=== PATIENT | female | born 1955 | race Caucasian/White ===

== ENCOUNTER 2020-02-07 11:10 | Outpatient (REF) | payer BC, SELFPAY ==
[2020-02-07 15:03] LABS: Anion Gap 11 (12-20); Blood Urea Nitrogen 15 mg/dL (9-16); Calcium 8.4 mg/dL (8.4-10.2); Carbon Dioxide 35 mmol/L (22-29); Chloride 98 mmol/L (96-108); Cholesterol 182 mg/dL; Estimated Glomerular Filt Rate > 60; Glucose Fasting 117 mg/dL (60-99); HDL Cholesterol 46 mg/dL; LDL Cholesterol Calculated 123 mg/dl; Potassium 3.3 mmol/l (3.3-5.1); Sodium 141 mmol/L (135-145); Triglycerides 67 mg/dL
== END 2020-02-07 11:11 | disposition home or self-care (01) ==
LOC: HO.HMGCLDS 11:10
PROVIDERS: PCP Internal Medicine; Visit Provider Internal Medicine
DX: E78.9 Disorder of lipoprotein metabolism, unspecified (principal); I10 Essential (primary) hypertension
CPT/HCPCS: 80048; 80061

== ENCOUNTER 2020-07-18 10:18 | Outpatient (REF) | payer BC, SELFPAY ==
[2020-07-18 11:39] LABS: Hematocrit 42.3 % (37-47); Hemoglobin 13.7 g/dl (12.0-16.0)
[2020-07-18 11:47] LABS: Alanine Aminotransferase 20 U/L (0-31); Albumin Level 4.1 g/dL (3.5-5.0); Alkaline Phosphatase 63 U/L (39-117); Anion Gap 13 (12-20); Aspartate Amino Transferase 15 U/L (5-31); Bilirubin Total 0.9 mg/dL (0.0-1.0); Blood Urea Nitrogen 16 mg/dL (9-16); Carbon Dioxide 31 mmol/L (22-29); Chloride 97 mmol/L (96-108); Cholesterol 188 mg/dL; Estimated Glomerular Filt Rate > 60; Glucose Fasting 113 mg/dL (60-99); HDL Cholesterol 41 mg/dL; LDL Cholesterol Calculated 130 mg/dl; Potassium 3.1 mmol/L (3.3-5.1); Sodium 138 mmol/L (135-145); Total Protein 6.8 g/dL (6.5-8.0); Triglycerides 86 mg/dL
[2020-07-18 12:05] LABS: Estimated Average Glucose 117 mg/dL; Hemoglobin A1c % 5.7 %
[2020-07-18 12:11] LABS: TSH reflex Free T4 0.71 uIU/mL (0.32-4.0)
== END 2020-07-18 10:19 | disposition home or self-care (01) ==
LOC: HO.HMGCLDS 10:18
PROVIDERS: PCP Internal Medicine; Visit Provider Internal Medicine
DX: E78.9 Disorder of lipoprotein metabolism, unspecified (principal); I10 Essential (primary) hypertension; K21.9 Gastro-esophageal reflux disease without esophagitis; R73.03 Prediabetes; F41.1 Generalized anxiety disorder
CPT/HCPCS: 36415; 80053; 80061; 83036; 84443; 85014; 85018

== ENCOUNTER 2020-10-19 09:47 | Outpatient (REF) | payer BC, SELFPAY ==
[2020-10-19 11:47] LABS: Estimated Average Glucose 111 mg/dL; Hemoglobin A1c % 5.5 %
[2020-10-19 11:49] LABS: Anion Gap 9 (12-20); Blood Urea Nitrogen 18 mg/dL (9-16); Carbon Dioxide 35 mmol/L (22-29); Chloride 100 mmol/L (96-108); Cholesterol 236 mg/dL; Estimated Glomerular Filt Rate > 60; Glucose Fasting 108 mg/dL (60-99); HDL Cholesterol 41 mg/dL; LDL Cholesterol Calculated 174 mg/dl; Potassium 3.4 mmol/L (3.3-5.1); Sodium 141 mmol/L (135-145); Triglycerides 109 mg/dL
[2020-10-19 12:11] LABS: TSH reflex Free T4 1.28 uIU/mL (0.32-4.0)
== END 2020-10-19 09:48 | disposition home or self-care (01) ==
LOC: HO.HMGCLDS 09:47
PROVIDERS: PCP Internal Medicine; Visit Provider Internal Medicine
DX: E78.9 Disorder of lipoprotein metabolism, unspecified (principal); F41.1 Generalized anxiety disorder; I10 Essential (primary) hypertension; K21.9 Gastro-esophageal reflux disease without esophagitis; R73.03 Prediabetes
CPT/HCPCS: 36415; 80048; 80061; 83036; 84443

== ENCOUNTER 2021-07-02 13:11 | Outpatient (REF) | payer BC, SELFPAY ==
[2021-07-02 14:27] LABS: Alanine Aminotransferase 24 U/L (0-31); Albumin Level 4.2 g/dL (3.5-5.0); Alkaline Phosphatase 51 U/L (39-117); Anion Gap 14 (12-20); Aspartate Amino Transferase 15 U/L (5-31); Bilirubin Total 0.7 mg/dL (0.0-1.0); Blood Urea Nitrogen 18 mg/dL (9-16); Calcium 9.4 mg/dL (8.4-10.2); Carbon Dioxide 32 mmol/L (22-29); Chloride 100 mmol/L (96-108); Cholesterol 157 mg/dL; Estimated Glomerular Filt Rate > 60; Glucose Fasting 92 mg/dL (60-99); HDL Cholesterol 33 mg/dL; LDL Cholesterol Calculated 113 mg/dl; Potassium 3.7 mmol/L (3.3-5.1); Sodium 142 mmol/L (135-145); Total Protein 7.1 g/dL (6.5-8.0); Triglycerides 58 mg/dL
== END 2021-07-02 13:12 | disposition home or self-care (01) ==
LOC: HO.HMGCLDS 13:11
PROVIDERS: PCP Internal Medicine; Visit Provider Internal Medicine
DX: F41.1 Generalized anxiety disorder (principal); I10 Essential (primary) hypertension; K21.9 Gastro-esophageal reflux disease without esophagitis; R73.03 Prediabetes; E78.9 Disorder of lipoprotein metabolism, unspecified
CPT/HCPCS: 36415; 80053; 80061

== ENCOUNTER 2022-08-22 10:01 | Outpatient (REF) | payer BC, SELFPAY ==
[2022-08-22 11:10] LABS: MANUAL DIFF FLAG NO
[2022-08-22 11:29] LABS: Basophils Percent Auto 0.5 % (0-2); Eosinophils Absolute Auto 0.1 X10*3/uL (0.0-0.4); Eosinophils Percent Auto 1.6 % (0-4); Hematocrit 43.3 % (37.0-47.0); Hemoglobin 14.4 g/dl (12.0-16.0); Imm Gran Abs Auto 0.02 X10*3/uL (0.00-0.03); Imm Gran Pct Auto 0.3 % (0.0-0.4); Lymphocytes Absolute Auto 1.5 X10*3/uL (1.2-4.9); Mean Corpuscular HGB Conc 33.3 g/dl (31.0-35.0); Mean Corpuscular Hemoglobin 29.1 pg (27.0-33.0); Mean Corpuscular Volume 87.5 fL (80.0-98.0); Monocytes Absolute Auto 0.5 X10*3/uL (0.1-1.2); Monocytes Percent Auto 6.6 % (2-11); Neutrophils Absolute Auto 5.7 x10*3/uL (2.0-8.3); Platelet Count 270 X10*3/uL (160-400); Red Blood Count 4.95 X10*6/uL (4.20-5.50)
[2022-08-22 11:32] LABS: Estimated Average Glucose 105 mg/dL; Hemoglobin A1c % 5.3 %
[2022-08-22 11:45] LABS: Alanine Aminotransferase 27 U/L (0-31); Albumin Level 4.2 g/dL (3.5-5.0); Alkaline Phosphatase 51 U/L (39-117); Anion Gap 12 (12-20); Aspartate Amino Transferase 20 U/L (5-31); Bilirubin Total 0.8 mg/dL (0.0-1.0); Blood Urea Nitrogen 19 mg/dL (9-16); Calcium 9.6 mg/dL (8.4-10.2); Carbon Dioxide 31 mmol/L (22-29); Chloride 100 mmol/L (96-108); Cholesterol 199 mg/dL; Estimated Glomerular Filt Rate > 60; Glucose Fasting 120 mg/dL (60-99); HDL Cholesterol 43 mg/dL; LDL Cholesterol Calculated 139 mg/dl; Potassium 3.3 mmol/L (3.3-5.1); Sodium 140 mmol/L (135-145); Total Protein 7.3 g/dL (6.5-8.0); Triglycerides 88 mg/dL
[2022-08-22 11:50] LABS: TSH reflex Free T4 1.27 uIU/mL (0.32-4.0)
== END 2022-08-22 10:02 | disposition home or self-care (01) ==
LOC: HO.HMGCLDS 10:01
PROVIDERS: PCP Internal Medicine; Visit Provider Internal Medicine
DX: E78.9 Disorder of lipoprotein metabolism, unspecified (principal); F41.1 Generalized anxiety disorder; K21.9 Gastro-esophageal reflux disease without esophagitis; R73.03 Prediabetes; I10 Essential (primary) hypertension
CPT/HCPCS: 36415; 80053; 80061; 83036; 84443; 85025

== ENCOUNTER 2022-11-15 09:27 | Outpatient (AMB) | payer BC, SELFPAY ==
--- NOTE | 2022-11-15 09:28 | MHC.PC.OV ---
Vital Signs 11/15/22 09:33 Height 5 ft 4 in Weight 224 lb BMI 38.4 BP 118/68 Blood Pressure Location Rt brachial Position Sitting Pulse 65 Pulse Source Pulse Oximeter Pulse Oximetry (%) 93 Oxygen Delivery Method Room Air Intake Visit Reasons: 4 month Follow UP Anxiety Allergies No Known Allergies [No Known Allergies*] Allergy (Verified 11/15/22 09:28) Medication List - Last Reconciled 11/15/22 by Mis Nichols MD atenolol-chlorthalidone 50-25 mg 1 tab PO DAILY escitalopram oxalate 5 mg PO DAILY pantoprazole 40 mg PO DAILY 90 days simvastatin 20 mg PO DAILY 90 days Tobacco use date assessed: 11/15/22 Fall risk assessment: No Falls in past year Last assessed Fall Risk: 11/15/22 Dental Screening Dental Screen Date: 11/15/22 Did you have a dental visit in the last 12 months?: Yes Did you have a dental problem in the last 6 months where you did not have access to dental care?: No Was dental information given to patient?: Patient has dentist HPI 4 month Follow UP Anxiety HPI Details Patient is a 67-year-old female came in today for follow-up appointment Patient is requesting Semaglutide injection to be started for weight loss Her BMI is 38.4 Side effect of medication discussed with the patient including thyroid cancer pancreatitis possibility of hypoglycemia Patient says that she is able to give injections to herself. Notified that she will be needing a visit within 4 weeks after starting the medication for evaluation I have also placed lab order that need to be done fasting. She is complaining of paresthesia mostly right hand also left hand patient has had carpal tunnel surgery in the past I have ordered nerve conduction study again. Blood pressure is stable patient is on atenolol chlorthalidone 50-25 mg, tolerating medication no side effects Anxiety/depression is stable with Lexapro 5 mg however patient is only taking it as needed. Lipid disorder stable with simvastatin 20 mg. Patient also take pantoprazole [address] Pope office because of hiatal hernia she has are appointment coming up for colonoscopy and EGD. Patient is to return in 4 months for her regular follow-up and 4 weeks if started on Semaglutide. [facility] Medical History Chronic GERD Vaginal yeast infection Anxiety, generalized Prediabetes Hypertension, essential Lipid disorder Surgical History History of carpal tunnel release History of section Hx of cholecystectomy Family History Father HTN (hypertension) Myocardial infarction Colon cancer Crohn's disease Mother HTN (hypertension) Diverticulitis Brother CAD (coronary artery disease) Maternal Grandfather History of heart attack Maternal Grandmother Lung cancer Paternal Grandfather No problems noted. Paternal Grandmother No problems noted. Brother No problems noted. Brother No problems noted. Sister No problems noted. Sister No problems noted. Sister No problems noted. Son No problems noted. Daughter No problems noted. Social History Housing: House Patient Tobacco Use Status: Never used Tobacco e-Cigarette/Vaping Use: Never Used service: No Current occupational status: retired Cognitive needs: No Hearing needs: No Vision needs: No Questionnaire PHQ-9 Over the last 2 weeks, how often have you been bothered by any of the following problems? 1. Little interest or pleasure in doing things: not at all 2. Feeling down, depressed, or hopeless: not at all 3. Trouble falling or staying asleep, or sleeping too much: not at all 4. Feeling tired or having little energy: not at all 5. Poor appetite or overeating: not at all 6. Feeling bad about yourself - or that you are a failure or have let yourself or your family down: not at all 7. Trouble concentrating on things, such as reading the newspaper or watching television: not at all 8. Moving or speaking so slowly that other people could have noticed. Or the opposite - being so fidgety or restless that you have been moving around a lot more than usual: not at all 9. Thoughts that you would be better off or of hurting yourself in some way: not at all Total score: 0 Depression Screening Interpretation: Negative [id number] - PHQ-9 Billing: Yes Source: Developed by Drs. Bud Dan, Saida Odom, Bal Tanner and colleagues, with an educational betzy from [employer]. Thrive Questionnaire Date Thrive assessed: 11/15/22 I am a: Patient What is your living situation today?: I have a steady place to live Within the past 12 months, did the food you bought not last and you didn't have the money to get more?: Never true Within the past 12 months, did you worry whether your food would run out before you got money to buy more?: Never true Do you have trouble paying for medicines?: No Do you have trouble getting transportation to medical appointments?: No Do you have trouble paying your heating and electricity bill?: No Do you have trouble taking care of your child, family member or friend?: No Do you have trouble with day-to-day activities such as bathing, preparing meals, shopping, managing finances, etc.?: No Are you currently unemployed and looking for a job?: No Are you interested in more education?: No AUDIT C Alcohol Use Questionnaire (AUDIT-C) 1. How often do you have a drink containing alcohol?: Never 3. How often do you have six or more drinks on one occasion?: Never Total Score: 0 Score Reviewed/Action Taken: Yes DOM-7 AMB Questionnaire DOM-7 Date DOM - 7 assessed: 11/15/22 Feeling nervous, anxious, or on edge: 0 = Not at all Not being able to stop or control worryin = Not at all Worrying too much about different things: 0 = Not at all Trouble relaxin = Not at all Being so restless that it is hard to sit still: 0 = Not at all Becoming easily annoyed or irritable: 0 = Not at all Feeling afraid as if something awful might happen: 0 = Not at all Total DOM-7 score (0-4 normal; 5-9 mild; 10-14 moderate; 15-21 severe): 0 Source: Developed by Drs. Bud Dan, Saida Odom, Bal Tanner and colleagues, with an educational betzy from [employer]. DOM-7 Assessment Billing DOM-7 Assessment Tool: DOM-7 Assessment 53242 Review of Systems Const Denies chills and Denies fever(s) ENT Denies epistaxis and Denies nasal discharge Card Denies chest pain Resp Denies chest congestion, Denies cough and Denies hemoptysis GI Denies diarrhea and Denies nausea Skin/Breast Denies rash Neuro Reports no additional complaints Psych Reports no additional complaints Endo Reports no additional complaints Physical exam (Primary Care) Vital Signs: Last Vital Signs Pulse 65 11/15/22 09:33 BP 118/68 11/15/22 09:33 Pulse Ox 93 11/15/22 09:33 Oxygen Delivery Method Room Air 11/15/22 09:33 BMI result Body Mass Index 38.4 Tobacco/Smoking Status: Tobacco use Status Tobacco use date assessed 11/15/22 11/15/22 09:29 Patient Tobacco Use Status Never used Tobacco 11/15/22 09:29 e-Cigarette/Vaping Use Never Used 11/15/22 09:29 PHQ-9: PHQ-9 Score PHQ-9: Total score 0 11/15/22 10:38 Depression Screening Interpretation: Negative Thrive Assessment: Date of Thrive Assessment Date Thrive assessed 11/15/22 11/15/22 10:11 Const General: cooperative, comfortable and no acute distress Orientation/consciousness: patient oriented x3 HENMT Head: Yes normocephalic Eyes General: appearance normal, both eyes and all related structures Neck Neck: Yes supple Resp Effort & Inspection: normal respiratory effort, no cough and no stridor Cardio Rhythm: regular rhythm Heart sounds: S1 normal heart sound present and S2 normal heart sound present Skin General skin exam: turgor normal Neuro General: patient oriented x3, tone normal and moves all extremities Extrem Right lower extremity: no edema Left lower extremity: no edema Assessment and Plan Assessment & Plan (1) Paresthesias in right hand: Code(s): R20.2 - Paresthesia of skin (2) Hypertension, essential: Code(s): I10 - Essential (primary) hypertension (3) Lipid disorder: Code(s): E78.9 - Disorder of lipoprotein metabolism, unspecified (4) Anxiety, generalized: Code(s): F41.1 - Generalized anxiety disorder (5) Chronic GERD: Code(s): K21.9 - Gastro-esophageal reflux disease without esophagitis (6) Prediabetes: Code(s): R73.03 - Prediabetes (7) Obesity due to excess calories: Code(s): E66.09 - Other obesity due to excess calories Qualifiers: Body mass index: BMI 38.0-38.9 Obesity classification: adult class 2 (BMI 35 - 39.9) Serious obesity comorbidity presence: with serious comorbidity Qualified Code(s): E66.01 - Morbid (severe) obesity due to excess calories; Z68.38 - Body mass index [BMI] 38.0-38.9, adult (8) Hiatal hernia: Code(s): K44.9 - Diaphragmatic hernia without obstruction or gangrene Plan Patient is a 67-year-old female came in today for follow-up appointment Patient is requesting Semaglutide injection to be started for weight loss Her BMI is 38.4 Side effect of medication discussed with the patient including thyroid cancer pancreatitis possibility of hypoglycemia Patient says that she is able to give injections to herself. Notified that she will be needing a visit within 4 weeks after starting the medication for evaluation I have also placed lab order that need to be done fasting. She is complaining of paresthesia mostly right hand also left hand patient has had carpal tunnel surgery in the past I have ordered nerve conduction study again. Blood pressure is stable patient is on atenolol chlorthalidone 50-25 mg, tolerating medication no side effects Anxiety/depression is stable with Lexapro 5 mg however patient is only taking it as needed. Lipid disorder stable with simvastatin 20 mg. Patient also take pantoprazole [address] Pope office because of hiatal hernia she has are appointment coming up for colonoscopy and EGD. Patient is to return in 4 months for her regular follow-up and 4 weeks if started on Semaglutide. Orders: Orders NE nerve conduction velocity Today R20.2 - Paresthesia of skin NE electromyogram (EMG) Today R20.2 - Paresthesia of skin Medications: New semaglutide for 4 weeks 0.25 mg (0.368 mL) subcut QWEEK 2 mL 0RF 30 days Coding Level of Care Code Est Pt Level 4 (71938) Diagnoses Paresthesias in right hand R20.2 Hypertension, essential I10 Lipid disorder E78.9 Anxiety, generalized F41.1 Chronic GERD K21.9 Prediabetes R73.03 Class 2 severe obesity due to excess calories with serious comorbidity and body mass index (BMI) of 38.0 to 38.9 in adult E66.01; Z68.38 Body mass index: BMI 38.0-38.9 Obesity classification: adult class 2 (BMI 35 - 39.9) Serious obesity comorbidity presence: with serious comorbidity Hiatal hernia K44.9 Additional Codes DOM-7 Assessment Billing - DOM-7 Assessment Tool: DOM-7 Assessment [id number] ([id number])
[2022-11-15 09:33] VITALS: BP 118/68; PULSE 65; O2SAT 93; BMI 38.4
== END 2022-11-15 09:54 | disposition home or self-care (01) ==
PROVIDERS: PCP Internal Medicine; Visit Provider Internal Medicine
DX: I10 Essential (primary) hypertension (principal); K21.9 Gastro-esophageal reflux disease without esophagitis; E66.01 Morbid (severe) obesity due to excess calories; Z68.38 Body mass index [BMI] 38.0-38.9, adult; R20.2 Paresthesia of skin; E78.9 Disorder of lipoprotein metabolism, unspecified; F41.1 Generalized anxiety disorder; R73.03 Prediabetes; K44.9 Diaphragmatic hernia without obstruction or gangrene
CPT/HCPCS: 99214

== ENCOUNTER 2022-12-19 09:50 | Outpatient (REF) | payer BC, SELFPAY ==
--- NOTE | 2022-12-19 10:00 | EMG_ITS ---
FINDINGS: Bilateral median and ulnar motor and sensory studies were performed. Bilateral radial sensory studies were performed and paraspinal muscles were tested with a needle. IMPRESSION: 1. Moderate right and [id number] left median neuropathy across carpal tunnel. 2. Mild right ulnar neuropathy across cubital tunnel. MD SHIN Mckeon/JOEL / [id number]
== END 2022-12-19 09:51 | disposition home or self-care (01) ==
LOC: HO.NEURO 09:50
PROVIDERS: PCP Internal Medicine; Visit Provider Internal Medicine
DX: R20.2 Paresthesia of skin (principal)
CPT/HCPCS: 95886; 95911

== ENCOUNTER 2022-12-31 09:56 | Outpatient (AMB) | payer BC, SELFPAY ==
--- NOTE | 2022-12-31 10:02 | A.OFFVIS_ITS ---
Intake Vital Signs 3 12/31/22 10:10 Height 5 ft 4 in Weight 226 lb 10.163 oz BMI 38.9 BP 126/63 Blood Pressure Location Rt brachial Position Sitting Pulse 66 Intake Visit Reasons: [place] Screening Intake Note: Patient presents to in office visit today as a new patient for colonoscopy screening. CC: Patient reports she had a colonoscopy with Dr. Pope about 7 years ago. Patient report she has a hiatal hernia and suffers from acid reflux. She states she is on medications but would like to get an EGD done as well to see if she is able to get off GERD medication. Allergies No Known Allergies [No Known Allergies*] Allergy (Verified 01/02/23 15:05) HPI [place] Screening 2 HPI0 Details 67-year-old female here for preprocedura l meeting to discuss a screening colonoscopy. She [place] Mis [place] [facility] [place]. PMX Morbid obesity Hypertension High cholesterol Pre diabetes Carpal tunnel syndrome Right hand paresthesias Generalized anxiety disorder GERD * SURGICAL HISTORY Carpal tunnel release The section Cholecystectomy * ALLERGIES: NKDA * [facility] LABS: Laboratory Tests 08/22/22 10:14 WBC 8.0 Hgb 14.4 Hct 43.3 Plt Count 270 Estimated GFR > 60 Total Bilirubin 0.8 AST 20 ALT 27 Alkaline Phosphata se 51 TSH 1.27 TODAY'S VISIT Her last colonoscopy was with Dr. Pope 6-7 years ago. She had a TA in 2009 but a neg scope in 2017. She has trouble with vomiting the prep. She denies any bowel problems, her GERD is well controlled she had some concerns re: o2o and dementia and I educated her about the overall findings of studies and that is is deemed safe at this time for fci use. There are no prior problems with anesthesia or sedation. She denies any cardiac or respiratory problems. No ID problems. Her father had CRC at age in 80's and survived, she had a TA in 2009. [facility] Medical History (Updated 01/02/23 @ 16:00 by Chelsea Perkins DO) Syncope Chronic GERD Vaginal yeast infection Anxiety, generalized Prediabetes Hypertension, essential Lipid disorder Surgical History History of carpal tunnel release History of section Hx of cholecystectomy Family History Father HTN (hypertension) Myocardial infarction Colon cancer Crohn's disease Mother HTN (hypertension) Diverticulitis Brother CAD (coronary artery disease) Maternal Grandfather History of heart attack Maternal Grandmother Lung cancer Paternal Grandfather No problems noted. Paternal Grandmother No problems noted. Brother No problems noted. Brother No problems noted. Sister No problems noted. Sister No problems noted. Sister No problems noted. Son No problems noted. Daughter No problems noted. Social History Housing: House Patient Tobacco Use Status: Never used Tobacco e-Cigarette/Vaping Use: Never Used service: No Current occupational status: retired Cognitive needs: No Hearing needs: No Vision needs: No Review of Systems Const Denies fatigue, Denies fever(s), Denies night sweats, Denies poor appetite, Reports weight gain and Denies weight loss ENT Reports Normal hearing present, Denies dysphagia, Denies odynophagia, Denies throat swelling and Denies tongue swelling Card Reports no additional complaints Resp Reports no additional complaints GI Denies abdominal pain, Denies melena, Denies bloating, Denies hematochezia, Denies constipation, Denies GI cramping, Denies dysphagia, Denies excessive flatus, Denies early satiety, Reports heartburn, Denies diarrhea, Denies nausea, Denies odynophagia, Denies vomiting and Denies hematemesis Skin/Breast Denies pruritus, Denies lesions, Denies rash and Denies jaundice Neuro Reports Normal hearing present and Denies Abnormal speech present Endo Denies fatigue Aller/Immun Denies throat swelling and Denies tongue swelling Physical Exam Vital Signs: Last Vital Signs Pulse 66 12/31/22 10:10 BP 126/63 12/31/22 10:10 BMI result Body Mass Index 38.9 Const General: cooperative, no acute distress, well developed and well groomed Nutritional Appearance: well nourished and obese morbidly obese Orientation/consciousness: oriented to person, oriented to place and oriented to time Limitations: No language barrier HEENT Head: Yes normocephalic and Yes atraumatic Eyes General: appearance normal, both eyes and all related structures Pupils: Equal, round and reactive pupils present Neck Neck: Yes normal visual inspection and Yes no lymphadenopathy Thyroid: Thyroid normal Resp Effort & Inspection: normal respiratory effort and able to speak in complete sentences Auscultation: clear to auscultation bilaterally Cardio Rate: regular rate Rhythm: regular rhythm Heart sounds: Normal, physiologic split S2 sound present Peripheral pulses: radial pulses present and posterior tibial pulses present GI Inspection: No distended, Yes Abdominal panniculus present and Yes obesity Palpation (GI): Soft to palpation, nontender, no guarding, not rigid and No hepatosplenomegaly present Percussion: Yes normal to percussion Auscultation: normal bowel sounds Rectal Exam - Female: deferred Abdomen image: 2 1. surgical scars 2. Skin General skin exam: no rashes or lesions noted, turgor normal, skin not dry, no jaundice, No spider nevi and no striae Rashes: no rashes Nails: normal Neuro General: oriented to person, oriented to place and oriented to time Cranial nerves: Yes Equal, round and reactive pupils present and Yes Normal hearing present Speech: No Abnormal speech present Extrem General: Yes normal to inspection, No clubbing, No cyanosis and No edema Psych Appearance: grossly normal and well kempt Mental Status: mental status grossly normal Speech and movement: Normal speech and movement present Affect: normal affect Attitude: cooperative Thought process: Normal thought process present and not confabulating Thought content: Normal thought content present Insight: Fair insight present (Psych) Judgement: Fair judgement present (Psych) Results Reviewed Results Reviewed: Laboratory Tests 08/22/22 10:14 WBC 8.0 Hgb 14.4 Hct 43.3 Plt Count 270 Estimated GFR > 60 Total Bilirubin 0.8 AST 20 ALT 27 Alkaline Phosphatase 51 TSH 1.27 Assessment & Plan Assessment & Plan (1) Tubular adenoma of colon: Code(s): D12.6 - Benign neoplasm of colon, unspecified Plan: Her last colonoscopy was with Dr. Pope 6-7 years ago. She had a TA in 2009 but a neg scope in 2017. She has trouble with vomiting the prep. 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 There are no prior problems with anesthesia or sedation. She denies any cardiac or respiratory problems. No ID problems. Her father had CRC at age in 80's and survived, she had a TA in 2009. (2) Nausea and vomiting: Code(s): R11.2 - Nausea with vomiting, unspecified (3) Pre-op examination: Code(s): Z01.818 - Encounter for other preprocedural examination Orders: Orders 2 Colonoscopy - GI Use Only 12/31/22 Z01.818 - Encounter for other preprocedural examination Medications: New 2 sodium,potassium,mag sulfates 17.5-3.13-1.6 gram (Suprep Bowel Prep Kit) 480 mL orally; 354 mL 0RF D12.6 - Benign neoplasm of colon, unspecified ondansetron HCl 4 mg PO ONCE PRN 3 tabs 0RF nausea and vomiting 14 days R11.2 - Nausea with vomiting, unspecified, D12.6 - Benign neoplasm of colon, unspecified Coding Level of Care Code New Pt Level 3 (30060) Diagnoses Tubular adenoma of colon D12.6 Nausea and vomiting R11.2 Pre-op examination Z01.818
[2022-12-31 10:10] VITALS: BP 126/63; PULSE 66; BMI 38.9
== END 2022-12-31 10:44 | disposition home or self-care (01) ==
PROVIDERS: PCP Internal Medicine; Visit Provider Nurse Practitioner
DX: D12.6 Benign neoplasm of colon, unspecified (principal); R11.2 Nausea with vomiting, unspecified; Z01.818 Encounter for other preprocedural examination
CPT/HCPCS: 99203

== ENCOUNTER → 2022-12-31 09:56 | Outpatient (BNVA) | payer BC, SELFPAY | PROVIDERS: PCP Internal Medicine; Visit Provider Nurse Practitioner ==

== ENCOUNTER 2023-01-02 15:03 | Outpatient (AMB) | payer BC, SELFPAY ==
[2023-01-02 15:04] VITALS: BP 140/80; PULSE 68; TEMP 36.6; O2SAT 97; BMI 37.9
--- NOTE | 2023-01-02 15:04 | AM.OFFWIN_ITS ---
Intake Vital Signs 01/02/23 15:04 Height 5 ft 4 in Weight 221 lb BMI 37.9 BP 140/80 H Blood Pressure Location Rt brachial Position Sitting Pulse 68 Pulse Source Pulse Oximeter Temp 97.8 F Temp Source Temporal Artery Scan Pulse Oximetry (%) 97 Oxygen Delivery Method Room Air Intake Visit Reasons: EST/passed out last night(lobby) Intake Note: pt is here for fainted last night, complete black out for a few seconds Patient Tobacco Use Status: Never used Tobacco Allergies No Known Allergies [No Known Allergies*] Allergy (Verified 01/02/23 15:05) Do you need a note to return to daycare/school/sports/work: No HPI HPI Comments History of Present Illness Details The patient presents to urgent care for evaluation of a syncopal episode last night. She states that she was on the couch downstairs and was getting up to go up stairs to bed however as she was moving to get up off the couch she felt woozy as if she is going to pass out awoke on the floor in front of the couch. She did not injure herself from the syncopal episode. She felt as though her whole body was dizzy. She was able to get herself back on the couch and then got her 's attention to help her to get up off the couch and get up the stairs. She did not complain of any other symptoms though she states that last night she felt a little chilled. Last night was feeling well prior to the episode no symptoms. Today she feels completely normal and asymptomatic. Patient denies chest pain shortness of breath fever chills. No dysuria. [facility] Medical History (Updated 01/02/23 @ 16:00 by Chelsea Perkins DO) Syncope Chronic GERD Vaginal yeast infection Anxiety, generalized Prediabetes Hypertension, essential Lipid disorder Surgical History History of carpal tunnel release History of section Hx of cholecystectomy Family History Father HTN (hypertension) Myocardial infarction Colon cancer Crohn's disease Mother HTN (hypertension) Diverticulitis Brother CAD (coronary artery disease) Maternal Grandfather History of heart attack Maternal Grandmother Lung cancer Paternal Grandfather No problems noted. Paternal Grandmother No problems noted. Brother No problems noted. Brother No problems noted. Sister No problems noted. Sister No problems noted. Sister No problems noted. Son No problems noted. Daughter No problems noted. Social History Housing: House Patient Tobacco Use Status: Never used Tobacco e-Cigarette/Vaping Use: Never Used service: No Current occupational status: retired Cognitive needs: No Hearing needs: No Vision needs: No Physical Exam Vital Signs: Last Vital Signs Temp 97.8 F 01/02/23 15:04 Pulse 68 01/02/23 15:04 BP 140/80 H 01/02/23 15:04 Pulse Ox 97 01/02/23 15:04 Oxygen Delivery Method Room Air 01/02/23 15:04 BMI result Body Mass Index 37.9 Const General: healthy appearing and no acute distress Orientation/consciousness: patient oriented x3 Eyes Corneas: corneas normal Pupils: Equal, round and reactive pupils present Chest Chest palpation & inspection: no tenderness Resp Effort & Inspection: normal respiratory effort and able to speak in complete sentences Auscultation: clear to auscultation bilaterally Cardio Jugular venous distension: no JVD Palpation: normal PMI Rate: regular rate Rhythm: regular rhythm Heart sounds: S1 normal heart sound present and S2 normal heart sound present GI Palpation (GI): nontender Neuro General: patient oriented x3 Cranial nerves: Yes Equal, round and reactive pupils present Psych Appearance: grossly normal Attitude: cooperative Results AMB Urinalysis, Automated UA Leukoctes 500 Desirae/uL Last Edit by Cierra Meneses CMA on 01/02/23 15:50 UA Nitrite Negative Last Edit by Cierra Meneses CMA on 01/02/23 15:50 UA Urobilinogen 0.2 mg/dL Last Edit by Cierra Meneses CMA on 01/02/23 15:50 UA Protein 0 mg/dL Last Edit by Cierra Meneses CMA on 01/02/23 15:50 UA pH 6.0 Last Edit by Cierra Meneses CMA on 01/02/23 15:50 UA Blood 0 Shukri/uL Last Edit by Cierra Meneses CMA on 01/02/23 15:50 UA Specific [place] 1.020 Last Edit by Cierra Meneses CMA on 01/02/23 15:50 UA Ketone Negative Last Edit by Cierra Meneses CMA on 01/02/23 15:50 UA Bilirubin 0 mg/dL Last Edit by Cierra Meneses CMA on 01/02/23 15:50 UA Glucose 0 mg/dL Last Edit by Cierra Meneses CMA on 01/02/23 15:50 Assessment & Plan Assessment & Plan (1) Syncope: Code(s): R55 - Syncope and collapse Plan the patient had a syncopal episode last night with some associated chills. Her EKG in the office today shows sinus bradycardia 57 beats per minute no ST T-wave changes to suggest ischemia no ectopy. UA noted above shows 500 leukocyte esterase. This may be denial management representative of a developing UTI and this may have caused the patient's symptoms last night. She does admit to having feeling tired for the past 1-2 weeks as well. Will treat with an antibiotic and recommend close follow-up to PCP. Patient will return in the morning for blood work. Orders: Orders Complete Blood Count Auto Diff Today R53.1 - Weakness Comprehensive Met. Panel Today R10.9 - Unspecified abdominal pain AMB EKG-In Office Today R55 - Syncope and collapse Urine Culture Today R30.0 - Dysuria AMB Urinalysis Automated Today Z13.9 - Encounter for screening, unspecified Coding Level of Care Code Est Pt Level 4 (63626) Diagnoses Syncope R55
== END 2023-01-02 16:22 | disposition home or self-care (01) ==
PROVIDERS: PCP Internal Medicine; Visit Provider Emergency Medicine
DX: R55 Syncope and collapse (principal)
CPT/HCPCS: 81003; 99214

== ENCOUNTER 2023-01-02 16:05 | Outpatient (REF) | payer BC, SELFPAY | END 2023-01-02 16:06 | disposition home or self-care (01) | LOC: HO.LAB 16:05 | PROVIDERS: Visit Provider Emergency Medicine | DX: R30.0 Dysuria (principal) | CPT/HCPCS: 87086 ==

== ENCOUNTER 2023-01-03 11:37 | Outpatient (REF) | payer BC, SELFPAY ==
[2023-01-03 13:14] LABS: MANUAL DIFF FLAG NO
[2023-01-03 13:32] LABS: Basophils Absolute Auto 0.1 X10*3/uL (0.0-0.2); Basophils Percent Auto 0.7 % (0-2); Eosinophils Absolute Auto 0.2 X10*3/uL (0.0-0.4); Eosinophils Percent Auto 2.1 % (0-4); Hematocrit 42.7 % (37.0-47.0); Imm Gran Abs Auto 0.02 X10*3/uL (0.00-0.03); Imm Gran Pct Auto 0.3 % (0.0-0.4); Lymphocytes Absolute Auto 1.5 X10*3/uL (1.2-4.9); Lymphocytes Percent Auto 20.4 % (20-40); Mean Corpuscular HGB Conc 32.8 g/dl (31.0-35.0); Mean Corpuscular Hemoglobin 29.1 pg (27.0-33.0); Mean Corpuscular Volume 88.8 fL (80.0-98.0); Mean Platelet Volume 10.1 fL (9.4-12.3); Monocytes Absolute Auto 0.5 X10*3/uL (0.1-1.2); Monocytes Percent Auto 6.2 % (2-11); Neutrophils Absolute Auto 5.3 x10*3/uL (2.0-8.3); Neutrophils Percent Auto 70.3 % (45-73); Platelet Count 288 X10*3/uL (160-400); Red Blood Count 4.81 X10*6/uL (4.20-5.50); Red Cell Distribution Width 14.9 % (11.0-16.0); White Blood Count 7.6 X10*3/uL (4.8-10.8)
[2023-01-03 13:47] LABS: Alanine Aminotransferase 15 U/L (0-31); Albumin Level 4.2 g/dL (3.5-5.0); Alkaline Phosphatase 55 U/L (39-117); Anion Gap 11 (12-20); Aspartate Amino Transferase 15 U/L (5-31); Bilirubin Total 0.5 mg/dL (0.0-1.0); Blood Urea Nitrogen 16 mg/dL (9-16); Calcium 8.9 mg/dL (8.4-10.2); Carbon Dioxide 32 mmol/L (22-29); Chloride 101 mmol/L (96-108); Estimated Glomerular Filt Rate > 60; Glucose Random 142 mg/dL (60-115); Potassium 3.5 mmol/L (3.3-5.1); Sodium 140 mmol/L (135-145); Total Protein 7.2 g/dL (6.5-8.0)
== END 2023-01-03 11:38 | disposition home or self-care (01) ==
LOC: HO.HMGCLDS 11:37
PROVIDERS: PCP Internal Medicine; Visit Provider Emergency Medicine
DX: R10.9 Unspecified abdominal pain (principal); R53.1 Weakness
CPT/HCPCS: 36415; 80053; 85025

== ENCOUNTER 2023-05-20 08:41 | Outpatient (AMB) | payer BC, SELFPAY ==
[2023-05-20 08:47] VITALS: BP 124/80; PULSE 79; O2SAT 98; BMI 37.2
--- NOTE | 2023-05-20 08:47 | MHC.PC.OV ---
Vital Signs 05/20/23 08:47 Height 5 ft 4 in Weight 216 lb 8 oz BMI 37.2 BP 124/80 Blood Pressure Location Rt brachial Position Sitting Pulse 79 Pulse Source Pulse Oximeter Pulse Oximetry (%) 98 Oxygen Delivery Method Room Air Intake Visit Reasons: 4 month Follow UP Anxiety Allergies No Known Allergies [No Known Allergies*] Allergy (Verified 05/20/23 08:48) Medication List - Last Reconciled 05/20/23 by Mis Nichols MD atenolol-chlorthalidone 50-25 mg 1 tab PO DAILY escitalopram oxalate 5 mg PO DAILY ondansetron HCl 4 mg PO ONCE PRN 14 days pantoprazole 40 mg PO DAILY 90 days simvastatin 20 mg PO DAILY 90 days sodium,potassium,mag sulfates 17.5-3.13-1.6 gram (Suprep Bowel Prep Kit) 480 mL orally; Wegovy (semaglutide (weight loss)) 0.25 mg (0.5 mL) subcut QWEEK NS Tobacco use date assessed: 05/20/23 Fall risk assessment: No Falls in past year Last assessed Fall Risk: 05/20/23 Dental Screening Dental Screen Date: 05/20/23 Did you have a dental visit in the last 12 months?: Yes Did you have a dental problem in the last 6 months where you did not have access to dental care?: No Was dental information given to patient?: Patient has dentist HPI 4 month Follow UP Anxiety HPI Details Patient is 68-year-old female came in today for her regular follow-up appointment Patient started Wegovy injections end of last year, she is able to lose weight on that She is feeling good she tells me, she has started walking and eating healthy She weighs 211 at her home scale, she started with 229 when she started the injection. Patient is currently on 0.25 mg does she would like to go up 2.5. Script sent for next three-month She has appointment in July for physical exam Blood pressure is well-controlled, she is on atenolol chlorthalidone 50-25 mg once a day Anxiety stable with escitalopram 5 mg only as needed Patient have a history of hiatal hernia with GERD symptoms are controlled with pantoprazole 40 mg Continue simvastatin 20 mg for lipid control Labs to be done today fasting BMI is 37.2 patient is working on that. Follow-up in July. [facility] Medical History Syncope Chronic GERD Vaginal yeast infection Anxiety, generalized Prediabetes Hypertension, essential Lipid disorder Surgical History History of carpal tunnel release History of section Hx of cholecystectomy Family History Father HTN (hypertension) Myocardial infarction Colon cancer Crohn's disease Mother HTN (hypertension) Diverticulitis Brother CAD (coronary artery disease) Maternal Grandfather History of heart attack Maternal Grandmother Lung cancer Paternal Grandfather No problems noted. Paternal Grandmother No problems noted. Brother No problems noted. Brother No problems noted. Sister No problems noted. Sister No problems noted. Sister No problems noted. Son No problems noted. Daughter No problems noted. Social History Housing: House Patient Tobacco Use Status: Never used Tobacco e-Cigarette/Vaping Use: Never Used service: No Current occupational status: retired Cognitive needs: No Hearing needs: No Vision needs: No Questionnaire Thrive Questionnaire Date Thrive assessed: 11/15/22 DOM-7 AMB Questionnaire DOM-7 Date DOM - 7 assessed: 11/15/22 Source: Developed by Drs. Bud Dan, Saida Odom, Bal Tanner and colleagues, with an educational betzy from [employer]. Review of Systems Const Denies chills and Denies fever(s) ENT Denies epistaxis and Denies nasal discharge Card Denies chest pain Resp Denies chest congestion, Denies cough and Denies hemoptysis GI Denies diarrhea and Denies nausea Skin/Breast Denies rash Neuro Reports no additional complaints Psych Reports no additional complaints Endo Reports no additional complaints Physical exam (Primary Care) Vital Signs: Last Vital Signs Pulse 79 05/20/23 08:47 BP 124/80 05/20/23 08:47 Pulse Ox 98 05/20/23 08:47 Oxygen Delivery Method Room Air 05/20/23 08:47 BMI result Body Mass Index 37.2 Tobacco/Smoking Status: Tobacco use Status Tobacco use date assessed 05/20/23 05/20/23 08:51 Patient Tobacco Use Status Never used Tobacco 05/20/23 08:51 e-Cigarette/Vaping Use Never Used 05/20/23 08:51 Thrive Assessment: Date of Thrive Assessment Date Thrive assessed 11/15/22 05/20/23 08:51 Const General: cooperative, comfortable and no acute distress Orientation/consciousness: patient oriented x3 HENMT Head: Yes normocephalic Eyes General: appearance normal, both eyes and all related structures Neck Neck: Yes supple Resp Effort & Inspection: normal respiratory effort, no cough and no stridor Cardio Rhythm: regular rhythm Heart sounds: S1 normal heart sound present and S2 normal heart sound present Skin General skin exam: turgor normal Neuro General: patient oriented x3, tone normal and moves all extremities Extrem Right lower extremity: no edema Left lower extremity: no edema Assessment and Plan Assessment & Plan (1) Chronic GERD: Code(s): K21.9 - Gastro-esophageal reflux disease without esophagitis (2) Anxiety, generalized: Code(s): F41.1 - Generalized anxiety disorder (3) Prediabetes: Code(s): R73.03 - Prediabetes (4) Hypertension, essential: Code(s): I10 - Essential (primary) hypertension (5) Lipid disorder: Code(s): E78.9 - Disorder of lipoprotein metabolism, unspecified (6) Obesity due to excess calories: Code(s): E66.09 - Other obesity due to excess calories Qualifiers: Body mass index: BMI 38.0-38.9 Obesity classification: adult class 2 (BMI 35 - 39.9) Serious obesity comorbidity presence: with serious comorbidity Qualified Code(s): E66.01 - Morbid (severe) obesity due to excess calories; Z68.38 - Body mass index [BMI] 38.0-38.9, adult Orders: Orders Complete Blood Count Auto Diff Today E78.9 - Disorder of lipoprotein metabolism, unspecified, F41.1 - Generalized anxiety disorder, I10 - Essential (primary) hypertension, K21.9 - Gastro-esophageal reflux disease without esophagitis, R73.03 - Prediabetes Comprehensive Norco. Panel Fast Today E78.9 - Disorder of lipoprotein metabolism, unspecified, F41.1 - Generalized anxiety disorder, I10 - Essential (primary) hypertension, K21.9 - Gastro-esophageal reflux disease without esophagitis, R73.03 - Prediabetes Lipid Panel Today E78.9 - Disorder of lipoprotein metabolism, unspecified, F41.1 - Generalized anxiety disorder, I10 - Essential (primary) hypertension, K21.9 - Gastro-esophageal reflux disease without esophagitis, R73.03 - Prediabetes TSH reflex Free T4 Today E66.09 - Other obesity due to excess calories Medications: Changed From Wegovy (semaglutide (weight loss)) administer weeks 1 through 4 of therapy 0.25 mg (0.5 mL) subcut QWEEK 2 mL 0RF NS To semaglutide (weight loss) administer weeks 1 through 4 of therapy 0.5 mg (0.5 mL) subcut QWEEK 6.5 mL 0RF 90 days Coding Level of Care Code Est Pt Level 4 (60373) Diagnoses Chronic GERD K21.9 Anxiety, generalized F41.1 Prediabetes R73.03 Hypertension, essential I10 Lipid disorder E78.9 Class 2 severe obesity due to excess calories with serious comorbidity and body mass index (BMI) of 38.0 to 38.9 in adult E66.01; Z68.38 Body mass index: BMI 38.0-38.9 Obesity classification: adult class 2 (BMI 35 - 39.9) Serious obesity comorbidity presence: with serious comorbidity
== END 2023-05-20 09:18 | disposition home or self-care (01) ==
PROVIDERS: PCP Internal Medicine; Visit Provider Internal Medicine
DX: K21.9 Gastro-esophageal reflux disease without esophagitis (principal); E66.01 Morbid (severe) obesity due to excess calories; Z68.38 Body mass index [BMI] 38.0-38.9, adult; F41.1 Generalized anxiety disorder; E78.9 Disorder of lipoprotein metabolism, unspecified; R73.03 Prediabetes; I10 Essential (primary) hypertension
CPT/HCPCS: 99214

== ENCOUNTER 2023-05-20 09:04 | Outpatient (REF) | payer BC, SELFPAY ==
[2023-05-20 11:39] LABS: MANUAL DIFF FLAG NO
[2023-05-20 11:47] LABS: Basophils Absolute Auto 0.1 X10*3/uL (0.0-0.2); Basophils Percent Auto 0.6 % (0-2); Eosinophils Absolute Auto 0.2 X10*3/uL (0.0-0.4); Eosinophils Percent Auto 1.8 % (0-4); Hematocrit 42.9 % (37.0-47.0); Hemoglobin 14.5 g/dl (12.0-16.0); Imm Gran Abs Auto 0.02 X10*3/uL (0.00-0.03); Imm Gran Pct Auto 0.2 % (0.0-0.4); Lymphocytes Absolute Auto 1.5 X10*3/uL (1.2-4.9); Lymphocytes Percent Auto 17.4 % (20-40); Mean Corpuscular HGB Conc 33.8 g/dl (31.0-35.0); Mean Corpuscular Hemoglobin 29.5 pg (27.0-33.0); Mean Corpuscular Volume 87.4 fL (80.0-98.0); Mean Platelet Volume 10.1 fL (9.4-12.3); Monocytes Absolute Auto 0.6 X10*3/uL (0.1-1.2); Monocytes Percent Auto 6.6 % (2-11); Neutrophils Absolute Auto 6.3 x10*3/uL (2.0-8.3); Neutrophils Percent Auto 73.4 % (45-73); Platelet Count 306 X10*3/uL (160-400); Red Blood Count 4.91 X10*6/uL (4.20-5.50); White Blood Count 8.5 X10*3/uL (4.8-10.8)
[2023-05-20 13:09] LABS: Alanine Aminotransferase 17 U/L (0-31); Albumin Level 4.4 g/dL (3.5-5.0); Alkaline Phosphatase 59 U/L (39-117); Anion Gap 14 (12-20); Aspartate Amino Transferase 14 U/L (5-31); Bilirubin Total 0.7 mg/dL (0.0-1.0); Blood Urea Nitrogen 18 mg/dL (9-16); Calcium 9.5 mg/dL (8.4-10.2); Carbon Dioxide 31 mmol/L (22-29); Chloride 101 mmol/L (96-108); Cholesterol 165 mg/dL (<200); Estimated Glomerular Filt Rate > 60; Glucose Fasting 109 mg/dL (60-99); HDL Cholesterol 44 mg/dL (>40); LDL Cholesterol Calculated 105 mg/dL (<100); Potassium 3.1 mmol/L (3.3-5.1); Sodium 143 mmol/L (135-145); Total Protein 7.5 g/dL (6.5-8.0); Triglycerides 81 mg/dL (<150)
== END 2023-05-20 09:05 | disposition home or self-care (01) ==
LOC: HO.HMGCLDS 09:04
PROVIDERS: PCP Internal Medicine; Visit Provider Internal Medicine
DX: K21.9 Gastro-esophageal reflux disease without esophagitis (principal); F41.1 Generalized anxiety disorder; R73.03 Prediabetes; I10 Essential (primary) hypertension; E78.9 Disorder of lipoprotein metabolism, unspecified; E66.09 Other obesity due to excess calories
CPT/HCPCS: 36415; 80053; 80061; 84443; 85025

== ENCOUNTER 2023-08-08 08:59 | Outpatient (AMB) | payer BC, SELFPAY ==
--- NOTE | 2023-08-08 09:00 | MHC.PC.OV ---
Vital Signs 08/08/23 09:02 Height 5 ft 4 in Weight 199 lb BMI 34.2 BP 110/72 Blood Pressure Location Rt brachial Position Sitting Pulse 72 Pulse Source Pulse Oximeter Pulse Oximetry (%) 96 Oxygen Delivery Method Room Air Intake Visit Reasons: Annual PE Allergies No Known Allergies [No Known Allergies*] Allergy (Verified 08/08/23 09:02) Medication List - Last Reconciled 08/08/23 by Mis Nichols MD atenolol-chlorthalidone 50-25 mg 1 tab PO DAILY escitalopram oxalate 5 mg PO DAILY ondansetron HCl 4 mg PO ONCE PRN 14 days pantoprazole 40 mg PO DAILY 90 days semaglutide (weight loss) 1 mg (0.5 mL) subcut QWEEK 90 days simvastatin 20 mg PO DAILY 90 days sodium,potassium,mag sulfates 17.5-3.13-1.6 gram (Suprep Bowel Prep Kit) 480 mL orally; Tobacco use date assessed: 05/20/23 Fall risk assessment: No Falls in past year Last assessed Fall Risk: 08/08/23 Dental Screening Dental Screen Date: 05/20/23 HPI Annual PE HPI Details Patient is 68-year-old female came in today for physical exam Blood pressure is well-controlled Anxiety stable GERD is stable Patient is on semaglutide injection 1 mg since April , she is says that she feels nausea 1st day that she takes injection, she is requesting Zofran script which I have sent for her She has lost 17 lb I have told her to start monitoring her blood pressure we might have to reduce her blood pressure medication as she continued to lose weight Medication list reviewed OBGYN visit is due, referral placed Colonoscopy will be in October of this year Mammogram is up-to-date Lab order placed to be done today, her potassium was low in April and she also have impaired fasting sugar. Follow-up 3 months [facility] Medical History Syncope Chronic GERD Vaginal yeast infection Anxiety, generalized Prediabetes Hypertension, essential Lipid disorder Surgical History History of carpal tunnel release History of section Hx of cholecystectomy Family History Father HTN (hypertension) Myocardial infarction Colon cancer Crohn's disease Mother HTN (hypertension) Diverticulitis Brother CAD (coronary artery disease) Maternal Grandfather History of heart attack Maternal Grandmother Lung cancer Paternal Grandfather No problems noted. Paternal Grandmother No problems noted. Brother No problems noted. Brother No problems noted. Sister No problems noted. Sister No problems noted. Sister No problems noted. Son No problems noted. Daughter No problems noted. Social History Housing: House Patient Tobacco Use Status: Never used Tobacco e-Cigarette/Vaping Use: Never Used service: No Current occupational status: retired Cognitive needs: No Hearing needs: No Vision needs: No Questionnaire PHQ-9 Over the last 2 weeks, how often have you been bothered by any of the following problems? 1. Little interest or pleasure in doing things: not at all 2. Feeling down, depressed, or hopeless: not at all 3. Trouble falling or staying asleep, or sleeping too much: not at all 4. Feeling tired or having little energy: not at all 5. Poor appetite or overeating: not at all 6. Feeling bad about yourself - or that you are a failure or have let yourself or your family down: not at all 7. Trouble concentrating on things, such as reading the newspaper or watching television: not at all 8. Moving or speaking so slowly that other people could have noticed. Or the opposite - being so fidgety or restless that you have been moving around a lot more than usual: not at all 9. Thoughts that you would be better off or of hurting yourself in some way: not at all Total score: 0 Depression Screening Interpretation: Negative Depression Screening Done: Yes 74194 - PHQ-9 Billing: Yes Source: Developed by Drs. Bud Dan, Saida Odom, Bal Tanner and colleagues, with an educational betzy from [email or web address]. Thrive Questionnaire Date Thrive assessed: 08/08/23 I am a: Patient What is your living situation today?: I have a steady place to live Within the past 12 months, did the food you bought not last and you didn't have the money to get more?: Never true Within the past 12 months, did you worry whether your food would run out before you got money to buy more?: Never true Do you have trouble paying for medicines?: No Do you have trouble getting transportation to medical appointments?: No Do you have trouble paying your heating and electricity bill?: No Do you have trouble taking care of your child, family member or friend?: No Do you have trouble with day-to-day activities such as bathing, preparing meals, shopping, managing finances, etc.?: No Are you currently unemployed and looking for a job?: No Are you interested in more education?: No Please select the resources that you would like help with: None Currently or been in a relationship where the following occur: I choose not to answer this question THRIVE Score: 0 AUDIT C Alcohol Use Questionnaire (AUDIT-C) 1. How often do you have a drink containing alcohol?: Never 3. How often do you have six or more drinks on one occasion?: Never Total Score: 0 Score Reviewed/Action Taken: No DOM-7 AMB Questionnaire DOM-7 Date DOM - 7 assessed: 08/08/23 Feeling nervous, anxious, or on edge: 0 = Not at all Not being able to stop or control worryin = Not at all Worrying too much about different things: 1 = Several days Trouble relaxin = Several days Being so restless that it is hard to sit still: 1 = Several days Becoming easily annoyed or irritable: 0 = Not at all Feeling afraid as if something awful might happen: 0 = Not at all Total DOM-7 score (0-4 normal; 5-9 mild; 10-14 moderate; 15-21 severe): 3 Source: Developed by Drs. Bud Dan, Saida Odom, Bal Tanner and colleagues, with an educational betzy from [email or web address]. DOM-7 Assessment Billing DOM-7 Assessment Tool: DOM-7 Assessment 36980 Review of Systems Const Denies chills, Denies fever(s) and Denies headache(s) Eyes Denies blurry vision ENT Denies headache(s), Denies nasal discharge, Denies nasal obstruction, Denies odynophagia and Denies sinus pain Card Denies chest pain at rest and Denies chest pain with activity Resp Denies cough and Denies hemoptysis GI Denies diarrhea, Denies odynophagia, Denies vomiting and Denies hematemesis Reports as per HPI Musc Denies abnormal gait Skin/Breast Reports as per HPI Neuro Denies Neuro-related abnormal movements, Denies Abnormal speech present, Denies abnormal gait, Denies headache(s) and Denies Sensory deficit (Neuro) Psych Denies mood swings and Denies paranoia Endo Reports as per HPI Terrence/Lymph Reports as per HPI Aller/Immun Reports as per HPI Physical exam (Primary Care) Vital Signs: Last Vital Signs Pulse 72 08/08/23 09:02 BP 110/72 08/08/23 09:02 Pulse Ox 96 08/08/23 09:02 Oxygen Delivery Method Room Air 08/08/23 09:02 BMI result Body Mass Index 34.2 Tobacco/Smoking Status: Tobacco use Status Tobacco use date assessed 05/20/23 08/08/23 09:00 Patient Tobacco Use Status Never used Tobacco 08/08/23 09:00 e-Cigarette/Vaping Use Never Used 08/08/23 09:00 Depression Screening Interpretation: Negative Thrive Assessment: Date of Thrive Assessment Date Thrive assessed 11/15/22 08/08/23 09:00 Currently or been in a relationship where the following occur: I choose not to answer this question Const General: cooperative, comfortable and no acute distress Orientation/consciousness: patient oriented x3 HENMT Head: Yes normocephalic and Yes atraumatic Eyes General: appearance normal, both eyes and all related structures Pupils: Equal, round and reactive pupils present EOM: EOMs intact bilaterally Neck Neck: Yes supple and No lymphadenopathy Thyroid: Thyroid normal Lymphatic: no lymphadenopathy noted Resp Effort & Inspection: normal respiratory effort and able to speak in complete sentences Auscultation: clear to auscultation bilaterally Cardio Heart sounds: S1 normal heart sound present and S2 normal heart sound present GI Palpation (GI): Soft to palpation and nontender Auscultation: normal bowel sounds General: Yes no CVA tenderness Back/Spine/Pelvis Back: no CVA tenderness Skin General skin exam: elasticity normal and turgor normal Neuro General: patient oriented x3 and gait normal Cranial nerves: Yes Equal, round and reactive pupils present Speech: No Abnormal speech present Sensory Exam: No Sensory deficit (Neuro) Coordination: tandem gait normal and Romberg test negative Extrem General: Yes normal exam except as noted and No edema Assessment and Plan Assessment & Plan (1) Encounter for general adult medical examination with abnormal findings: Code(s): Z00.01 - Encounter for general adult medical examination with abnormal findings (2) Nausea: Code(s): R11.0 - Nausea (3) Lipid disorder: Code(s): E78.9 - Disorder of lipoprotein metabolism, unspecified (4) Hypertension, essential: Code(s): I10 - Essential (primary) hypertension (5) Prediabetes: Code(s): R73.03 - Prediabetes (6) Anxiety, generalized: Code(s): F41.1 - Generalized anxiety disorder (7) Chronic GERD: Code(s): K21.9 - Gastro-esophageal reflux disease without esophagitis (8) Hypokalemia: Code(s): E87.6 - Hypokalemia (9) Obesity due to excess calories: Code(s): E66.09 - Other obesity due to excess calories Qualifiers: Body mass index: BMI 38.0-38.9 Obesity classification: adult class 2 (BMI 35 - 39.9) Serious obesity comorbidity presence: with serious comorbidity Qualified Code(s): E66.01 - Morbid (severe) obesity due to excess calories; Z68.38 - Body mass index [BMI] 38.0-38.9, adult Plan Patient is 68-year-old female came in today for physical exam Blood pressure is well-controlled Anxiety stable GERD is stable Patient is on semaglutide injection 1 mg since April , she is says that she feels nausea 1st day that she takes injection, she is requesting Zofran script which I have sent for her She has lost 17 lb I have told her to start monitoring her blood pressure we might have to reduce her blood pressure medication as she continued to lose weight Medication list reviewed OBGYN visit is due, referral placed Colonoscopy will be in October of this year Mammogram is up-to-date Lab order placed to be done today, her potassium was low in April and she also have impaired fasting sugar. Follow-up 3 months Orders: Orders Comprehensive Met. Panel Today E78.9 - Disorder of lipoprotein metabolism, unspecified, E87.6 - Hypokalemia, F41.1 - Generalized anxiety disorder, I10 - Essential (primary) hypertension, K21.9 - Gastro-esophageal reflux disease without esophagitis, R73.03 - Prediabetes Hemoglobin A1c Today E78.9 - Disorder of lipoprotein metabolism, unspecified, E87.6 - Hypokalemia, F41.1 - Generalized anxiety disorder, I10 - Essential (primary) hypertension, K21.9 - Gastro-esophageal reflux disease without esophagitis, R73.03 - Prediabetes Medications: New ondansetron HCl 4 mg PO ONCE 30 days PRN 30 tabs 0RF nausea and vomiting R11.0 - Nausea Discontinued ondansetron HCl Discontinued Reason: Duplicate 4 mg PO ONCE 14 days PRN 3 tabs 0RF nausea and vomiting D12.6 - Benign neoplasm of colon, unspecified, R11.2 - Nausea with vomiting, unspecified Coding Level of Care Code Est Pt Level 3 (70880) Est Pt Prev Care >65y(52954) Diagnoses Encounter for general adult medical examination with abnormal findings Z00.01 Nausea R11.0 Lipid disorder E78.9 Hypertension, essential I10 Prediabetes R73.03 Anxiety, generalized F41.1 Chronic GERD K21.9 Hypokalemia E87.6 Class 2 severe obesity due to excess calories with serious comorbidity and body mass index (BMI) of 38.0 to 38.9 in adult E66.01; Z68.38 Body mass index: BMI 38.0-38.9 Obesity classification: adult class 2 (BMI 35 - 39.9) Serious obesity comorbidity presence: with serious comorbidity Additional Codes DOM-7 Assessment Billing - DOM-7 Assessment Tool: DOM-7 Assessment [id number] ([id number])
[2023-08-08 09:02] VITALS: BP 110/72; PULSE 72; O2SAT 96; BMI 34.2
== END 2023-08-08 09:19 | disposition home or self-care (01) ==
PROVIDERS: PCP Internal Medicine; Visit Provider Internal Medicine
DX: Z00.00 Encounter for general adult medical examination without abnormal findings (principal); R11.0 Nausea; E66.01 Morbid (severe) obesity due to excess calories; Z68.38 Body mass index [BMI] 38.0-38.9, adult; E78.9 Disorder of lipoprotein metabolism, unspecified; I10 Essential (primary) hypertension; R73.03 Prediabetes; F41.1 Generalized anxiety disorder; K21.9 Gastro-esophageal reflux disease without esophagitis; E87.6 Hypokalemia
CPT/HCPCS: 99213; 99397

== ENCOUNTER 2023-08-08 09:20 | Outpatient (REF) | payer BC, SELFPAY ==
[2023-08-08 10:37] LABS: Estimated Average Glucose 100 mg/dL; Hemoglobin A1c % 5.1 % (<6.0)
[2023-08-08 11:01] LABS: Alanine Aminotransferase 21 U/L (0-31); Albumin Level 4.4 g/dL (3.5-5.0); Alkaline Phosphatase 46 U/L (39-117); Anion Gap 12 (12-20); Aspartate Amino Transferase 17 U/L (5-31); Bilirubin Total 0.9 mg/dL (0.0-1.0); Blood Urea Nitrogen 12 mg/dL (9-16); Calcium 9.8 mg/dL (8.4-10.2); Carbon Dioxide 30 mmol/L (22-29); Chloride 101 mmol/L (96-108); Estimated Glomerular Filt Rate > 60; Glucose Random 105 mg/dL (60-115); Potassium 3.1 mmol/L (3.3-5.1); Sodium 140 mmol/L (135-145); Total Protein 7.3 g/dL (6.5-8.0)
== END 2023-08-08 09:21 | disposition home or self-care (01) ==
LOC: HO.HMGCLDS 09:20
PROVIDERS: PCP Internal Medicine; Visit Provider Internal Medicine
DX: I10 Essential (primary) hypertension (principal); E78.9 Disorder of lipoprotein metabolism, unspecified; R73.03 Prediabetes; F41.1 Generalized anxiety disorder; K21.9 Gastro-esophageal reflux disease without esophagitis; E87.6 Hypokalemia
CPT/HCPCS: 36415; 80053; 83036

== ENCOUNTER 2023-10-30 07:50 | Day surgery (SDC) | payer BC, SELFPAY ==
[2023-10-30 08:07] VITALS: BMI 32.3
[2023-10-30 08:32] VITALS: BP 128/64; PULSE 65; RESP 16; TEMP 36.1; O2SAT 97
--- NOTE | 2023-10-30 08:34 | P.HPSUR_ITS ---
Pre-Procedural Eval Section A - 24 Hr Update-Section A only Date of Service: 10/30/23 Section B - Complete if H&P > 30 days Chief Complaint: Nausea with vomiting,Benign neoplasm of colon, Details of Present Illness: Syncope Chronic GERD Vaginal yeast infection Anxiety, generalized Prediabetes Hypertension, essential Lipid disorder Surgical History History of carpal tunnel release History of section Hx of cholecystectomy Allergies: Allergies Allergy/AdvReac Type Severity Reaction Status Date / Time No Known Allergies Allergy Verified 10/30/23 08:19 [No Known Allergies*] Review of Systems Review of Systems Comment: Ten point ROS negative Exam Exam Comment: Gen appear: No acute distress HEENT: no icterus Chest: No overt resp distress Abd: soft, nontender, nondistended Psych: Stable affect, answering questions appropriately Neuro: A/Ox3 noted to move all extremities spontaneously Ext: no peripheral edema Plan Diagnosis/Plan: Unchanged I have reviewed the history and physical and performed a pertinent physical examination on my patient. No changes have occurred unless specified. Time Spent With Patient Time: Total time managing care of this patient today ____ minutes.
[2023-10-30] MEDS: Lactated Ringers 1,000 ML 80 ML IVCONT (08:35)
--- NOTE | 2023-10-30 08:50 | HO.ANESPROP2 ---
HPI - Anesthesia Eval Consult details Narrative: 68 yo F presenting for colonoscopy PENDING SALE TO [facility] Active Problems Active Problems: All Active Problems Encounter for routine gynecological examination (Acute) Nausea (Acute) Encounter for general adult medical examination with abnormal findings (Acute) Syncope (Acute) Pre-op examination (Acute) Nausea and vomiting (Acute) Tubular adenoma of colon (Acute) Carpal tunnel syndrome (Acute) Hiatal hernia (Acute) Colon cancer screening (Acute) Paresthesias in right hand (Acute) Obesity due to excess calories (Acute) Morbid obesity due to excess calories (Acute) Hypokalemia (Acute) Chronic GERD (Acute) Vaginal yeast infection (Acute) Anxiety, generalized (Acute) Prediabetes (Acute) Hypertension, essential (Acute) Lipid disorder (Acute) Past Medical History Medical History Syncope Chronic GERD Vaginal yeast infection Anxiety, generalized Prediabetes Hypertension, essential Lipid disorder Family History Family History Father HTN (hypertension) Myocardial infarction Colon cancer Crohn's disease Mother HTN (hypertension) Diverticulitis Brother CAD (coronary artery disease) Maternal Grandfather History of heart attack Maternal Grandmother Lung cancer Paternal Grandfather No problems noted. Paternal Grandmother No problems noted. Brother No problems noted. Brother No problems noted. Sister No problems noted. Sister No problems noted. Sister No problems noted. Son No problems noted. Daughter No problems noted. Family history of problems with anesthesia: No Surgical History Surgical History History of carpal tunnel release History of section Hx of cholecystectomy History of Problems with Anesthesia: No Social History Social History Housing: House Patient Tobacco Use Status: Never used Tobacco e-Cigarette/Vaping Use: Never Used Use of substances other than those prescribed or required for medical reasons: No Have you been hit, kicked, punched, or otherwise hurt by someone within the past year? If so, by whom?: No Are you DNR?: No Advance Directives: No Advance Directives Information Provided: Yes Recently lost weight without trying: No Nutrition Risks: No Nutritional Risk service: No Current occupational status: retired Cognitive needs: No Hearing needs: No Vision needs: No Meds Allergies Allergy/AdvReac Type Severity Reaction Status Date / Time No Known Allergies Allergy Verified 10/30/23 08:19 [No Known Allergies*] Active Medications: Current Medications Lactated Ringer's (Lr) 1,000 mls @ 80 mls/hr IVCONT .[id number] SULMA Last Admin: 10/30/23 08:35 Dose: 80 mls/hr Exam Exam Date and Time: 10/30/23 0900 Height,Weight and Vital Signs: Height 5 ft 4 in Weight 85.275 kg Last Vital Signs Temp 97.0 F 10/30/23 08:32 Pulse 65 10/30/23 08:32 Resp 16 10/30/23 08:32 BP 128/64 10/30/23 08:32 Pulse Ox 97 10/30/23 08:32 O2 Del Method Room Air 10/30/23 08:32 Airway Mallampati Class: I TM Dist: >3cm Neck ROM: Full Loose/Missing/Broken Teeth: Yes (a few missing teeth with implant posts) Heart: S1S2 Lungs: CTAB Assessment and Plan Assessment Anesthesia Assessment: Anesthesia Plan Discussed and Chart Reviewed Final Anesthetic Review Family History of Problems with Anesthesia: No History of Problems with Anesthesia: No NPO: Yes ASA Class: II Final Preanesthetic Review: No Changes in Pt Med Stat, Meds/Allgs Chart Reviewed, Consent Obtained/Reviewed and Anes Risks/Benef Reviewed Patient Risk: Low Procedure Risk: Low Anesthetic Plan Anesthetic Plan: MAC: and Agree w/ Assess. and Plan Disposition: Standard PACU
--- NOTE | 2023-10-30 09:53 | P.OPN-COLO_ITS ---
Colonoscopy Operative Note Operative Note Date of Service: 10/30/23 Narrative: Procedure: Colonoscopy Indication: Personal hx of polyp Family history of colon cancer Endoscopist: Rochelle Brown MD Anesthesia Provider: Darrick Hull CRNA Anesthesia type: MAC Instrument: Olympus [id number] Consent: Indication, risks vs benefits, and alternatives were discussed with the patient who gave written informed consent to proceed. EKG, pulse, pulse oximetry and blood pressure were monitored throughout the procedure. Please see anesthesia flowsheet. Procedure: The patient was brought to the procedure room and placed in the left lateral decubitus position. IV medications were administered by the anesthesia provider in attendance. A digital rectal exam was performed which was normal. A distal attachment cap was affixed to the tip of the colonoscope which was then inserted through the anus and advanced through the colon to the cecum at 75cm,and terminal ileum. Appendiceal orifice and ileocecal valve were identified. Mucosa was carefully examined under high definition white light as the instrument was slowly withdrawn in a retrograde panoramic fashion. Retroflexion was performed in rectum. The procedure was not difficult. There were no immediate obvious complications. The quality of the prep was BBPS: 2+3+2 = adequate Withdrawal time 7 minutes. Limitations: No limitations. Findings: Mucosa: Normal to cecum and terminal ileum. Protruding lesions: * 1 sessile polyp of size 2 mm in ascending colon. Cold snare polypectomy was performed. The polyp was completely removed and retrieved. * Medium internal hemorrhoids without stigmata of recent bleeding. Excavated lesions: * Mild sigmoid colon diverticulosis Impression: 1. Normal colon and terminal ileum mucosa 2. Total of 1 polyp removed 3. Diverticulosis 4. Internal hemorrhoids Recommendations: - Follow path results. - Repeat colonoscopy in 7-10 years if polyp is an adenoma. (Since the FDR was diagnosed at age 80s, average screening intervals apply)
[2023-10-30 09:55] VITALS: BP 95/51; PULSE 65; RESP 12; TEMP 36.6; O2SAT 98
[2023-10-30 10:10] VITALS: BP 103/54; PULSE 65; RESP 12; O2SAT 94
[2023-10-30 10:23] VITALS: BP 107/62; PULSE 62; RESP 16; TEMP 36.6; O2SAT 95
== END 2023-10-30 10:37 | disposition home or self-care (01) ==
PROVIDERS: PCP Internal Medicine; Visit Provider Internal Medicine
PROC: 0DJD8ZZ Inspection of Lower Intestinal Tract, Via Natural or Artificial Opening Endoscopic (ICD-10-PCS; CPT 45378; principal; 2023-10-30 09:10)
DX: Z12.11 Encounter for screening for malignant neoplasm of colon (principal); Z86.010 Personal history of colon polyps; Z80.0 Family history of malignant neoplasm of digestive organs; K63.5 Polyp of colon; K57.30 Diverticulosis of large intestine without perforation or abscess without bleeding; K63.89 Other specified diseases of intestine; K64.8 Other hemorrhoids; K64.4 Residual hemorrhoidal skin tags; K21.9 Gastro-esophageal reflux disease without esophagitis; I10 Essential (primary) hypertension; E78.00 Pure hypercholesterolemia, unspecified; R73.03 Prediabetes; F41.1 Generalized anxiety disorder; Z79.899 Other long term (current) drug therapy; Z90.49 Acquired absence of other specified parts of digestive tract
CPT/HCPCS: 45385; 88305; J2704

== ENCOUNTER → 2023-10-30 07:50 | Outpatient (BNV) | payer BC, SELFPAY | PROVIDERS: PCP Internal Medicine; Visit Provider Internal Medicine | DX: Z12.11 Encounter for screening for malignant neoplasm of colon (principal); Z86.010 Personal history of colon polyps; Z80.0 Family history of malignant neoplasm of digestive organs; K63.5 Polyp of colon; K57.90 Diverticulosis of intestine, part unspecified, without perforation or abscess without bleeding | CPT/HCPCS: 45385 ==

== ENCOUNTER 2023-11-10 14:07 | Outpatient (REF) | payer BC, SELFPAY ==
[2023-11-10 16:13] LABS: Hematocrit 40.3 % (37.0-47.0); Hemoglobin 13.6 g/dl (12.0-16.0); Mean Corpuscular HGB Conc 33.7 g/dl (31.0-35.0); Mean Corpuscular Hemoglobin 29.5 pg (27.0-33.0); Mean Corpuscular Volume 87.4 fL (80.0-98.0); Platelet Count 303 X10*3/uL (160-400); Red Blood Count 4.61 X10*6/uL (4.20-5.50); Red Cell Distribution Width 14.7 % (11.0-16.0); White Blood Count 7.4 X10*3/uL (4.8-10.8)
[2023-11-10 16:53] LABS: Alanine Aminotransferase 16 U/L (0-31); Alkaline Phosphatase 47 U/L (39-117); Anion Gap 11 (12-20); Aspartate Amino Transferase 14 U/L (5-31); Bilirubin Total 0.9 mg/dL (0.0-1.0); Blood Urea Nitrogen 13 mg/dL (9-16); Calcium 9.3 mg/dL (8.4-10.2); Carbon Dioxide 30 mmol/L (22-29); Chloride 102 mmol/L (96-108); Estimated Glomerular Filt Rate > 60; Glucose Random 95 mg/dL (60-115); Potassium 2.8 mmol/L (3.3-5.1); Sodium 140 mmol/L (135-145); Total Protein 6.7 g/dL (6.5-8.0)
== END 2023-11-10 14:08 | disposition home or self-care (01) ==
LOC: HO.HMGCLDS 14:07
PROVIDERS: PCP Internal Medicine; Visit Provider Internal Medicine
DX: R19.7 Diarrhea, unspecified (principal)
CPT/HCPCS: 36415; 80053; 85027

== ENCOUNTER 2023-11-13 17:02 | Outpatient (REF) | payer BC, SELFPAY ==
[2023-11-14 11:08] LABS: Adenovirus F 40/41 Not Detected (Not Detect.); Astrovirus Not Detected (Not Detect.); Campylobacter Not Detected (Not Detect.); Cryptosporidium Not Detected (Not Detect.); Cyclospora cayetanensis Not Detected (Not Detect.); E. coli EAEC Not Detected (Not Detect.); E. coli EPEC Not Detected (Not Detect.); E. coli ETEC Not Detected (Not Detect.); E. coli STEC Not Detected (Not Detect.); Entamoeba histolytica Not Detected (Not Detect.); Giardia lamblia Not Detected (Not Detect.); Norovirus GI/GII Not Detected (Not Detect.); Plesiomonas shigelloides Not Detected (Not Detect.); Rotavirus A Not Detected (Not Detect.); Salmonella Not Detected (Not Detect.); Sapovirus Not Detected (Not Detect.); Shigella sp./EIEC Not Detected (Not Detect.); Vibrio Not Detected (Not Detect.); Vibrio Cholerae Not Detected (Not Detect.)
[2023-11-14 12:50] LABS: Yersinia enterocolitica Detected (Not Detect.)
== END 2023-11-13 17:03 | disposition home or self-care (01) ==
LOC: HO.LNP 17:02
PROVIDERS: Visit Provider Internal Medicine
DX: R19.7 Diarrhea, unspecified (principal)
CPT/HCPCS: 87507

== ENCOUNTER 2023-11-28 08:55 | Outpatient (AMB) | payer BC, SELFPAY ==
--- NOTE | 2023-11-28 08:58 | MHC.PC.OV ---
Vital Signs 11/28/23 08:59 Height 5 ft 4 in Weight 191 lb 6 oz BMI 32.8 BP 104/68 Blood Pressure Location Rt brachial Position Sitting Pulse 66 Pulse Source Pulse Oximeter Pulse Oximetry (%) 96 Oxygen Delivery Method Room Air Intake Visit Reasons: 3M F/u~ Allergies No Known Allergies [No Known Allergies*] Allergy (Verified 11/28/23 09:02) Medication List - Last Reconciled 11/28/23 by Mis Nichols MD escitalopram oxalate 5 mg PO DAILY ondansetron HCl 4 mg PO ONCE PRN 30 days pantoprazole 40 mg PO DAILY 90 days semaglutide (weight loss) 1 mg (0.5 mL) subcut QWEEK 90 days simvastatin 20 mg PO DAILY 90 days Tobacco use date assessed: 11/28/23 Fall risk assessment: No Falls in past year Last assessed Fall Risk: 11/28/23 Dental Screening Dental Screen Date: 11/28/23 Did you have a dental visit in the last 12 months?: Yes Did you have a dental problem in the last 6 months where you did not have access to dental care?: No Was dental information given to patient?: Patient has dentist HPI 3M F/u~ HPI Details Patient is 68-year-old female came in for her three-month follow-up appointment Patient has been on semaglutide injections since February of this year She is on 1 mg dose, tolerating medication She is being monitored by [facility] weight loss program And recently had some labs done through them including LDL which was 96 Her potassium has been running low, mid of October it was 2.8 that was checked by Gastroenterology Patient was told to start taking extra banana but no supplement was given She was told to repeat labs today which she will do it Her blood pressure has been running low, I am stopping chlorthalidone which probably causing hypokalemia anyway. She will continue with the atenolol 50 mg GERD is stable She has stopped taking Lexapro, patient says that she no longer feel anxious Lipid disorder: She may cut down simvastatin 20 mg to 10 mg now Taking Zofran as needed Patient will return in 3 months for follow-up appointment [facility] Medical History Syncope Chronic GERD Vaginal yeast infection Anxiety, generalized Prediabetes Hypertension, essential Lipid disorder Surgical History History of carpal tunnel release History of section Hx of cholecystectomy Family History Father HTN (hypertension) Myocardial infarction Colon cancer Crohn's disease Mother HTN (hypertension) Diverticulitis Brother CAD (coronary artery disease) Maternal Grandfather History of heart attack Maternal Grandmother Lung cancer Paternal Grandfather No problems noted. Paternal Grandmother No problems noted. Brother No problems noted. Brother No problems noted. Sister No problems noted. Sister No problems noted. Sister No problems noted. Son No problems noted. Daughter No problems noted. Social History Housing: House Patient Tobacco Use Status: Never used Tobacco e-Cigarette/Vaping Use: Never Used service: No Current occupational status: retired Cognitive needs: No Hearing needs: No Vision needs: No Questionnaire PHQ-9 Over the last 2 weeks, how often have you been bothered by any of the following problems? 1. Little interest or pleasure in doing things: not at all 2. Feeling down, depressed, or hopeless: not at all 3. Trouble falling or staying asleep, or sleeping too much: not at all 4. Feeling tired or having little energy: not at all 5. Poor appetite or overeating: not at all 6. Feeling bad about yourself - or that you are a failure or have let yourself or your family down: not at all 7. Trouble concentrating on things, such as reading the newspaper or watching television: not at all 8. Moving or speaking so slowly that other people could have noticed. Or the opposite - being so fidgety or restless that you have been moving around a lot more than usual: not at all 9. Thoughts that you would be better off or of hurting yourself in some way: not at all Total score: 0 Depression Screening Interpretation: Negative Depression Screening Done: Yes 87980 - PHQ-9 Billing: Yes Source: Developed by Drs. Bud Dan, Saida Odom, Bal Tanner and colleagues, with an educational betzy from [employer]. Thrive Questionnaire Date Thrive assessed: 11/28/23 I am a: Patient What is your living situation today?: I have a steady place to live Within the past 12 months, did the food you bought not last and you didn't have the money to get more?: Never true Within the past 12 months, did you worry whether your food would run out before you got money to buy more?: Never true Do you have trouble paying for medicines?: No Do you have trouble getting transportation to medical appointments?: No Do you have trouble paying your heating and electricity bill?: No Do you have trouble taking care of your child, family member or friend?: No Do you have trouble with day-to-day activities such as bathing, preparing meals, shopping, managing finances, etc.?: No Are you currently unemployed and looking for a job?: No Are you interested in more education?: No Please select the resources that you would like help with: None Currently or been in a relationship where the following occur: No concerns reported THRIVE Score: 0 AUDIT C Alcohol Use Questionnaire (AUDIT-C) 1. How often do you have a drink containing alcohol?: Never 3. How often do you have six or more drinks on one occasion?: Never Total Score: 0 Score Reviewed/Action Taken: Yes DOM-7 AMB Questionnaire DOM-7 Date DOM - 7 assessed: 11/28/23 Feeling nervous, anxious, or on edge: 0 = Not at all Not being able to stop or control worryin = Not at all Worrying too much about different things: 0 = Not at all Trouble relaxin = Not at all Being so restless that it is hard to sit still: 0 = Not at all Becoming easily annoyed or irritable: 0 = Not at all Feeling afraid as if something awful might happen: 0 = Not at all Total DOM-7 score (0-4 normal; 5-9 mild; 10-14 moderate; 15-21 severe): 0 Source: Developed by Drs. Bud Dan, Saida Odom, Bal Tanner and colleagues, with an educational betzy from [employer]. DOM-7 Assessment Billing DOM-7 Assessment Tool: DOM-7 Assessment 86554 Review of Systems Const Denies chills and Denies fever(s) ENT Denies epistaxis and Denies nasal discharge Card Denies chest pain Resp Denies chest congestion, Denies cough and Denies hemoptysis GI Denies diarrhea and Denies nausea Skin/Breast Denies rash Neuro Reports no additional complaints Psych Reports no additional complaints Endo Reports no additional complaints Physical exam (Primary Care) Vital Signs: Last Vital Signs Pulse 66 11/28/23 08:59 BP 104/68 11/28/23 08:59 Pulse Ox 96 11/28/23 08:59 Oxygen Delivery Method Room Air 11/28/23 08:59 BMI result Body Mass Index 32.8 Tobacco/Smoking Status: Tobacco use Status Tobacco use date assessed 11/28/23 11/28/23 09:05 Patient Tobacco Use Status Never used Tobacco 11/28/23 09:05 e-Cigarette/Vaping Use Never Used 11/28/23 09:05 PHQ-9: PHQ-9 Score PHQ-9: Total score 0 11/28/23 09:36 Depression Screening Interpretation: Negative Thrive Assessment: Date of Thrive Assessment Date Thrive assessed 11/28/23 11/28/23 09:05 Currently or been in a relationship where the following occur: No concerns reported Const General: cooperative, comfortable and no acute distress Orientation/consciousness: patient oriented x3 HENMT Head: Yes normocephalic Eyes General: appearance normal, both eyes and all related structures Neck Neck: Yes supple Resp Effort & Inspection: normal respiratory effort, no cough and no stridor Cardio Rhythm: regular rhythm Heart sounds: S1 normal heart sound present and S2 normal heart sound present Skin General skin exam: turgor normal Neuro General: patient oriented x3, tone normal and moves all extremities Extrem Right lower extremity: no edema Left lower extremity: no edema Coding Level of Care Code Est Pt Level 4 (90010) Diagnoses Class 2 severe obesity due to excess calories with serious comorbidity and body mass index (BMI) of 38.0 to 38.9 in adult E66.01; Z68.38 Body mass index: BMI 38.0-38.9 Obesity classification: adult class 2 (BMI 35 - 39.9) Serious obesity comorbidity presence: with serious comorbidity Lipid disorder E78.9 Hypertension, essential I10 Prediabetes R73.03 Anxiety, generalized F41.1 Chronic GERD K21.9 Hypokalemia E87.6 Additional Codes DOM-7 Assessment Billing - DOM-7 Assessment Tool: DOM-7 Assessment [id number] ([id number]) Assessment & Plan Assessment & Plan (1) Obesity due to excess calories: Code(s): E66.09 - Other obesity due to excess calories Category: Medical Qualifiers: Body mass index: BMI 38.0-38.9 Obesity classification: adult class 2 (BMI 35 - 39.9) Serious obesity comorbidity presence: with serious comorbidity Qualified Code(s): E66.01 - Morbid (severe) obesity due to excess calories; Z68.38 - Body mass index [BMI] 38.0-38.9, adult (2) Lipid disorder: Code(s): E78.9 - Disorder of lipoprotein metabolism, unspecified Category: Medical (3) Hypertension, essential: Code(s): I10 - Essential (primary) hypertension Category: Medical (4) Prediabetes: Code(s): R73.03 - Prediabetes Category: Medical (5) Anxiety, generalized: Code(s): F41.1 - Generalized anxiety disorder Category: Medical (6) Chronic GERD: Code(s): K21.9 - Gastro-esophageal reflux disease without esophagitis Category: Medical (7) Hypokalemia: Code(s): E87.6 - Hypokalemia Category: Medical Plan Patient is 68-year-old female came in for her three-month follow-up appointment Patient has been on semaglutide injections since February of this year She is on 1 mg dose, tolerating medication She is being monitored by [facility] weight loss program And recently had some labs done through them including LDL which was 96 Her potassium has been running low, mid of October it was 2.8 that was checked by Gastroenterology Patient was told to start taking extra banana but no supplement was given She was told to repeat labs today which she will do it Her blood pressure has been running low, I am stopping chlorthalidone which probably causing hypokalemia anyway. She will continue with the atenolol 50 mg GERD is stable She has stopped taking Lexapro, patient says that she no longer feel anxious Lipid disorder: She may cut down simvastatin 20 mg to 10 mg now Taking Zofran as needed Patient will return in 3 months for follow-up appointment Orders: Orders TSH reflex Free T4 Today E66.01 - Morbid (severe) obesity due to excess calories, Z68.38 - Body mass index [BMI] 38.0-38.9, adult Amylase Today E66.01 - Morbid (severe) obesity due to excess calories, Z68.38 - Body mass index [BMI] 38.0-38.9, adult Medications: New atenolol 50 mg PO DAILY 90 tabs 0RF Discontinued atenolol-chlorthalidone 50-25 mg Discontinued Reason: Doctor's Order 1 tab PO DAILY 90 caps 0RF escitalopram oxalate Discontinued Reason: Doctor's Order 5 mg PO DAILY 90 caps 0RF
[2023-11-28 08:59] VITALS: BP 104/68; PULSE 66; O2SAT 96; BMI 32.8
== END 2023-11-28 09:37 | disposition home or self-care (01) ==
PROVIDERS: PCP Internal Medicine; Visit Provider Internal Medicine
DX: E66.01 Morbid (severe) obesity due to excess calories (principal); Z68.38 Body mass index [BMI] 38.0-38.9, adult; E78.9 Disorder of lipoprotein metabolism, unspecified; I10 Essential (primary) hypertension; R73.03 Prediabetes; F41.1 Generalized anxiety disorder; K21.9 Gastro-esophageal reflux disease without esophagitis; E87.6 Hypokalemia

== ENCOUNTER → 2023-11-28 08:55 | Outpatient (BNVA) | payer BC, SELFPAY | PROVIDERS: PCP Internal Medicine; Visit Provider Internal Medicine | DX: E66.01 Morbid (severe) obesity due to excess calories (principal); Z68.38 Body mass index [BMI] 38.0-38.9, adult; E78.9 Disorder of lipoprotein metabolism, unspecified; I10 Essential (primary) hypertension; R73.03 Prediabetes; F41.1 Generalized anxiety disorder; K21.9 Gastro-esophageal reflux disease without esophagitis; E87.6 Hypokalemia; Z79.899 Other long term (current) drug therapy | CPT/HCPCS: 96127 ==

== ENCOUNTER 2023-11-28 09:37 | Outpatient (REF) | payer BC, SELFPAY ==
[2023-11-28 13:52] LABS: Amylase 235 U/L (28-100); Anion Gap 11 (12-20); Blood Urea Nitrogen 16 mg/dL (9-16); Calcium 9.2 mg/dL (8.4-10.2); Carbon Dioxide 31 mmol/L (22-29); Chloride 102 mmol/L (96-108); Estimated Glomerular Filt Rate > 60; Glucose Random 87 mg/dL (60-115); Potassium 3.2 mmol/L (3.3-5.1); Sodium 141 mmol/L (135-145)
[2023-11-28 14:37] LABS: TSH reflex Free T4 1.03 uIU/mL (0.32-4.0)
== END 2023-11-28 09:38 | disposition home or self-care (01) ==
LOC: HO.HMGCLDS 09:37
PROVIDERS: PCP Internal Medicine; Referring Provider Internal Medicine; Visit Provider Internal Medicine
DX: E66.01 Morbid (severe) obesity due to excess calories (principal); Z68.38 Body mass index [BMI] 38.0-38.9, adult; E87.6 Hypokalemia; R19.7 Diarrhea, unspecified
CPT/HCPCS: 36415; 80048; 82150; 84443

== ENCOUNTER 2023-12-22 10:45 | Outpatient (REF) | payer BC, SELFPAY ==
[2023-12-22 14:24] LABS: Alanine Aminotransferase 16 U/L (0-31); Albumin Level 3.9 g/dL (3.5-5.0); Alkaline Phosphatase 45 U/L (39-117); Anion Gap 10 (12-20); Aspartate Amino Transferase 18 U/L (5-31); Bilirubin Total 0.4 mg/dL (0.0-1.0); Blood Urea Nitrogen 18 mg/dL (9-16); Calcium 8.8 mg/dL (8.4-10.2); Carbon Dioxide 27 mmol/L (22-29); Chloride 107 mmol/L (96-108); Estimated Glomerular Filt Rate > 60; Glucose Random 89 mg/dL (60-115); Lipase 212 U/L (8-78); Potassium 4.3 mmol/L (3.3-5.1); Sodium 140 mmol/L (135-145); Total Protein 6.4 g/dL (6.5-8.0)
[2023-12-22 14:34] LABS: TSH reflex Free T4 1.35 uIU/mL (0.32-4.0)
[2023-12-22 14:44] LABS: Amylase 154 U/L (28-100)
== END 2023-12-22 10:46 | disposition home or self-care (01) ==
LOC: HO.HMGCLDS 10:45
PROVIDERS: PCP Internal Medicine; Visit Provider Internal Medicine
DX: E87.6 Hypokalemia (principal); R74.8 Abnormal levels of other serum enzymes; R11.0 Nausea
CPT/HCPCS: 36415; 80053; 82150; 83690; 84443

== ENCOUNTER 2023-12-24 10:06 | Outpatient (REF) | payer BC, SELFPAY ==
[2023-12-24 13:13] LABS: Appearance Urine Clear; Color Urine Yellow; Glucose Urine UA Negative (Negative); Leukocyte Esterase Urine Negative (Negative); Nitrite Urine Negative (Negative); PH 6.5 (5.0-9.0); Urine Blood Negative (Negative); Urine Ketones Negative (Negative); Urine Protein Negative (Neg-Trace)
== END 2023-12-24 10:07 | disposition home or self-care (01) ==
LOC: HO.HMGCLDS 10:06
PROVIDERS: PCP Internal Medicine; Visit Provider Internal Medicine
DX: R35.0 Frequency of micturition (principal)
CPT/HCPCS: 81003

== ENCOUNTER 2024-03-04 09:28 | Outpatient (REF) | payer BC, SELFPAY ==
[2024-03-04 13:47] LABS: Alanine Aminotransferase 17 U/L (0-31); Albumin Level 3.8 g/dL (3.5-5.0); Alkaline Phosphatase 49 U/L (39-117); Amylase 155 U/L (28-100); Anion Gap 9 (12-20); Aspartate Amino Transferase 17 U/L (5-31); Bilirubin Total 0.4 mg/dL (0.0-1.0); Blood Urea Nitrogen 13 mg/dL (9-16); Calcium 8.6 mg/dL (8.4-10.2); Carbon Dioxide 29 mmol/L (22-29); Chloride 109 mmol/L (96-108); Estimated Glomerular Filt Rate > 60; Glucose Random 98 mg/dL (60-115); Lipase 194 U/L (8-78); Potassium 4.3 mmol/L (3.3-5.1); Sodium 143 mmol/L (135-145); Total Protein 6.5 g/dL (6.5-8.0)
== END 2024-03-04 09:29 | disposition home or self-care (01) ==
LOC: HO.HMGCLDS 09:28
PROVIDERS: PCP Internal Medicine; Visit Provider Internal Medicine
DX: R74.8 Abnormal levels of other serum enzymes (principal); I10 Essential (primary) hypertension; E78.9 Disorder of lipoprotein metabolism, unspecified
CPT/HCPCS: 36415; 80053; 82150; 83690

== ENCOUNTER 2024-03-17 08:07 | Outpatient (REF) | payer BC, SELFPAY ==
[2024-03-17 11:59] LABS: Leukocytes Stool Qualitative NEGATIVE (NEGATIVE)
[2024-03-17 13:08] LABS: CDiff Gene PCR POSITIVE (Negative)
[2024-03-17 16:19] LABS: CDiff Toxin Positive (Negative)
[2024-03-17 16:23] LABS: CDIFF Internal ctrl Dots and bkg OK (V)
== END 2024-03-17 08:08 | disposition home or self-care (01) ==
LOC: HO.LNP 08:07
PROVIDERS: Visit Provider Internal Medicine
DX: R19.7 Diarrhea, unspecified (principal)
CPT/HCPCS: 87324; 87493; 89055

== ENCOUNTER 2024-03-18 07:36 | Outpatient (REF) | payer BC, SELFPAY | END 2024-03-18 07:37 | disposition home or self-care (01) | LOC: HO.LNP 07:36 | PROVIDERS: Visit Provider Internal Medicine | DX: R19.7 Diarrhea, unspecified (principal) | CPT/HCPCS: 87015; 87207; 87329 ==

== ENCOUNTER 2024-03-23 10:07 | Outpatient (AMB) | payer BC, SELFPAY ==
[2024-03-23 10:20] VITALS: BP 126/78; PULSE 72; O2SAT 97; BMI 33.7
--- NOTE | 2024-03-23 10:20 | MHC.PC.OV ---
Vital Signs 03/23/24 10:20 Height 5 ft 4 in Weight 196 lb 2 oz BMI 33.7 BP 126/78 Blood Pressure Location Lt brachial Position Sitting Pulse 72 Pulse Source Pulse Oximeter Pulse Oximetry (%) 97 Oxygen Delivery Method Room Air Intake Visit Reasons: 3 months F/U Allergies No Known Allergies [No Known Allergies*] Allergy (Verified 03/23/24 10:22) Medication List - Last Reconciled 03/23/24 by Mis Nichols MD atenolol 50 mg PO DAILY escitalopram oxalate 5 mg PO DAILY ondansetron HCl 4 mg PO ONCE PRN 30 days pantoprazole 40 mg PO DAILY 90 days semaglutide (weight loss) 1.7 mg (0.75 mL) subcut QWEEK 90 days simvastatin 20 mg PO DAILY 90 days vancomycin 125 mg PO QID 10 days Tobacco use date assessed: 03/23/24 Fall risk assessment: No Falls in past year Last assessed Fall Risk: 03/23/24 Dental Screening Dental Screen Date: 03/23/24 Did you have a dental visit in the last 12 months?: Yes Did you have a dental problem in the last 6 months where you did not have access to dental care?: No Was dental information given to patient?: Patient has dentist HPI 3 months F/U HPI Details Follow-up appointment The patient is a 69-year-old female presenting with a follow-up for current C diff diarrhea, medication management, and concerns regarding weight management. - currently managing an infection with Clostridioides difficile. With vancomycin oral and is feeling much better - Observed elevated pancreatic enzymes; currently higher than previous levels. - Discontinued semaglutide due to concern of elevated pancreatic enzymes. Exploring weight management alternatives. Semaglutide discontinued and Zapbound sent - Engaged in a weight management program through [facility] for insurance coverage of weight management medications. - History of hypertension and hyperlipidemia under treatment with atenolol and simvastatin, respectively. Medications - Atenolol 50 mg for hypertension - Escitalopram (specific dose not stated) - Pantoprazole (specific dose not stated) - Simvastatin (specific dose not stated) for hyperlipidemia - Vancomycin for Clostridioides difficile infection - Ondansetron (as needed) Problem List - Infection with Clostridioides difficile (C. difficile) - Elevated pancreatic enzymes (amylase and lipase) - Adverse reaction to weight management medication - Obesity - Hypertension - Hyperlipidemia Diagnostic results - Labs: - Amylase: 155 (previously 154) - Lipase: 194 (previously 212) Patient Instructions - Continue current antibiotic treatment for the Clostridioides difficile infection. - Monitor amylase and lipase levels; repeat tests in approximately four weeks. - Resume use of weight management medication only after full recovery from infection and clearance of antibiotics. Changed to zepbound - Reduce atenolol dosage by half, monitoring blood pressure to remain under 140 mmHg. - Continue with weight management program through [facility] for insurance coverage adherence. Report weight and progress regularly. Review of Systems - Gastrointestinal: Reports previous bacterial infection, current infection with Clostridioides difficile. - Metabolic/Endocrine: Reports elevated pancreatic enzyme levels, discontinued weight management medication due to concerns. - General: Weight discrepancy, plans to adjust medications as needed. neurological: No headaches no dizziness ear nose throat: No sore throat no hearing difficulty no ear pain cardiovascular: No syncope, no chest pain, no palpitations endocrine: No polyuria polydipsia no heat intolerance genitourinary: No dysuria skin: No new complaints Physical Exam general: No acute distress HEENT: No acute findings neck: Supple respiratory system: Able to talk in full sentences, no audible wheeze no stridor cardiovascular: S1-S2 gastrointestinal: No pain extremities: No new findings HUC OB: Alert awake oriented x3 motor sensory intact skin: Normal turgor PFSH Medical History Syncope Chronic GERD Vaginal yeast infection Anxiety, generalized Prediabetes Hypertension, essential Lipid disorder Surgical History History of carpal tunnel release History of section Hx of cholecystectomy Family History Father HTN (hypertension) Myocardial infarction Colon cancer Crohn's disease Mother HTN (hypertension) Diverticulitis Brother CAD (coronary artery disease) Maternal Grandfather History of heart attack Maternal Grandmother Lung cancer Paternal Grandfather No problems noted. Paternal Grandmother No problems noted. Brother No problems noted. Brother No problems noted. Sister No problems noted. Sister No problems noted. Sister No problems noted. Son No problems noted. Daughter No problems noted. Social History Housing: House Patient Tobacco Use Status: Never used Tobacco e-Cigarette/Vaping Use: Never Used service: No Current occupational status: retired Cognitive needs: No Hearing needs: No Vision needs: No Questionnaire PHQ-9 Over the last 2 weeks, how often have you been bothered by any of the following problems? 1. Little interest or pleasure in doing things: not at all 2. Feeling down, depressed, or hopeless: not at all 3. Trouble falling or staying asleep, or sleeping too much: not at all 4. Feeling tired or having little energy: not at all 5. Poor appetite or overeating: not at all 6. Feeling bad about yourself - or that you are a failure or have let yourself or your family down: not at all 7. Trouble concentrating on things, such as reading the newspaper or watching television: not at all 8. Moving or speaking so slowly that other people could have noticed. Or the opposite - being so fidgety or restless that you have been moving around a lot more than usual: not at all 9. Thoughts that you would be better off or of hurting yourself in some way: not at all Total score: 0 Depression Screening Interpretation: Negative Depression Screening Done: Yes 56217 - PHQ-9 Billing: Yes Source: Developed by Drs. Bud Dan, Saida Odom, Bal Tanner and colleagues, with an educational betzy from [email or web address]. Thrive Questionnaire Date Thrive assessed: 03/23/24 I am a: Patient What is your living situation today?: I have a steady place to live Within the past 12 months, did the food you bought not last and you didn't have the money to get more?: Never true Within the past 12 months, did you worry whether your food would run out before you got money to buy more?: Never true Do you have trouble paying for medicines?: No Do you have trouble getting transportation to medical appointments?: No Do you have trouble paying your heating and electricity bill?: No Do you have trouble taking care of your child, family member or friend?: No Do you have trouble with day-to-day activities such as bathing, preparing meals, shopping, managing finances, etc.?: No Are you currently unemployed and looking for a job?: No Are you interested in more education?: No Please select the resources that you would like help with: None Currently or been in a relationship where the following occur: No concerns reported THRIVE Score: 0 AUDIT C Alcohol Use Questionnaire (AUDIT-C) 1. How often do you have a drink containing alcohol?: Never 3. How often do you have six or more drinks on one occasion?: Never Total Score: 0 Score Reviewed/Action Taken: Yes DOM-7 AMB Questionnaire DOM-7 Date DOM - 7 assessed: 03/23/24 Feeling nervous, anxious, or on edge: 0 = Not at all Not being able to stop or control worryin = Not at all Worrying too much about different things: 0 = Not at all Trouble relaxin = Not at all Being so restless that it is hard to sit still: 0 = Not at all Becoming easily annoyed or irritable: 0 = Not at all Feeling afraid as if something awful might happen: 0 = Not at all Total DOM-7 score (0-4 normal; 5-9 mild; 10-14 moderate; 15-21 severe): 0 Source: Developed by Drs. Bud Dan, Saida Odom, Bal Tanner and colleagues, with an educational betzy from [email or web address]. DOM-7 Assessment Billing DOM-7 Assessment Tool: DOM-7 Assessment 43808 Physical exam (Primary Care) Vital Signs: Last Vital Signs Pulse 72 03/23/24 10:20 BP 126/78 03/23/24 10:20 Pulse Ox 97 03/23/24 10:20 Oxygen Delivery Method Room Air 03/23/24 10:20 BMI result Body Mass Index 33.7 Tobacco/Smoking Status: Tobacco use Status Tobacco use date assessed 03/23/24 03/23/24 10:23 Patient Tobacco Use Status Never used Tobacco 03/23/24 10:23 e-Cigarette/Vaping Use Never Used 03/23/24 10:23 PHQ-9: PHQ-9 Score PHQ-9: Total score 0 03/23/24 10:40 Depression Screening Interpretation: Negative Thrive Assessment: Date of Thrive Assessment Date Thrive assessed 03/23/24 03/23/24 10:23 Currently or been in a relationship where the following occur: No concerns reported Coding Level of Care Code Est Pt Level 4 (54006) Diagnoses C. difficile diarrhea A04.72 Hypertension, essential I10 Lipid disorder E78.9 Prediabetes R73.03 Anxiety, generalized F41.1 Chronic GERD K21.9 Class 2 severe obesity due to excess calories with serious comorbidity and body mass index (BMI) of 38.0 to 38.9 in adult E66.01; Z68.38 Body mass index: BMI 38.0-38.9 Obesity classification: adult class 2 (BMI 35 - 39.9) Serious obesity comorbidity presence: with serious comorbidity Elevated amylase R74.8 Additional Codes DOM-7 Assessment Billing - DOM-7 Assessment Tool: DOM-7 Assessment 90704 ([id number]) PHQ-9 - 06054 - PHQ-9 Billing: Yes ([id number]) Assessment & Plan Assessment & Plan (1) C. difficile diarrhea: Code(s): A04.72 - Enterocolitis due to Clostridium difficile, not specified as recurrent Category: Medical (2) Hypertension, essential: Code(s): I10 - Essential (primary) hypertension Category: Medical (3) Lipid disorder: Code(s): E78.9 - Disorder of lipoprotein metabolism, unspecified Category: Medical (4) Prediabetes: Code(s): R73.03 - Prediabetes Category: Medical (5) Anxiety, generalized: Code(s): F41.1 - Generalized anxiety disorder Category: Medical (6) Chronic GERD: Code(s): K21.9 - Gastro-esophageal reflux disease without esophagitis Category: Medical (7) Obesity due to excess calories: Code(s): E66.09 - Other obesity due to excess calories Category: Medical Qualifiers: Body mass index: BMI 38.0-38.9 Obesity classification: adult class 2 (BMI 35 - 39.9) Serious obesity comorbidity presence: with serious comorbidity Qualified Code(s): E66.01 - Morbid (severe) obesity due to excess calories; Z68.38 - Body mass index [BMI] 38.0-38.9, adult (8) Elevated amylase: Code(s): R74.8 - Abnormal levels of other serum enzymes Category: Medical Plan Follow-up appointment The patient is a 69-year-old female presenting with a follow-up for current C diff diarrhea, medication management, and concerns regarding weight management. - currently managing an infection with Clostridioides difficile. With vancomycin oral and is feeling much better - Observed elevated pancreatic enzymes; currently higher than previous levels. - Discontinued semaglutide due to concern of elevated pancreatic enzymes. Exploring weight management alternatives. Semaglutide discontinued and Zapbound sent - Engaged in a weight management program through [facility] for insurance coverage of weight management medications. - History of hypertension and hyperlipidemia under treatment with atenolol and simvastatin, respectively. Medications - Atenolol 50 mg for hypertension - Escitalopram (specific dose not stated) - Pantoprazole (specific dose not stated) - Simvastatin (specific dose not stated) for hyperlipidemia - Vancomycin for Clostridioides difficile infection - Ondansetron (as needed) Problem List - Infection with Clostridioides difficile (C. difficile) - Elevated pancreatic enzymes (amylase and lipase) - Adverse reaction to weight management medication - Obesity - Hypertension - Hyperlipidemia Diagnostic results - Labs: - Amylase: 155 (previously 154) - Lipase: 194 (previously 212) Patient Instructions - Continue current antibiotic treatment for the Clostridioides difficile infection. - Monitor amylase and lipase levels; repeat tests in approximately four weeks. - Resume use of weight management medication only after full recovery from infection and clearance of antibiotics. Changed to zepbound - Reduce atenolol dosage by half, monitoring blood pressure to remain under 140 mmHg. - Continue with weight management program through [facility] for insurance coverage adherence. Report weight and progress regularly. Orders: Orders Amylase 4 Weeks A04.72 - Enterocolitis due to Clostridium difficile, not specified as recurrent, E66.01 - Morbid (severe) obesity due to excess calories, E78.9 - Disorder of lipoprotein metabolism, unspecified, F41.1 - Generalized anxiety disorder, I10 - Essential (primary) hypertension, K21.9 - Gastro-esophageal reflux disease without esophagitis, R73.03 - Prediabetes, R74.8 - Abnormal levels of other serum enzymes, Z68.38 - Body mass index [BMI] 38.0-38.9, adult Lipase 4 Weeks A04.72 - Enterocolitis due to Clostridium difficile, not specified as recurrent, E66.01 - Morbid (severe) obesity due to excess calories, E78.9 - Disorder of lipoprotein metabolism, unspecified, F41.1 - Generalized anxiety disorder, I10 - Essential (primary) hypertension, K21.9 - Gastro-esophageal reflux disease without esophagitis, R73.03 - Prediabetes, R74.8 - Abnormal levels of other serum enzymes, Z68.38 - Body mass index [BMI] 38.0-38.9, adult LDL Cholesterol Direct 4 Weeks A04.72 - Enterocolitis due to Clostridium difficile, not specified as recurrent, E66.01 - Morbid (severe) obesity due to excess calories, E78.9 - Disorder of lipoprotein metabolism, unspecified, F41.1 - Generalized anxiety disorder, I10 - Essential (primary) hypertension, K21.9 - Gastro-esophageal reflux disease without esophagitis, R73.03 - Prediabetes, R74.8 - Abnormal levels of other serum enzymes, Z68.38 - Body mass index [BMI] 38.0-38.9, adult Complete Blood Count Auto Diff 4 Weeks A04.72 - Enterocolitis due to Clostridium difficile, not specified as recurrent, E66.01 - Morbid (severe) obesity due to excess calories, E78.9 - Disorder of lipoprotein metabolism, unspecified, F41.1 - Generalized anxiety disorder, I10 - Essential (primary) hypertension, K21.9 - Gastro-esophageal reflux disease without esophagitis, R73.03 - Prediabetes, R74.8 - Abnormal levels of other serum enzymes, Z68.38 - Body mass index [BMI] 38.0-38.9, adult Comprehensive Met. Panel 4 Weeks A04.72 - Enterocolitis due to Clostridium difficile, not specified as recurrent, E66.01 - Morbid (severe) obesity due to excess calories, E78.9 - Disorder of lipoprotein metabolism, unspecified, F41.1 - Generalized anxiety disorder, I10 - Essential (primary) hypertension, K21.9 - Gastro-esophageal reflux disease without esophagitis, R73.03 - Prediabetes, R74.8 - Abnormal levels of other serum enzymes, Z68.38 - Body mass index [BMI] 38.0-38.9, adult Medications: New tirzepatide (weight loss) (Zepbound) for 4 weeks 2.5 mg (0.5 mL) subcut QWEEK 30 days 2.5 mL 0RF Discontinued semaglutide (weight loss) administer weeks 1 through 4 of therapy Discontinued Reason: Doctor's Order 1.7 mg (0.75 mL) subcut QWEEK 90 days 9.75 mL 2RF
== END 2024-03-23 11:07 | disposition home or self-care (01) ==
PROVIDERS: PCP Internal Medicine; Visit Provider Internal Medicine
DX: A04.72 Enterocolitis due to Clostridium difficile, not specified as recurrent (principal); I10 Essential (primary) hypertension; E78.9 Disorder of lipoprotein metabolism, unspecified; R73.03 Prediabetes; F41.1 Generalized anxiety disorder; K21.9 Gastro-esophageal reflux disease without esophagitis; E66.01 Morbid (severe) obesity due to excess calories; Z68.38 Body mass index [BMI] 38.0-38.9, adult; R74.8 Abnormal levels of other serum enzymes

== ENCOUNTER → 2024-03-23 10:07 | Outpatient (BNVA) | payer BC, SELFPAY | PROVIDERS: PCP Internal Medicine; Visit Provider Internal Medicine | DX: A04.72 Enterocolitis due to Clostridium difficile, not specified as recurrent (principal); I10 Essential (primary) hypertension; E78.9 Disorder of lipoprotein metabolism, unspecified; R73.03 Prediabetes; F41.1 Generalized anxiety disorder; K21.9 Gastro-esophageal reflux disease without esophagitis; E66.01 Morbid (severe) obesity due to excess calories; Z68.38 Body mass index [BMI] 38.0-38.9, adult; R74.8 Abnormal levels of other serum enzymes; Z79.899 Other long term (current) drug therapy | CPT/HCPCS: 96127 ==

== ENCOUNTER 2024-03-30 16:57 | Outpatient (REF) | payer BC, SELFPAY ==
[2024-03-31 01:06] LABS: CDiff Gene PCR NEGATIVE (Negative)
== END 2024-03-30 16:58 | disposition home or self-care (01) ==
LOC: HO.LNP 16:57
PROVIDERS: Visit Provider Internal Medicine
DX: A04.72 Enterocolitis due to Clostridium difficile, not specified as recurrent (principal)
CPT/HCPCS: 87493

== ENCOUNTER 2024-05-18 12:45 | Outpatient (REF) | payer BC, SELFPAY ==
[2024-05-18 18:06] LABS: CDiff Gene PCR POSITIVE (Negative)
[2024-05-18 19:16] LABS: CDiff Toxin Negative (Negative)
[2024-05-18 19:17] LABS: CDIFF Internal ctrl Dots and bkg OK (V)
[2024-05-18 19:24] LABS: Leukocytes Stool Qualitative FEW: < 2/OIF (NEGATIVE)
== END 2024-05-18 12:46 | disposition home or self-care (01) ==
LOC: HO.LNP 12:45
PROVIDERS: Visit Provider Internal Medicine
DX: R19.7 Diarrhea, unspecified (principal)
CPT/HCPCS: 87015; 87177; 87207; 87209; 87324; 87329; 87493; 89055

== ENCOUNTER 2024-05-31 08:20 | Outpatient (REF) | payer BC, SELFPAY ==
[2024-05-31 10:28] LABS: MANUAL DIFF FLAG NO
[2024-05-31 10:48] LABS: Basophils Absolute Auto 0.1 X10*3/uL (0.0-0.2); Eosinophils Absolute Auto 0.2 X10*3/uL (0.0-0.4); Eosinophils Percent Auto 4.3 % (0-4); Hematocrit 41.8 % (37.0-47.0); Hemoglobin 13.4 g/dl (12.0-16.0); Imm Gran Abs Auto 0.02 X10*3/uL (0.00-0.03); Imm Gran Pct Auto 0.4 % (0.0-0.4); Lymphocytes Absolute Auto 1.4 X10*3/uL (1.2-4.9); Lymphocytes Percent Auto 29.4 % (20-40); Mean Corpuscular HGB Conc 32.1 g/dl (31.0-35.0); Mean Corpuscular Hemoglobin 29.5 pg (27.0-33.0); Mean Corpuscular Volume 91.9 fL (80.0-98.0); Mean Platelet Volume 10.6 fL (9.4-12.3); Monocytes Absolute Auto 0.4 X10*3/uL (0.1-1.2); Monocytes Percent Auto 7.9 % (2-11); Neutrophils Absolute Auto 2.8 x10*3/uL (2.0-8.3); Platelet Count 231 X10*3/uL (160-400); Red Blood Count 4.55 X10*6/uL (4.20-5.50); Red Cell Distribution Width 14.4 % (11.0-16.0); White Blood Count 4.8 X10*3/uL (4.8-10.8)
[2024-05-31 11:20] LABS: Alanine Aminotransferase 22 U/L (0-31); Albumin Level 3.9 g/dL (3.5-5.0); Alkaline Phosphatase 57 U/L (39-117); Amylase 160 U/L (28-100); Anion Gap 11 (12-20); Aspartate Amino Transferase 21 U/L (5-31); Bilirubin Total 0.4 mg/dL (0.0-1.0); Blood Urea Nitrogen 13 mg/dL (9-16); Calcium 8.9 mg/dL (8.4-10.2); Carbon Dioxide 27 mmol/L (22-29); Chloride 109 mmol/L (96-108); Estimated Glomerular Filt Rate > 60; Glucose Random 102 mg/dL (60-115); Lipase 189 U/L (8-78); Potassium 4.3 mmol/L (3.3-5.1); Sodium 143 mmol/L (135-145); Total Protein 6.4 g/dL (6.5-8.0)
[2024-06-01 15:18] LABS: LDL Cholesterol Direct 151 mg/dL (<100)
== END 2024-05-31 08:21 | disposition home or self-care (01) ==
LOC: HO.HMGCLDS 08:20
PROVIDERS: PCP Internal Medicine; Visit Provider Internal Medicine
DX: I10 Essential (primary) hypertension (principal); E78.9 Disorder of lipoprotein metabolism, unspecified; R73.03 Prediabetes; F41.1 Generalized anxiety disorder; K21.9 Gastro-esophageal reflux disease without esophagitis; E66.01 Morbid (severe) obesity due to excess calories; Z68.38 Body mass index [BMI] 38.0-38.9, adult; R74.8 Abnormal levels of other serum enzymes; A04.72 Enterocolitis due to Clostridium difficile, not specified as recurrent
CPT/HCPCS: 36415; 80053; 82150; 83690; 83721; 85025

== ENCOUNTER 2024-06-02 12:38 | Outpatient (REF) | payer BC, SELFPAY | END 2024-06-02 12:39 | disposition home or self-care (01) | LOC: HO.LNP 12:38 | PROVIDERS: Visit Provider Internal Medicine | DX: R19.7 Diarrhea, unspecified (principal) | CPT/HCPCS: 87015; 87177; 87207; 87209; 87329 ==

== ENCOUNTER 2024-06-24 07:11 | Outpatient (REF) | payer BC, SELFPAY ==
[2024-06-24 11:33] LABS: CDiff Gene PCR NEGATIVE (Negative)
== END 2024-06-24 07:12 | disposition home or self-care (01) ==
LOC: HO.HMGCLNP 07:11
PROVIDERS: PCP Internal Medicine; Visit Provider Internal Medicine
DX: A04.72 Enterocolitis due to Clostridium difficile, not specified as recurrent (principal)
CPT/HCPCS: 87493

== ENCOUNTER 2024-06-28 10:11 | Outpatient (REF) | payer BC, SELFPAY ==
[2024-06-28 13:45] LABS: Lipase 38 U/L (8-78)
[2024-06-28 14:07] LABS: Amylase 77 U/L (28-100)
== END 2024-06-28 10:12 | disposition home or self-care (01) ==
LOC: HO.HMGCLDS 10:11
PROVIDERS: PCP Internal Medicine; Visit Provider Internal Medicine
DX: R74.8 Abnormal levels of other serum enzymes (principal)
CPT/HCPCS: 36415; 82150; 83690

== ENCOUNTER 2024-07-28 11:22 | Outpatient (REF) | payer BC, SELFPAY ==
[2024-07-28 14:23] LABS: C Reactive Protein 0.15 mg/dL (< or = 0.50)
[2024-07-29 11:58] LABS: Class Almond 0; Class Brazil Nut 0; Class Cashew 0; Class Codfish 0; Class Cow's Milk 0; Class Egg white 0; Class Hazelnut 0; Class Macadamia Nut 0; Class Peanut 0; Class Salmon 0; Class Scallop 0; Class Sesame Seed 0; Class Shrimp 0; Class Soybean 0; Class Tuna 0; Class Walnut 0; Class Wheat 0; F001-IgE Egg White <0.10 kU/L; F002-IgE Milk <0.10 kU/L; F003-IgE Codfish <0.10 kU/L; F004-IgE Wheat <0.10 kU/L; F010-IgE Sesame Seed <0.10 kU/L; F013-IgE Peanut <0.10 kU/L; F014-IgE Soybean <0.10 kU/L; F017-IgE Hazelnut (Filbert) <0.10 kU/L; F018-IgE Brazil Nut <0.10 kU/L; F020-IgE Almond <0.10 kU/L; F024-IgE Shrimp <0.10 kU/L; F040-IgE Tuna <0.10 kU/L; F041 IgE Salmon <0.10 kU/L; F202-IgE Cashew Nut <0.10 kU/L; F256-IgE Walnut <0.10 kU/L; F338-IgE Scallop <0.10 kU/L; F345-IgE Macadmia Nut <0.10 kU/L
== END 2024-07-28 11:23 | disposition home or self-care (01) ==
LOC: HO.LAB 11:22
PROVIDERS: PCP Internal Medicine; Visit Provider Nurse Practitioner
DX: K21.9 Gastro-esophageal reflux disease without esophagitis (principal); R19.7 Diarrhea, unspecified; Z91.09 Other allergy status, other than to drugs and biological substances
CPT/HCPCS: 36415; 82785; 86003; 86140

== ENCOUNTER 2024-07-28 11:22 | Outpatient (AMB) | payer BC, SELFPAY ==
--- NOTE | 2024-07-28 11:27 | MHC.OFFVIS ---
Vital Signs 07/28/24 11:28 Height 5 ft 4 in Weight 208 lb BMI 35.7 BP 140/66 H Blood Pressure Location Rt brachial Position Sitting Pulse 58 Pulse Source Pulse Oximeter Pulse Oximetry (%) 96 Oxygen Delivery Method Room Air Intake Visit Reasons: Pancreatic levels high Intake Note: Established patient for new eval of elevated lab values (pancreatic). NATHAN 2023. CC; C.O. fecal abn , pt did not feel comfortable disclosing gross details to the MA. Possible constipation + diarrhea intermittently without evidence of hemorrhoids per pt. Pt denies any additional sx or concerns. Pt reports recent hx of multiple c. diff infections, most recently as of 1 mos ago which was treated with vanco. 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 PMX Morbid obesity Hypertension High cholesterol Pre diabetes Carpal tunnel syndrome Right hand paresthesias Generalized anxiety disorder GERD * SURGICAL HISTORY Carpal tunnel release The section Cholecystectomy * ALLERGIES: NKDA * [employer] LABS: Laboratory Tests 03/04/24 05/31/24 06/28/24 09:45 08:25 10:18 Amylase 155 H 160 H 77 Lipase 194 H 189 H 38 Laboratory Tests 05/18/24 06/24/24 03:45 07:30 C. difficile Tox B Gene POSITIVE A* NEGATIVE C. difficile Toxin A&B Negative TODAY'S VISIT Apparently, the pancreatic enzymes normalized after stopping GLP-1. The pt is reporting bowel issues s/p tx c diff. She is reporting that she is having frequent stooling and it tends to be not formed but of a shredded nature. She is also moving her bowels much more copiously than she had in the past. Fortunately she is not having any severe pain or abdominal cramping nor she having a lot of gastric presentation such as nausea and vomiting. Her last C diff study was negative as was the toxin which is encouraging. She is taking a probiotic but she is not eating much fiber at this time. I have recommended that she start a fiber supplement because this really aids the colon in calming the irritability and and healing itself once the acute phase has been addressed. She is also concerned because her father had severe Crohn's disease. While this seems unlikely it does have a bimodal onset, I am less concerned because her colonoscopy was about a year ago and there were no signs of inflammatory bowel disease at that time. However we will add a CRP and a fecal calprotectin to be thorough along with a RAST panel. Return office visit in 4 weeks [facility] Medical History (Updated 07/28/24 @ 12:10 by FRENCH Amos) Nausea C. difficile diarrhea Elevated amylase Colon cancer screening Nausea and vomiting Pre-op examination Encounter for routine gynecological examination Encounter for general adult medical examination with abnormal findings Syncope Chronic GERD Vaginal yeast infection Anxiety, generalized Prediabetes Hypertension, essential Lipid disorder Surgical History History of carpal tunnel release History of section Hx of cholecystectomy Family History Father HTN (hypertension) Myocardial infarction Colon cancer Crohn's disease Mother HTN (hypertension) Diverticulitis Brother CAD (coronary artery disease) Maternal Grandfather History of heart attack Maternal Grandmother Lung cancer Paternal Grandfather No problems noted. Paternal Grandmother No problems noted. Brother No problems noted. Brother No problems noted. Sister No problems noted. Sister No problems noted. Sister No problems noted. Son No problems noted. Daughter No problems noted. Social History Housing: House Patient Tobacco Use Status: Never used Tobacco e-Cigarette/Vaping Use: Never Used service: No Current occupational status: retired Cognitive needs: No Hearing needs: No Vision needs: No Review of Systems Const Denies fatigue, Denies fever(s), Denies night sweats, Denies poor appetite and Reports weight loss ENT Reports Normal hearing present, Denies dental pain, Denies dysphagia, Denies hearing loss, Denies mouth pain, Denies odynophagia, Denies throat swelling, Denies tongue swelling and Reports other (Dentition adequate) Card Reports no additional complaints Resp Reports no additional complaints GI Details: Reports abdominal pain, Denies melena, Denies bloating, Denies hematochezia, Denies constipation, Reports GI cramping, Denies dysphagia, Denies excessive flatus, Denies early satiety, Denies heartburn, Reports diarrhea, Denies nausea, Denies odynophagia, Denies vomiting and Denies hematemesis Skin/Breast Denies pruritus, Denies lesions, Denies rash and Denies jaundice Neuro Reports Normal hearing present and Denies Abnormal speech present Endo Denies fatigue Aller/Immun Denies throat swelling and Denies tongue swelling Physical Exam Vital Signs: Last Vital Signs Pulse 58 07/28/24 11:28 BP 140/66 H 07/28/24 11:28 Pulse Ox 96 07/28/24 11:28 Oxygen Delivery Method Room Air 07/28/24 11:28 BMI result Body Mass Index 35.7 Const General: cooperative, no acute distress, well developed and well groomed Nutritional Appearance: well nourished and obese Orientation/consciousness: oriented to person, oriented to place and oriented to time Limitations: No language barrier HEENT Head: Yes normocephalic and Yes atraumatic Eyes General: appearance normal, both eyes and all related structures Pupils: Equal, round and reactive pupils present Neck Neck: Yes normal visual inspection and Yes no lymphadenopathy Thyroid: Thyroid normal Resp Effort & Inspection: normal respiratory effort and able to speak in complete sentences Auscultation: clear to auscultation bilaterally Cardio Rate: regular rate Rhythm: regular rhythm Heart sounds: Normal, physiologic split S2 sound present Peripheral pulses: radial pulses present and posterior tibial pulses present GI Inspection: No distended, No Abdominal panniculus present and Yes obesity Palpation (GI): Soft to palpation, nontender, no guarding, not rigid and No hepatosplenomegaly present Percussion: Yes normal to percussion Auscultation: normal bowel sounds Rectal Exam - Female: deferred Skin General skin exam: no rashes or lesions noted, turgor normal, skin not dry, no jaundice, No spider nevi and no striae Rashes: no rashes Nails: normal Neuro General: oriented to person, oriented to place and oriented to time Cranial nerves: Yes Equal, round and reactive pupils present and Yes Normal hearing present Speech: No Abnormal speech present Extrem General: Yes normal to inspection, No clubbing, No cyanosis and No edema Psych Appearance: grossly normal and well kempt Mental Status: mental status grossly normal Speech and movement: Normal speech and movement present Affect: normal affect Attitude: cooperative Thought process: Normal thought process present and not confabulating Thought content: Normal thought content present Insight: Good insight present (Psych) Judgement: Good judgement present (Psych) Assessment & Plan Assessment & Plan (1) Diarrhea: Code(s): R19.7 - Diarrhea, unspecified Category: Medical Plan Apparently, the pancreatic enzymes normalized after stopping GLP-1. The pt is reporting bowel issues s/p tx c diff. She is reporting that she is having frequent stooling and it tends to be not formed but of a shredded nature. She is also moving her bowels much more copiously than she had in the past. Fortunately she is not having any severe pain or abdominal cramping nor she having a lot of gastric presentation such as nausea and vomiting. Her last C diff study was negative as was the toxin which is encouraging. She is taking a probiotic but she is not eating much fiber at this time. I have recommended that she start a fiber supplement because this really aids the colon in calming the irritability and and healing itself once the acute phase has been addressed. She is also concerned because her father had severe Crohn's disease. While this seems unlikely it does have a bimodal onset, I am less concerned because her colonoscopy was about a year ago and there were no signs of inflammatory bowel disease at that time. However we will add a CRP and a fecal calprotectin to be thorough along with a RAST panel. Return office visit in 4 weeks Orders: Orders Calprotectin, Fecal Today R19.7 - Diarrhea, unspecified C Reactive Protein Today R19.7 - Diarrhea, unspecified Rast Allergen Today R19.7 - Diarrhea, unspecified Coding Level of Care Code Est Pt Level 4 (91959) Diagnoses Diarrhea R19.7 Time Spent (min) 36
[2024-07-28 11:28] VITALS: BP 140/66; PULSE 58; O2SAT 96; BMI 35.7
== END 2024-07-28 12:16 | disposition home or self-care (01) ==
LOC: HO.HGI 11:22
PROVIDERS: PCP Internal Medicine; Visit Provider Nurse Practitioner
DX: R19.7 Diarrhea, unspecified (principal)
CPT/HCPCS: 99214

== ENCOUNTER 2024-07-29 10:21 | Outpatient (REF) | payer BC, SELFPAY ==
[2024-07-29 12:11] LABS: CDiff Gene PCR NEGATIVE (Negative)
[2024-08-04 19:04] LABS: Calprotectin, Fecal 23 mcg/g
== END 2024-07-29 10:22 | disposition home or self-care (01) ==
LOC: HO.LNP 10:21
PROVIDERS: Nurse Practitioner; Visit Provider Internal Medicine
DX: R19.7 Diarrhea, unspecified (principal); A04.72 Enterocolitis due to Clostridium difficile, not specified as recurrent
CPT/HCPCS: 83993; 87493

== ENCOUNTER 2024-09-08 09:35 | Outpatient (AMB) | payer BC, SELFPAY ==
--- NOTE | 2024-09-08 09:37 | A.OFFPC_ITS ---
Vital Signs 09/08/24 09:38 Height 5 ft 4 in Weight 220 lb BMI 37.8 BMI Reason not done Patient refused/unable BP 122/78 Blood Pressure Location Lt brachial Position Sitting Pulse 74 Pulse Source Pulse Oximeter Pulse Oximetry (%) 94 Oxygen Delivery Method Room Air Intake Visit Reasons: Annual PE Repair Table Operator Required: No Accompanied by: Self / Same As Patient Allergies No Known Allergies (No Known Allergies*) Allergy (Verified 09/08/24 09:38) Medication List - Last Reconciled 09/08/24 by Mis Nichols MD atenolol 50 mg PO DAILY escitalopram oxalate 5 mg PO DAILY ondansetron HCl 4 mg PO ONCE PRN 30 days pantoprazole 40 mg PO DAILY 90 days simvastatin 20 mg PO DAILY 90 days Tobacco use date assessed: 03/23/24 Fall risk assessment: No Falls in past year Last assessed Fall Risk: 09/08/24 Dental Screening Dental Screen Date: 03/23/24 HPI Annual PE HPI Details PE apt - The patient is a 69-year-old female pr esenting for Physical exam and also for follow-up concerning weight management - History of weight gain with a self-rep orted increase to 220 lbs, attributed to stress eating and a past medical event involving multiple bouts of C. difficile infection. - Previous use of semaglutide injections for weight management was discontinued due to elevated liver enzymes. The patient reports enzymes returned to normal in June. - Reports interest in switching from brandi aglutide injections to oral tablets following advice from a peer and confirmation of insurance coverage. Medical History: - Anxiety, under management with Lexapro 5 mg. - Gastroesophageal Reflux Disease (GERD) , managed with pantoprazole 40 mg. - Hyperlipidemia, adjusting simvastatin dosage from half to a full pill due to recent cholesterol levels increase. - Past Clostridioides difficile infectio n resolved. Social History: - No current employment. - Reports gaining weight, previously ach ieving weight loss through semaglutide. - Engages in regular exercise by walking approximately 3 miles daily, but acknowledges the need for additional physical activity. - Reports stress eating contributing to weight gain. - Advised on joining a gym to enhance ph ysical activity routine. Family History: - Father had Crohn's Disease. - No family history of shingles or simil ar conditions. Health Maintenance - Discussed need for pneumonia and shing les vaccinations, as patient is over 65 years old. - Mammogram due; patient unclear when la st conducted, possibly skipping the last year's appointment. - Labs performed: prior liver enzyme emma vation noted, now within normal ranges post-discontinuation of semaglutide injections. - New prescription of semaglutide oral t ablets to be administered, with subsequent lab tests to monitor impact on liver enzymes. - need to book obgyn apt - Colon screening up todate thru Gastro Medications - Atenolol 50 mg for blood pressure arthur gement - Lexapro 5 mg for anxiety - Pantoprazole 40 mg for GERD - Simvastatin 20 mg for hyperlipidemia Employment - Not currently employed. Diagnostic results - Labs: CBC within normal limits, Metabo lic profile showed normal kidney function, normal random sugar levels, stable liver enzymes, elevated liver enzymes observed in the past with semaglutide, subsequently normalized. Patient Instructions - Make an appointment to receive vaccina tions for pneumonia and shingles. - Switch to semaglutide oral tablets and have follow-up labs in 30 days to check liver enzyme levels. - Maintain a balanced diet and implement regular physical exercises, considering gym membership. - continue meds f/u in 4 wks for starting oral semaglutide, finish labs before apt Review of Systems - General: No fever no chills - Neurological: No headaches no dizzin ess - Ear nose throat: No sore throat no hearing difficulty no ear pain - Cardiovascular: No syncope, no chest pain, no palpitations - Gastrointestinal: No nausea vomiting or diarrhea - Endocrine: No polyuria polydipsia no heat intolerance - Genitourinary: No dysuria - Skin: No new complaints Physical Exam General: Cooperative, healthy appearing, comfortable, no acute distress Orientation: Patient oriented x3 Head: Normal to inspection Ears: Within normal limit visually, no infection noted Nose: Normal external nose present Face and sinus: Normal facial exam, birthmark noted over lip Eyes: Appearance normal, extraocular movement intact pupils reactive Neck: Normal visual inspection and supple Respiratory: Normal respiratory effort and able to speak in complete sentences. Clear to auscultation, no stridor Cardiovascular: S1 and S2 RRR Breast exam declined GI: Normal to inspection. Soft to palpation and nontender Skin: Turgor normal, no acute findings Neuro: Patient oriented x3, motor sensory intact, balance intact, tandem pass Extremities: Normal to inspection [facility] Medical History (Updated 09/08/24 @ 11:35 by Mis Nichols MD) Encounter for general adult medical examination with abnormal findings Nausea C. difficile diarrhea Elevated amylase Colon cancer screening Nausea and vomiting Pre-op examination Encounter for routine gynecological examination Syncope Chronic GERD Vaginal yeast infection Anxiety, generalized Prediabetes Hypertension, essential Lipid disorder Surgical History History of carpal tunnel release History of section Hx of cholecystectomy Family History Father HTN (hypertension) Myocardial infarction Colon cancer Crohn's disease Mother HTN (hypertension) Diverticulitis Brother CAD (coronary artery disease) Maternal Grandfather History of heart attack Maternal Grandmother Lung cancer Paternal Grandfather No problems noted. Paternal Grandmother No problems noted. Brother No problems noted. Brother No problems noted. Sister No problems noted. Sister No problems noted. Sister No problems noted. Son No problems noted. Daughter No problems noted. Social History Housing: House Patient Tobacco Use Status: Never used Tobacco e-Cigarette/Vaping Use: Never Used service: No Current occupational status: retired Cognitive needs: No Hearing needs: No Vision needs: No Questionnaire PHQ-9 Over the last 2 weeks, how often have you been bothered by any of the following problems? 1. Little interest or pleasure in doing things: not at all 2. Feeling down, depressed, or hopeless: not at all 3. Trouble falling or staying asleep, or sleeping too much: not at all 4. Feeling tired or having little energy: not at all 5. Poor appetite or overeating: several days 6. Feeling bad about yourself - or that you are a failure or have let yourself or your family down: not at all 7. Trouble concentrating on things, such as reading the newspaper or watching television: not at all 8. Moving or speaking so slowly that other people could have noticed. Or the opposite - being so fidgety or restless that you have been moving around a lot more than usual: not at all 9. Thoughts that you would be better off or of hurting yourself in some way: not at all Total score: 1 Depression Screening Interpretation: Negative Depression Screening Done: Yes 01521 - PHQ-9 Billing: Yes Source: Developed by Drs. Bud Dan, Saida Odom, Bal Tanner and colleagues, with an educational betzy from [employer]. Thrive Questionnaire Date Thrive assessed: 09/08/24 I am a: Patient What is your living situation today?: I have a steady place to live Within the past 12 months, did the food you bought not last and you didn't have the money to get more?: Never true Within the past 12 months, did you worry whether your food would run out before you got money to buy more?: Never true Do you have trouble paying for medicines?: No Do you have trouble getting transportation to medical appointments?: No Do you have trouble paying your heating and electricity bill?: No Do you have trouble taking care of your child, family member or friend?: No Do you have trouble with day-to-day activities such as bathing, preparing meals, shopping, managing finances, etc.?: No Are you currently unemployed and looking for a job?: No Are you interested in more education?: No Please select the resources that you would like help with: None Currently or been in a relationship where the following occur: No concerns reported THRIVE Score: 0 AUDIT C Alcohol Use Questionnaire (AUDIT-C) 1. How often do you have a drink containing alcohol?: Never 3. How often do you have six or more drinks on one occasion?: Never Total Score: 0 Score Reviewed/Action Taken: Yes DOM-7 AMB Questionnaire DOM-7 Date DOM - 7 assessed: 09/08/24 Feeling nervous, anxious, or on edge: 0 = Not at all Not being able to stop or control worryin = Not at all Worrying too much about different things: 0 = Not at all Trouble relaxin = Not at all Being so restless that it is hard to sit still: 0 = Not at all Becoming easily annoyed or irritable: 0 = Not at all Feeling afraid as if something awful might happen: 0 = Not at all Total DOM-7 score (0-4 normal; 5-9 mild; 10-14 moderate; 15-21 severe): 0 Source: Developed by Saida Leong Kurt Kroenke and colleagues, with an educational betzy from [employer]. DOM-7 Assessment Billing DOM-7 Assessment Tool: DOM-7 Assessment 16410 Physical exam (Primary Care) Vital Signs: Last Vital Signs Pulse 74 09/08/24 09:38 BP 122/78 09/08/24 09:38 Pulse Ox 94 09/08/24 09:38 Oxygen Delivery Method Room Air 09/08/24 09:38 BMI result Body Mass Index 37.8 Tobacco/Smoking Status: Tobacco use Status Tobacco use date assessed 03/23/24 09/08/24 09:38 Patient Tobacco Use Status Never used Tobacco 09/08/24 09:38 e-Cigarette/Vaping Use Never Used 09/08/24 09:38 PHQ-9: PHQ-9 Score PHQ-9: Total score 1 09/08/24 11:35 Depression Screening Interpretation: Negative Thrive Assessment: Date of Thrive Assessment Date Thrive assessed 09/08/24 09/08/24 09:41 Currently or been in a relationship where the following occur: No concerns reported Coding Level of Care Code Est Pt Level 3 (65284) Est Pt Prev Care >65y(47645) Diagnoses Encounter for general adult medical examination with abnormal findings Z00.01 Lipid disorder E78.9 Hypertension, essential I10 Prediabetes R73.03 Anxiety, generalized F41.1 Class 2 severe obesity due to excess calories with serious comorbidity and body mass index (BMI) of 38.0 to 38.9 in adult E66.01; Z68.38 Body mass index: BMI 38.0-38.9 Obesity classification: adult class 2 (BMI 35 - 39.9) Serious obesity comorbidity presence: with serious comorbidity Additional Codes DOM-7 Assessment Billing - DOM-7 Assessment Tool: DOM-7 Assessment 28134 ([id number]) PHQ-9 - 56485 - PHQ-9 Billing: Yes ([id number]) Assessment & Plan Assessment & Plan (1) Encounter for general adult medical examination with abnormal findings: Code(s): Z00.01 - Encounter for general adult medical examination with abnormal findings Category: Medical (2) Lipid disorder: Code(s): E78.9 - Disorder of lipoprotein metabolism, unspecified Category: Medical (3) Hypertension, essential: Code(s): I10 - Essential (primary) hypertension Category: Medical (4) Prediabetes: Code(s): R73.03 - Prediabetes Category: Medical (5) Anxiety, generalized: Code(s): F41.1 - Generalized anxiety disorder Category: Medical (6) Obesity due to excess calories: Code(s): E66.09 - Other obesity due to excess calories Category: Medical Qualifiers: Body mass index: BMI 38.0-38.9 Obesity classification: adult class 2 (BMI 35 - 39.9) Serious obesity comorbidity presence: with serious comorbidity Qualified Code(s): E66.01 - Morbid (severe) obesity due to excess calories; Z68.38 - Body mass index [BMI] 38.0-38.9, adult Plan PE apt - The patient is a 69-year-old female presenting for Physical exam and also for follow-up concerning weight management - History of weight gain with a self-reported increase to 220 lbs, attributed to stress eating and a past medical event involving multiple bouts of C. difficile infection. - Previous use of semaglutide injections for weight management was discontinued due to elevated liver enzymes. The patient reports enzymes returned to normal in June. - Reports interest in switching from semaglutide injections to oral tablets following advice from a peer and confirmation of insurance coverage. Medical History: - Anxiety, under management with Lexapro 5 mg. - Gastroesophageal Reflux Disease (GERD), managed with pantoprazole 40 mg. - Hyperlipidemia, adjusting simvastatin dosage from half to a full pill due to recent cholesterol levels increase. - Past Clostridioides difficile infection resolved. Social History: - No current employment. - Reports gaining weight, previously achieving weight loss through semaglutide. - Engages in regular exercise by walking approximately 3 miles daily, but acknowledges the need for additional physical activity. - Reports stress eating contributing to weight gain. - Advised on joining a gym to enhance physical activity routine. Family History: - Father had Crohn's Disease. - No family history of shingles or similar conditions. Health Maintenance - Discussed need for pneumonia and shingles vaccinations, as patient is over 65 years old. - Mammogram due; patient unclear when last conducted, possibly skipping the last year's appointment. - Labs performed: prior liver enzyme elevation noted, now within normal ranges post-discontinuation of semaglutide injections. - New prescription of semaglutide oral tablets to be administered, with subsequent lab tests to monitor impact on liver enzymes. - need to book obgyn apt - Colon screening up todate thru Gastro Medications - Atenolol 50 mg for blood pressure management - Lexapro 5 mg for anxiety - Pantoprazole 40 mg for GERD - Simvastatin 20 mg for hyperlipidemia Employment - Not currently employed. Diagnostic results - Labs: CBC within normal limits, Metabolic profile showed normal kidney function, normal random sugar levels, stable liver enzymes, elevated liver enzymes observed in the past with semaglutide, subsequently normalized. Patient Instructions - Make an appointment to receive vaccinations for pneumonia and shingles. - Switch to semaglutide oral tablets and have follow-up labs in 30 days to check liver enzyme levels. - Maintain a balanced diet and implement regular physical exercises, considering gym membership. - continue meds f/u in 4 wks for starting oral semaglutide, finish labs before apt Orders: Orders Lipid Panel 4 Weeks E66.01 - Morbid (severe) obesity due to excess calories, E78.9 - Disorder of lipoprotein metabolism, unspecified, F41.1 - Generalized anxiety disorder, I10 - Essential (primary) hypertension, R73.03 - Prediabetes, Z68.38 - Body mass index [BMI] 38.0-38.9, adult Amylase 4 Weeks E66.01 - Morbid (severe) obesity due to excess calories, E78.9 - Disorder of lipoprotein metabolism, unspecified, F41.1 - Generalized anxiety disorder, I10 - Essential (primary) hypertension, R73.03 - Prediabetes, Z68.38 - Body mass index [BMI] 38.0-38.9, adult Complete Blood Count Auto Diff 4 Weeks E66.01 - Morbid (severe) obesity due to excess calories, E78.9 - Disorder of lipoprotein metabolism, unspecified, F41.1 - Generalized anxiety disorder, I10 - Essential (primary) hypertension, R73.03 - Prediabetes, Z68.38 - Body mass index [BMI] 38.0-38.9, adult Comprehensive [place]. Panel Fast 4 Weeks E66.01 - Morbid (severe) obesity due to excess calories, E78.9 - Disorder of lipoprotein metabolism, unspecified, F41.1 - Generalized anxiety disorder, I10 - Essential (primary) hypertension, R73.03 - Prediabetes, Z68.38 - Body mass index [BMI] 38.0-38.9, adult Lipase 4 Weeks E66.01 - Morbid (severe) obesity due to excess calories, E78.9 - Disorder of lipoprotein metabolism, unspecified, F41.1 - Generalized anxiety disorder, I10 - Essential (primary) hypertension, R73.03 - Prediabetes, Z68.38 - Body mass index [BMI] 38.0-38.9, adult Medications: New semaglutide 3 mg PO DAILY 30 tabs 0RF 30 days
[2024-09-08 09:38] VITALS: BP 122/78; PULSE 74; O2SAT 94; BMI 37.8
--- OUTSIDE RECORDS SUMMARY | 2024-09-08 10:07 | XMS_ITS | Patient Health Record ---
Author Organization [facility] Address [address] [place] [address] Care Team Providers Care Forensic Locksmith Name Role Phone Courtney العراقي, Liset Primary Care Provider Bud Summers Unavailable [phone] Reason For Referral No Information Medications Medication SIG (Take, Route, Frequency, Duration) Notes Start Date End Date Status Pantoprazole Sodium 40 MG 1 tablet Orally BID for 30 Active Problems Problem Type SNOMED Code ICD Code Onset Dates Problem Status W/U Status Risk Notes Problem 788164012 Encounter for screening for malignant neoplasm of colon (Z12.11) Active confirmed Problem 765329722 History of adenomatous polyp of colon (Z86.010) Active confirmed Problem Screening for malignant neoplasm of rectum (633092435) Encounter for screening for malignant neoplasm of rectum (Z12.12) Active confirmed Problem 037282353 Gastroesophageal reflux disease without esophagitis (K21.9) Active confirmed Problem 571480807 Family history o f colon cancer (Z80.0) Active confirmed Problem 79472309 Hiatal hernia (K44.9) Active confirmed Plan Of Treatment Future Test Test Name Order Date UPPER GI ENDOSCOPY 12/28/2015 COLONOSCOPY 12/28/2015 Insurance Providers Payer Name Payer Address Payer Phone Subscriber Number Group Number Insured Name Patient Relationship to Insured Coverage Start Date Coverage End Date [facility] [address] [place], [place] [phone] [id number] LORNA JANENE Self - patient is the insured Medical (General) History Medical History History ICD Code Screening Colonoscopy--2009- -1 small tubular adenoma, hyperplastic polyp, diverticulosis, internal hemorrhoids GERD--small to moderate-size d Hiatal hernia--EGD in 08/2009--no esophagitis nor Voss's esophagus Denies [place],DM,CVA,Lung disease,renal dise ase Surgical History Surgery Date(Month/Year) Cholecystectomy Left breast surgery--benign
== END 2024-09-08 10:03 | disposition home or self-care (01) ==
LOC: HO.HMCC 09:36
PROVIDERS: PCP Internal Medicine; Visit Provider Internal Medicine
DX: Z00.01 Encounter for general adult medical examination with abnormal findings (principal); I10 Essential (primary) hypertension; E66.01 Morbid (severe) obesity due to excess calories; Z68.38 Body mass index [BMI] 38.0-38.9, adult; E78.9 Disorder of lipoprotein metabolism, unspecified; R73.03 Prediabetes; F41.1 Generalized anxiety disorder

== ENCOUNTER → 2024-09-08 09:35 | Outpatient (BNVA) | payer BC, SELFPAY | PROVIDERS: PCP Internal Medicine; Visit Provider Internal Medicine | DX: Z00.01 Encounter for general adult medical examination with abnormal findings (principal); E78.9 Disorder of lipoprotein metabolism, unspecified; I10 Essential (primary) hypertension; R73.03 Prediabetes; F41.1 Generalized anxiety disorder; E66.01 Morbid (severe) obesity due to excess calories; Z68.38 Body mass index [BMI] 38.0-38.9, adult | CPT/HCPCS: 96127 ==

== ENCOUNTER 2024-10-13 13:23 | Outpatient (REF) | payer BC, SELFPAY ==
--- NOTE | ~2024-10-13 | XR_ITS ---
EXAMINATION: XR ANKLE, RIGHT CLINICAL INFORMATION: M25.571 - Pain in right ankle and joints of right foot COMPARISON: None available. TECHNIQUE: AP, lateral, and mortise views of the right ankle. FINDINGS: No fracture, dislocation, or suspicious bone lesion. No malalignment. The mortise is intact. The talar dome is normal. The subtalar joints appear normal. There are moderate-sized plantar and dorsal calcaneal spurs. There is no soft tissue abnormality. XR/XR ankle RT min 3V IMPRESSION: No acute findings of the right ankle. Electronically signed by: Luke Mireles MD 10/13/2024 03:11 PM EDT
--- NOTE | ~2024-10-13 | XR_ITS ---
EXAMINATION: XR FOOT, RIGHT CLINICAL INFORMATION: M25.571 - Pain in right ankle and joints of right foot COMPARISON: December 18, 2018 calcaneal x-ray TECHNIQUE: AP, lateral, and oblique views of the right foot. FINDINGS: No acute abnormality seen. There are moderate enthesophytes on calcaneus at the plantar fascial and Achilles attachments. There are no other abnormalities. XR/XR foot RT 2V IMPRESSION: Nonspecific calcaneal enthesophytes, stable. Electronically signed by: Jadiel Cardoso MD 10/13/2024 03:12 PM EDT
== END 2024-10-13 13:24 | disposition home or self-care (01) ==
LOC: HO.XRAY 13:23
PROVIDERS: PCP Internal Medicine; Visit Provider Nurse Practitioner
DX: K21.9 Gastro-esophageal reflux disease without esophagitis (principal); D12.6 Benign neoplasm of colon, unspecified; M25.571 Pain in right ankle and joints of right foot; R19.7 Diarrhea, unspecified; Z83.79 Family history of other diseases of the digestive system; Z79.899 Other long term (current) drug therapy
CPT/HCPCS: 73610; 73620

== ENCOUNTER 2024-10-13 13:23 | Outpatient (AMB) | payer BC, SELFPAY ==
--- NOTE | 2024-10-13 13:33 | MHC.OFFVIS ---
Vital Signs 10/13/24 13:38 Height 5 ft 4 in BMI Reason not done Patient refused/unable BP 130/69 Blood Pressure Location Lt brachial Position Sitting Pulse 60 Intake Visit Reasons: 7wk Intake Note: Gabriela presents in the office as a 7 week follow up. CC: She states that she is still having symptoms and that her bowels are very abnormal. She is not sure if it was the 3 rounds of C-Diff. 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 The pt is reporting bowel issues s/p tx c diff. She is reporting that she is having frequent stooling and it tends to be not formed but of a shredded nature. She is also moving her bowels much more copiously than she had in the past. Fortunately she is not having any severe pain or abdominal cramping nor she having a lot of gastric presentation such as nausea and vomiting. Her last C diff study was negative as was the toxin which is encouraging. She is taking a probiotic but she is not eating much fiber at this time. I have recommended that she start a fiber supplement because this really aids the colon in calming the irritability and and healing itself once the acute phase has been addressed. She is also concerned because her father had severe Crohn's disease. While this seems unlikely it does have a bimodal onset, I am less concerned because her colonoscopy was about a year ago and there were no signs of inflammatory bowel disease at that time. However we will add a CRP and a fecal calprotectin to be thorough along with a RAST panel. Return office visit in 4 weeks Orders: Orders Calprotectin, Fecal Today R19.7 - Diarrhea, unspecified C Reactive Protein Today R19.7 - Diarrhea, unspecified Rast Allergen Today R19.7 - Diarrhea, unspecified LABS Laboratory Tests 07/28/24 07/29/24 12:49 08:05 C-Reactive Protein 0.15 Stool Calprotectin 23 RAST allergy panel shows no significant food allergies [facility]IT [facility] Medical History Vaginal yeast infection Encounter for general adult medical examination with abnormal findings Nausea C. difficile diarrhea Elevated amylase Colon cancer screening Nausea and vomiting Pre-op examination Encounter for routine gynecological examination Syncope Chronic GERD Anxiety, generalized Prediabetes Hypertension, essential Lipid disorder Surgical History History of carpal tunnel release History of section Hx of cholecystectomy Family History Father HTN (hypertension) Myocardial infarction Colon cancer Crohn's disease Mother HTN (hypertension) Diverticulitis Brother CAD (coronary artery disease) Maternal Grandfather History of heart attack Maternal Grandmother Lung cancer Paternal Grandfather No problems noted. Paternal Grandmother No problems noted. Brother No problems noted. Brother No problems noted. Sister No problems noted. Sister No problems noted. Sister No problems noted. Son No problems noted. Daughter No problems noted. Social History Housing: House Patient Tobacco Use Status: Never used Tobacco e-Cigarette/Vaping Use: Never Used service: No Current occupational status: retired Cognitive needs: No Hearing needs: No Vision needs: No Review of Systems Const Denies fatigue, Denies fever(s), Denies night sweats, Denies poor appetite and Denies weight loss ENT Reports Normal hearing present, Denies dental pain, Denies dysphagia, Denies hearing loss, Denies mouth pain, Denies odynophagia, Denies throat swelling, Denies tongue swelling and Reports other (Dentition adequate) Card Reports no additional complaints Resp Reports no additional complaints GI Details: Denies abdominal pain, Denies melena, Denies bloating, Denies hematochezia, Denies constipation, Denies GI cramping, Denies dysphagia, Denies excessive flatus, Denies early satiety, Denies heartburn, Denies diarrhea, Reports loose stools, Denies nausea, Denies odynophagia, Denies vomiting and Denies hematemesis Skin/Breast Denies pruritus, Denies lesions, Denies rash and Denies jaundice Neuro Reports Normal hearing present and Denies Abnormal speech present Endo Denies fatigue Aller/Immun Denies throat swelling and Denies tongue swelling Physical Exam Vital Signs: Last Vital Signs Pulse 60 10/13/24 13:38 BP 130/69 10/13/24 13:38 Const General: cooperative, no acute distress, well developed and well groomed Nutritional Appearance: well nourished and obese Orientation/consciousness: oriented to person, oriented to place and oriented to time Limitations: No language barrier HEENT Head: Yes normocephalic and Yes atraumatic Eyes General: appearance normal, both eyes and all related structures Pupils: Equal, round and reactive pupils present Neck Neck: Yes normal visual inspection and Yes no lymphadenopathy Thyroid: Thyroid normal Resp Effort & Inspection: normal respiratory effort and able to speak in complete sentences Auscultation: clear to auscultation bilaterally Cardio Rate: regular rate Rhythm: regular rhythm Heart sounds: Normal, physiologic split S2 sound present Peripheral pulses: radial pulses present and posterior tibial pulses present GI Inspection: No distended, Yes Abdominal panniculus present and Yes obesity Palpation (GI): Soft to palpation, nontender, no guarding, not rigid and No hepatosplenomegaly present Percussion: Yes normal to percussion Auscultation: normal bowel sounds Rectal Exam - Female: deferred Skin General skin exam: no rashes or lesions noted, turgor normal, skin not dry, no jaundice, No spider nevi and no striae Rashes: no rashes Nails: normal Neuro General: oriented to person, oriented to place and oriented to time Cranial nerves: Yes Equal, round and reactive pupils present and Yes Normal hearing present Speech: No Abnormal speech present Extrem General: Yes normal to inspection, No clubbing, No cyanosis and No edema Psych Appearance: grossly normal and well kempt Mental Status: mental status grossly normal Speech and movement: Normal speech and movement present Affect: normal affect Attitude: cooperative Thought process: Normal thought process present and not confabulating Thought content: Normal thought content present Insight: Fair insight present (Psych) Judgement: Fair judgement present (Psych) Results Reviewed Results Reviewed: Laboratory Tests 07/28/24 07/29/24 12:49 08:05 C-Reactive Protein 0.15 Stool Calprotectin 23 RAST allergy panel shows no significant food allergies Assessment & Plan Assessment & Plan (1) Abdominal pain: Code(s): R10.9 - Unspecified abdominal pain Category: Medical (2) Right ankle pain: Code(s): M25.571 - Pain in right ankle and joints of right foot Category: Medical (3) Tubular adenoma of colon: Code(s): D12.6 - Benign neoplasm of colon, unspecified Category: Medical (4) Chronic GERD: Code(s): K21.9 - Gastro-esophageal reflux disease without esophagitis Category: Medical (5) Family history of Crohn's disease: Code(s): Z83.79 - Family history of other diseases of the digestive system Category: Medical Plan History of Present Illness - The patient is a 69 year old female presenting with loose stools that have persisted after C diff infection. - Symptoms include passing stools 3-4 times daily with an oily consistency. - She denies abdominal pain currently but had a prior episode of some pain thought to be related to constipation. - Patient had her gallbladder removed many years ago. - No inflammatory bowel disease or significant food allergies detected in recent evaluations. - Daily fiber supplements have not significantly altered symptoms thus far. - Concerns revolve primarily around the sudden change in bowel habits and its potential implications. Specifically she is quite worried that she might have cancer. I believe that this is simply a combination of a severe intestinal infection combined with age-related changes and the pancreas not being able to produce the enzyme as well to help her digest fat. Plan - Initiate a bile binding agent trial with Carafate, starting at half a tablet daily, to manage stool consistency. - Arrange for an abdominal CT scan after confirming renal function with updated laboratory work. - Maintain fiber supplement, I have given her a quantity of 2 Carafate per day and she can adjust this upper down to her knee. We want to make sure we do not make her severely constipated as this cause her some pain in the past. - Follow-up post-CT scan to reassess treatment efficacy and patient symptomatology. - Advise patient to report new or worsening symptoms or adverse medication effects. Patient was informed and verbally consented to the use of an ambient scribe for clinic note documentation during this visit. Patient Instructions - Start taking half a tablet of Carafate each day. Gradually adjust the dose based on how you feel. - Discontinue MiraLax for now, but continue using your daily fiber supplement. - once radiology calls it to schedule the CAT scan call our office to schedule a follow-up appointment. - Report any new or worsening symptoms, such as more frequent stools or abdominal pain. - Contact us if you have any side effects from the medication. -please go for x-ray of your ankle and foot today. If it is fractured I will then refer you for appropriate care, if it is a sprain you will probably need to get an ankle support or Piter wrap and be nonweightbearing for period of time until it heals. Doorknob complaint of right ankle/foot pain. Patient can not identify any particular trauma. Physical exam there is an area of what looks like dependent bruising below the ankle pain on the lateral malleolus no particular pain along any of the lateral tarsus. Getting an x-ray of the foot and ankle. Return office visit after CAT scan Orders: Orders CT abdomen pelvis w IV con Today R10.9 - Unspecified abdominal pain Blood Urea Nitrogen Today R10.9 - Unspecified abdominal pain XR foot RT 2V Today M25.571 - Pain in right ankle and joints of right foot Creatinine Today R10.9 - Unspecified abdominal pain XR ankle RT min 3V Today M25.571 - Pain in right ankle and joints of right foot Medications: New sucralfate (Carafate) 2 grams (2 x 1 gram) PO QNOON 60 tabs 6RF barium sulfate 2%(w/v) (Readi-Cat 2) 150 mL PO ONCE 300 mL 0RF 1 day R10.9 - Unspecified abdominal pain Discontinued Zepbound (tirzepatide (weight loss)) for 4 weeks Discontinued Reason: Patient Completed Course 2.5 mg (0.5 mL) subcut QWEEK 2 mL 0RF NS Coding Level of Care Code Est Pt Level 3 (45973) Diagnoses Abdominal pain R10.9 Right ankle pain M25.571 Tubular adenoma of colon D12.6 Chronic GERD K21.9 Family history of Crohn's disease Z83.79
[2024-10-13 13:38] VITALS: BP 130/69; PULSE 60
--- OUTSIDE RECORDS SUMMARY | 2024-10-13 14:17 | XMS_ITS | Patient Health Record ---
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 Role Phone Courtney العراقي, Liset Primary Care Provider Bud Summers Unavailable [phone] Reason For Referral No Information Medications Medication SIG (Take, Route, Frequency, Duration) Notes Start Date End Date Status Pantoprazole Sodium 40 MG 1 tablet Orally BID for 30 Active Problems Problem Type SNOMED Code ICD Code Onset Dates Problem Status W/U Status Risk Notes Problem 131094119 Encounter for screening for malignant neoplasm of colon (Z12.11) Active confirmed Problem 902667050 History of adenomatous polyp of colon (Z86.010) Active confirmed Problem Encounter for screening for malignant neoplasm of rectum (Z12.12) Active confirmed Problem 388577767 Gastroesophageal reflux disease without esophagitis (K21.9) Active confirmed Problem 897608116 Family history o f colon cancer (Z80.0) Active confirmed Problem 07436164 Hiatal hernia (K44.9) Active confirmed Plan Of Treatment Future Test Test Name Order Date UPPER GI ENDOSCOPY 12/28/2015 COLONOSCOPY 12/28/2015 Insurance Providers Payer Name Payer Address Payer Phone Subscriber Number Group Number Insured Name Patient Relationship to Insured Coverage Start Date Coverage End Date [facility] [address] [place], [place] [id number] [phone] [id number] LORNA JANENE Self - patient is the insured Medical (General) History Medical History History ICD Code Screening Colonoscopy--2009- -1 small tubular adenoma, hyperplastic polyp, diverticulosis, internal hemorrhoids GERD--small to moderate-size d Hiatal hernia--EGD in 08/2009--no esophagitis nor Voss's esophagus Denies [place],DM,CVA,Lung disease,renal dise ase Surgical History Surgery Date(Month/Year) Cholecystectomy Left breast surgery--benign
== END 2024-10-13 14:00 | disposition home or self-care (01) ==
LOC: HO.HGI 13:24
PROVIDERS: PCP Internal Medicine; Visit Provider Nurse Practitioner
DX: R10.9 Unspecified abdominal pain (principal); M25.571 Pain in right ankle and joints of right foot; D12.6 Benign neoplasm of colon, unspecified; K21.9 Gastro-esophageal reflux disease without esophagitis; Z83.79 Family history of other diseases of the digestive system
CPT/HCPCS: 99213

== ENCOUNTER → 2024-10-13 14:16 | Outpatient (BNV) | payer BC, SELFPAY | PROVIDERS: PCP Internal Medicine; Visit Provider Radiology Diagnostic Radiology | DX: M25.571 Pain in right ankle and joints of right foot (principal); M79.671 Pain in right foot | CPT/HCPCS: 73610; 73620 ==

== ENCOUNTER 2024-10-28 06:50 | Outpatient (AMB) | payer BC, SELFPAY ==
--- OUTSIDE RECORDS SUMMARY | 2024-10-28 06:54 | XMS_ITS | Patient Health Record ---
Author Organization 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 Role Phone Courtney العراقي, Liset Primary Care Provider Bud Summers Unavailable [phone] Reason For Referral No Information Medications Medication SIG (Take, Route, Frequency, Duration) Notes Start Date End Date Status Pantoprazole Sodium 40 MG 1 tablet Orally BID for 30 Active Problems Problem Type SNOMED Code ICD Code Onset Dates Problem Status W/U Status Risk Notes Problem [id number] Encounter for screening for malignant neoplasm of colon (Z12.11) Active confirmed Problem 340906958 History of adenomatous polyp of colon (Z86.010) Active confirmed Problem Screening for malignant neoplasm of rectum (528078341) Encounter for screening for malignant neoplasm of rectum (Z12.12) Active confirmed Problem 889646982 Gastroesophageal reflux disease without esophagitis (K21.9) Active confirmed Problem 928992697 Family history o f colon cancer (Z80.0) Active confirmed Problem 41304869 Hiatal hernia (K44.9) Active confirmed Plan Of Treatment Future Test Test Name Order Date UPPER GI ENDOSCOPY 12/28/2015 COLONOSCOPY 12/28/2015 Insurance Providers Payer Name Payer Address Payer Phone Subscriber Number Group Number Insured Name Patient Relationship to Insured Coverage Start Date Coverage End Date [facility] [address] [place], [place] [id number] LORNA JANENE Self - patient is the insured Medical (General) History Medical History History ICD Code Screening Colonoscopy--2009- -1 small tubular adenoma, hyperplastic polyp, diverticulosis, internal hemorrhoids GERD--small to moderate-size d Hiatal hernia--EGD in 08/2009--no esophagitis nor Voss's esophagus Denies [place],DM,CVA,Lung disease,renal dise ase Surgical History Surgery Date(Month/Year) Cholecystectomy Left breast surgery--benign
--- NOTE | 2024-10-28 09:24 | A.OFFPC_ITS ---
Intake Visit Reasons: referral for neurology Allergies No Known Allergies (No Known Allergies*) Allergy (Verified 10/13/24 13:37) Medication List - Last Reconciled 10/28/24 by Mis Nichols MD atenolol 50 mg PO DAILY barium sulfate 2%(w/v) (Readi-Cat 2) 300 mL PO ONCE 1 day barium sulfate 2%(w/v) (Readi-Cat 2) 900 mL PO ONCE 1 day escitalopram oxalate 5 mg PO DAILY ondansetron HCl 4 mg PO ONCE PRN 30 days pantoprazole 40 mg PO DAILY 90 days simvastatin 20 mg PO DAILY 90 days sucralfate (Carafate) 2 grams (2 x 1 gram) PO QNOON Tobacco use date assessed: 03/23/24 Dental Screening Dental Screen Date: 03/23/24 HPI referral for neurology HPI Details History of Present Illness The patient is a 69 year old female presenting with bilateral hand numbness and tingling. Carpal Tunnel Syndrome: - The patient reports bilateral hand iss ues described as numbness, tingling, and a constant itchy sensation. - Symptoms affect her daily activities, including driving, and are present throughout the entire day. - A prior surgery was conducted on one h and due to carpal tunnel syndrome, although the specifics are unclear. - She has not attempted to use splints f or symptom relief. - The patient is considering specialist consultation and further diagnostic testing, including an EMG nerve conduction study, for persistent symptoms. Problem List - Carpal Tunnel Syndrome Patient Instructions - Obtain and begin wearing a wrist splin t as much as possible, particularly during sleep, to alleviate symptoms. - Pay attention to hand positioning, osorio ecially when holding a steering wheel, to reduce symptom severity. - Consider seeing a hand specialist for further evaluation. - An EMG nerve conduction study may be i nitiated to assess the severity of the condition. Review of Systems - General: No fever no chills - Neurological: No headaches no dizziness - Ear nose throat: No sore throat no hearing difficulty no ear pain - Cardiovascular: No syncope, no chest pain, no palpitations - Gastrointestinal: No nausea vomiting or diarrhea [facility] Medical History Vaginal yeast infection Encounter for general adult medical examination with abnormal findings Nausea C. difficile diarrhea Elevated amylase Colon cancer screening Nausea and vomiting Pre-op examination Encounter for routine gynecological examination Syncope Chronic GERD Anxiety, generalized Prediabetes Hypertension, essential Lipid disorder Surgical History History of carpal tunnel release History of section Hx of cholecystectomy Family History Father HTN (hypertension) Myocardial infarction Colon cancer Crohn's disease Mother HTN (hypertension) Diverticulitis Brother CAD (coronary artery disease) Maternal Grandfather History of heart attack Maternal Grandmother Lung cancer Paternal Grandfather No problems noted. Paternal Grandmother No problems noted. Brother No problems noted. Brother No problems noted. Sister No problems noted. Sister No problems noted. Sister No problems noted. Son No problems noted. Daughter No problems noted. Social History Housing: House Patient Tobacco Use Status: Never used Tobacco e-Cigarette/Vaping Use: Never Used service: No Current occupational status: retired Cognitive needs: No Hearing needs: No Vision needs: No Questionnaire Thrive Questionnaire Date Thrive assessed: 03/16/24 I am a: Patient What is your living situation today?: I have a steady place to live Within the past 12 months, did the food you bought not last and you didn't have the money to get more?: Never true Within the past 12 months, did you worry whether your food would run out before you got money to buy more?: Never true Do you have trouble paying for medicines?: No Do you have trouble getting transportation to medical appointments?: No Do you have trouble paying your heating and electricity bill?: No Do you have trouble taking care of your child, family member or friend?: No Do you have trouble with day-to-day activities such as bathing, preparing meals, shopping, managing finances, etc.?: No Are you currently unemployed and looking for a job?: No Are you interested in more education?: No Please select the resources that you would like help with: None Currently or been in a relationship where the following occur: No concerns reported THRIVE Score: 0 DOM-7 AMB Questionnaire ODM-7 Date DOM - 7 assessed: 09/08/24 Source: Developed by Saida Leong.W. Lei, Bal Tanner and colleagues, with an educational betzy from [employer]. Physical exam (Primary Care) Tobacco/Smoking Status: Tobacco use Status Tobacco use date assessed 03/23/24 10/28/24 09:24 Patient Tobacco Use Status Never used Tobacco 10/28/24 09:24 e-Cigarette/Vaping Use Never Used 10/28/24 09:24 Thrive Assessment: Date of Thrive Assessment Date Thrive assessed 03/16/24 10/28/24 09:24 Currently or been in a relationship where the following occur: No concerns reported Telehealth Telehealth Telehealth Platform: [employer] Location of provider rendering services: practice address Location of patient: address on file Patient Identification confirmed using: Name, : Yes Telehealth method: video Patient verbally consented to treatment: Yes Patient verbally consented to billing insurance company: Yes Patient informed of any privacy concerns related to visit: Yes Minutes spent on Phone/Video with Pt.: 13 Coding Level of Care Code Tele Est Pt Level 3 (41389) Diagnoses Carpal tunnel syndrome, bilateral G56.03 Assessment & Plan Assessment & Plan (1) Carpal tunnel syndrome, bilateral: Code(s): G56.03 - Carpal tunnel syndrome, bilateral upper limbs Category: Medical Plan History of Present Illness The patient is a 69 year old female presenting with bilateral hand numbness and tingling. Carpal Tunnel Syndrome: - The patient reports bilateral hand issues described as numbness, tingling, and a constant itchy sensation. - Symptoms affect her daily activities, including driving, and are present throughout the entire day. - A prior surgery was conducted on one hand due to carpal tunnel syndrome, although the specifics are unclear. - She has not attempted to use splints for symptom relief. - The patient is considering specialist consultation and further diagnostic testing, including an EMG nerve conduction study, for persistent symptoms. Problem List - Carpal Tunnel Syndrome Patient Instructions - Obtain and begin wearing a wrist splint as much as possible, particularly during sleep, to alleviate symptoms. - Pay attention to hand positioning, especially when holding a steering wheel, to reduce symptom severity. - Consider seeing a hand specialist for further evaluation. - An EMG nerve conduction study may be initiated to assess the severity of the condition. Orders: Orders NE electromyogram (EMG) Today G56.00 - Carpal tunnel syndrome, unspecified upper limb NE nerve conduction velocity Today G56.00 - Carpal tunnel syndrome, unspecified upper limb Referrals 2 Orthopedics Referral G56.03 - Carpal tunnel syndrome, bilateral upper limbs
== END 2024-10-28 10:57 | disposition home or self-care (01) ==
LOC: HO.HMCC 06:51
PROVIDERS: PCP Internal Medicine; Visit Provider Internal Medicine
DX: G56.03 Carpal tunnel syndrome, bilateral upper limbs (principal)

== ENCOUNTER 2024-12-07 08:47 | Outpatient (REF) | payer BC, SELFPAY ==
--- NOTE | 2024-12-07 08:53 | EMG_ITS ---
Chief complaint: Pain and numbness of bilateral hands Reason for referral: G56.00 Carpal Tunnel Syndrome Referred by: Mis Nichols MD Procedure done: Bilateral upper extremity NCS / EMG Bilateral median and ulnar motor studies were performed. Bilateral median and ulnar mixed sensory studies and radial sensory studies were performed. EMG needle examination was performed. Bilateral median motor distal latencies were significantly prolonged with similarly prolonged median mixed sensory distal latencies and there conduction velocities in 20s. Median mixed amplitudes were also significantly reduced. Impression: Moderately severe bilateral median neuropathy across carpal tunnel MTDD
--- OUTSIDE RECORDS SUMMARY | 2024-12-07 09:19 | XMS_ITS | Patient Health Record ---
Author Organization [facility] Address [address] [place] [address] Care Team Providers Care Sap Pi Architect Name Role Phone Courtney العراقي, Liset Primary Care Provider Bud Summers Unavailable [phone] Reason For Referral No Information Medications Medication SIG (Take, Route, Frequency, Duration) Notes Start Date End Date Status Pantoprazole Sodium 40 MG 1 tablet Orall y BID; Duration: 30 Active Problems Problem Type SNOMED Code ICD Code Onset Dates Problem Status W/U Status Risk Notes Problem Screening for malignant neoplasm of colon (961031392) Encounter for screening for malignant neoplasm of colon (Z12.11) Active confirmed Problem History of adenomatous polyp of colon (953899479) History of adenomatous polyp of colon (Z86.010) Active confirmed Problem Screening for malignant neoplasm of rectum (307401821) Encounter for screening for malignant neoplasm of rectum (Z12.12) Active confirmed Problem Gastroesophageal reflux disease without esophagitis (352622236) Gastroesophageal reflux disease without esophagitis (K21.9) Active confirmed Problem Family History of Cancer of Colon (Situation) (373437896) Family history of colon cancer (Z80.0) Active confirmed Problem Hiatal hernia (03739275) Hiatal hernia (K44.9) Active confirmed Plan Of Treatment Future Test Test Name Order Date UPPER GI ENDOSCOPY 12/28/2015 COLONOSCOPY 12/28/2015 Insurance Providers Payer Name Payer Address Payer Phone Subscriber Number Group Number Insured Name Patient Relationship to Insured Coverage Start Date Coverage End Date [facility] [address] [place], [place] [id number] [phone] [id number] COUTUREJANENE Self - patient is the insured Medical (General) History Medical History History ICD Code Screening Colonoscopy--2009- -1 small tubular adenoma, hyperplastic polyp, diverticulosis, internal hemorrhoids GERD--small to moderate-size d Hiatal hernia--EGD in 08/2009--no esophagitis nor Voss's esophagus Denies [place],DM,CVA,Lung disease,renal dise ase Surgical History Surgery Date(Month/Year) Cholecystectomy Left breast surgery--benign
== END 2024-12-07 08:48 | disposition home or self-care (01) ==
LOC: HO.NEURO 08:47
PROVIDERS: PCP Internal Medicine; Visit Provider Internal Medicine
DX: G56.03 Carpal tunnel syndrome, bilateral upper limbs (principal); R20.0 Anesthesia of skin
CPT/HCPCS: 95886; 95911

== ENCOUNTER → 2024-12-07 08:53 | Outpatient (BNV) | payer BC, SELFPAY | PROVIDERS: PCP Internal Medicine; Visit Provider Psychiatry & Neurology Neurology | DX: G56.03 Carpal tunnel syndrome, bilateral upper limbs (principal) | CPT/HCPCS: 95886; 95911 ==

== ENCOUNTER 2024-12-09 12:29 | Outpatient (REF) | payer BC, SELFPAY ==
--- OUTSIDE RECORDS SUMMARY | 2024-12-09 15:39 | XMS_ITS | Patient Health Record ---
Author Organization [facility] Address [address] [place] [address] Care Team Providers Care Excelsior Cutter Name Role Phone Courtney العراقي, Liset Primary Care Provider Bud Summers Unavailable [phone] Reason For Referral No Information Medications Medication SIG (Take, Route, Frequency, Duration) Notes Start Date End Date Status Pantoprazole Sodium 40 MG 1 tablet Orall y BID; Duration: 30 Active Problems Problem Type SNOMED Code ICD Code Onset Dates Problem Status W/U Status Risk Notes Problem Screening for malignant neoplasm of colon (711740360) Encounter for screening for malignant neoplasm of colon (Z12.11) Active confirmed Problem History of adenomatous polyp of colon (992135952) History of adenomatous polyp of colon (Z86.010) Active confirmed Problem Screening for malignant neoplasm of rectum (703393788) Encounter for screening for malignant neoplasm of rectum (Z12.12) Active confirmed Problem Gastroesophageal reflux disease without esophagitis (293157032) Gastroesophageal reflux disease without esophagitis (K21.9) Active confirmed Problem Family History of Cancer of Colon (Situation) (942716685) Family history of colon cancer (Z80.0) Active confirmed Problem Hiatal hernia (61950951) Hiatal hernia (K44.9) Active confirmed Plan Of Treatment Future Test Test Name Order Date UPPER GI ENDOSCOPY 12/28/2015 COLONOSCOPY 12/28/2015 Insurance Providers Payer Name Payer Address Payer Phone Subscriber Number Group Number Insured Name Patient Relationship to Insured Coverage Start Date Coverage End Date [facility] [address] [place], [place] [id number] [phone] [id number] COUTUREJANENE Self - patient is the insured Medical (General) History Medical History History ICD Code Screening Colonoscopy--2009- -1 small tubular adenoma, hyperplastic polyp, diverticulosis, internal hemorrhoids GERD--small to moderate-size d Hiatal hernia--EGD in 08/2009--no esophagitis nor Voss's esophagus Denies [place],DM,CVA,Lung disease,renal dise ase Surgical History Surgery Date(Month/Year) Cholecystectomy Left breast surgery--benign
[2024-12-09 16:18] LABS: Blood Urea Nitrogen 14 mg/dL (9-16); Estimated Glomerular Filt Rate > 60
== END 2024-12-09 12:30 | disposition home or self-care (01) ==
LOC: HO.HMGCLDS 12:29
PROVIDERS: PCP Internal Medicine; Visit Provider Nurse Practitioner
DX: R10.9 Unspecified abdominal pain (principal)
CPT/HCPCS: 36415; 82565; 84520

== ENCOUNTER 2024-12-10 12:50 | Outpatient (REF) | payer BC, SELFPAY ==
--- NOTE | ~2024-12-10 | CT_ITS ---
EXAMINATION: CT ABDOMEN AND PELVIS WITH CONTRAST CLINICAL INFORMATION: Unspecified abdominal pain. R 10.9 COMPARISON: None available. TECHNIQUE: Multidetector volumetric images were obtained from the superior aspect of the liver through the pubic symphysis following administration 85 mL of Omnipaque 350 intravenous contrast. Sagittal and coronal reformatted images were obtained on the technologist's workstation. Oral contrast: Yes This CT examination was performed using dose optimization techniques as appropriate, variously including the following: *Automated exposure control *Adjustment of mA and/or kV according to patient size (this includes techniques or standardized protocols for targeted exams where dose is matched to indication/reason for exam; i.e. extremities or head) *Use of iterative reconstruction technique Total DLP: 721 mg centimeter. FINDINGS: LUNG BASES: No acute airspace disease. LIVER, GALLBLADDER, AND BILIARY TREE: Liver measures 16 cm. No focal mass. Portal veins, hepatic veins are patent. Gallbladder is absent. No intrahepatic or extrahepatic biliary ductal dilatation. PANCREAS: 3 cm soft tissue fullness, head of the pancreas. No peripancreatic fluid collection. No main pancreatic ductal dilatation. SPLEEN: 8 cm. No focal mass. ADRENAL GLANDS: No nodular lesions. KIDNEYS AND URETERS: 12 mm exophytic hypodensity, upper pole right kidney which measures 74 Hounsfield units. No hydronephrosis or nephrolithiasis in either kidney. BLADDER: Fluid-filled. GASTROINTESTINAL TRACT: Small hiatal hernia. Abundant stool, large intestine. Numerous diverticula in the sigmoid colon. No intestinal obstruction pattern. Terminal ileum is normal. Probable small normal appendix. No ascites. No pneumoperitoneum. No pneumatosis intestinalis. ABDOMINAL WALL: No umbilical hernia. LYMPH NODES: No specific prominent mesenteric. VASCULAR: Calcified plaques abdominal aorta wall and iliac arteries without aneurysm or dissection. Calcified plaques in the aortic valve. PELVIC VISCERA: Not enlarged. OSSEOUS STRUCTURES: Multilevel thoracolumbar spondylosis pronounced at L5-S1. 4.5 cm fat density lesion versus mass in the anterior right hip likely right iliac muscle. CT/CT abdomen pelvis w IV con IMPRESSION: Questionable 3 cm soft tissue fullness, pancreatic head. 12 mm exophytic hypodense lesion upper pole right kidney. Recommend dedicated dynamic IV contrast enhanced MRI abdomen. Diverticular disease, sigmoid colon. 4.5 cm lipoma, right iliac muscle. Atherosclerosis disease. Hepatomegaly, mild. Spondylosis, L5-S1. Fleischner guidelines were followed. Electronically signed by: Sawyer Portillo MD 12/10/2024 03:49 PM EDT RP
--- OUTSIDE RECORDS SUMMARY | 2024-12-10 15:11 | XMS_ITS | Patient Health Record ---
Author Organization [facility] Address [address] [place] [address] Care Team Providers Care Spun Paste Machine Operator Name Role Phone Courtney العراقي, Liset Primary Care Provider Bud Summers Unavailable [phone] Reason For Referral No Information Medications Medication SIG (Take, Route, Frequency, Duration) Notes Start Date End Date Status Pantoprazole Sodium 40 MG 1 tablet Orall y BID; Duration: 30 Active Problems Problem Type SNOMED Code ICD Code Onset Dates Problem Status W/U Status Risk Notes Problem Screening for malignant neoplasm of colon (924205630) Encounter for screening for malignant neoplasm of colon (Z12.11) Active confirmed Problem History of adenomatous polyp of colon (962080914) History of adenomatous polyp of colon (Z86.010) Active confirmed Problem Screening for malignant neoplasm of rectum (706261891) Encounter for screening for malignant neoplasm of rectum (Z12.12) Active confirmed Problem Gastroesophageal reflux disease without esophagitis (443724442) Gastroesophageal reflux disease without esophagitis (K21.9) Active confirmed Problem Family History of Cancer of Colon (Situation) (187474241) Family history of colon cancer (Z80.0) Active confirmed Problem Hiatal hernia (95293542) Hiatal hernia (K44.9) Active confirmed Plan Of Treatment Future Test Test Name Order Date UPPER GI ENDOSCOPY 12/28/2015 COLONOSCOPY 12/28/2015 Insurance Providers Payer Name Payer Address Payer Phone Subscriber Number Group Number Insured Name Patient Relationship to Insured Coverage Start Date Coverage End Date [facility] [address] [place], [place] [id number] COUTUREJANENE Self - patient is the insured Medical (General) History Medical History History ICD Code Screening Colonoscopy--2009- -1 small tubular adenoma, hyperplastic polyp, diverticulosis, internal hemorrhoids GERD--small to moderate-size d Hiatal hernia--EGD in 08/2009--no esophagitis nor Voss's esophagus Denies [place],DM,CVA,Lung disease,renal dise ase Surgical History Surgery Date(Month/Year) Cholecystectomy Left breast surgery--benign
[2024-12-10] MEDS: iohexoL 350 MG/ML 100 ML INFUS..BTL IV (15:24)
[2024-12-10] MEDS: Barium Sulfate Oral (Vanilla) 450 ML ORAL.SUSP 900 ML PO (15:25)
== END 2024-12-10 12:51 | disposition home or self-care (01) ==
LOC: HO.CT 12:50
PROVIDERS: PCP Internal Medicine; Visit Provider Nurse Practitioner
DX: R10.9 Unspecified abdominal pain (principal)
CPT/HCPCS: 74177; Q9967

== ENCOUNTER → 2024-12-10 12:52 | Outpatient (BNV) | payer BC, SELFPAY | PROVIDERS: PCP Internal Medicine; Visit Provider Radiology Diagnostic Radiology | DX: R10.9 Unspecified abdominal pain (principal) | CPT/HCPCS: 74177 ==

== ENCOUNTER 2024-12-23 11:03 | Outpatient (REF) | payer BC, SELFPAY ==
--- OUTSIDE RECORDS SUMMARY | 2024-12-23 13:50 | XMS_ITS | Patient Health Record ---
Author Organization [facility] Address [address] [place] [address] Care Team Providers Care Correspondence School Teacher Name Role Phone Courtney العراقي, Liset Primary Care Provider Bud Summers Unavailable [phone] Reason For Referral No Information Medications Medication SIG (Take, Route, Frequency, Duration) Notes Start Date End Date Status Pantoprazole Sodium 40 MG 1 tablet Orall y BID; Duration: 30 Active Problems Problem Type SNOMED Code ICD Code Onset Dates Problem Status W/U Status Risk Notes Problem Screening for malignant neoplasm of colon (087048694) Encounter for screening for malignant neoplasm of colon (Z12.11) Active confirmed Problem History of adenomatous polyp of colon (299413799) History of adenomatous polyp of colon (Z86.010) Active confirmed Problem Screening for malignant neoplasm of rectum (082539246) Encounter for screening for malignant neoplasm of rectum (Z12.12) Active confirmed Problem Gastroesophageal reflux disease without esophagitis (173222127) Gastroesophageal reflux disease without esophagitis (K21.9) Active confirmed Problem Family History of Cancer of Colon (Situation) (174458979) Family history of colon cancer (Z80.0) Active confirmed Problem Hiatal hernia (80443651) Hiatal hernia (K44.9) Active confirmed Plan Of Treatment Future Test Test Name Order Date UPPER GI ENDOSCOPY 12/28/2015 COLONOSCOPY 12/28/2015 Insurance Providers Payer Name Payer Address Payer Phone Subscriber Number Group Number Insured Name Patient Relationship to Insured Coverage Start Date Coverage End Date [facility] [address] [place], [place] [id number] COUTUREJANENE Self - patient is the insured Medical (General) History Medical History History ICD Code Screening Colonoscopy--2009- -1 small tubular adenoma, hyperplastic polyp, diverticulosis, internal hemorrhoids GERD--small to moderate-size d Hiatal hernia--EGD in 08/2009--no esophagitis nor Voss's esophagus Denies [place],DM,CVA,Lung disease,renal dise ase Surgical History Surgery Date(Month/Year) Cholecystectomy Left breast surgery--benign
== END 2024-12-23 11:04 | disposition home or self-care (01) ==
LOC: HO.HMGCLDS 11:03
PROVIDERS: PCP Internal Medicine; Visit Provider Nurse Practitioner
DX: K86.9 Disease of pancreas, unspecified (principal); R10.9 Unspecified abdominal pain
CPT/HCPCS: 36415; 86301

== ENCOUNTER → 2025-01-13 13:35 | Outpatient (BNV) | payer BC, SELFPAY | PROVIDERS: PCP Internal Medicine; Visit Provider Radiology Diagnostic Radiology | DX: K86.9 Disease of pancreas, unspecified (principal) | CPT/HCPCS: 74183 ==

== ENCOUNTER 2025-01-13 13:36 | Outpatient (REF) | payer BC, SELFPAY ==
--- NOTE | ~2025-01-13 | MR_ITS ---
EXAMINATION: MR ABDOMEN WITHOUT AND WITH CONTRAST CLINICAL INFORMATION: K 86.9. Disease of pancreas. Kidney lesion. Abnormal CT. COMPARISON: Correlated to CT dated December 10, 2024 TECHNIQUE: MR abdomen was performed without and with use of 10 mL intravenous (Gadavist) gadolinium contrast. Postcontrast images are performed in multiphase dynamic sequences. Imaging was performed in 3 planes. No reported immediate complications. DWI was not acquired. ADC map was not acquired. FINDINGS: LUNG BASES: No signal abnormality or enhancing lesion. LIVER, GALLBLADDER, AND BILIARY TREE: Liver measures 15 cm. Normal signal. No solid or cystic enhancing mass. Gallbladder is absent. No intrahepatic or extrahepatic biliary ductal dilatation. Common bile duct measures 4.4 mm. PANCREAS: No solid or cystic lesion. Main pancreatic duct measures 1.5 mm. No peripancreatic fluid collection. SPLEEN: 9 cm. No solid or cystic lesion. ADRENAL GLANDS: No nodular lesion. KIDNEYS AND URETERS: Right kidney: There is an 11 mm ill-defined isointense T1 and T2 probably thin septated mildly enhancing exophytic lesion in the upper pole. No hydronephrosis. No dilatation of the ureter. Left kidney: No hydronephrosis. Less than 1 cm nonenhancing fluid signal characteristic lesions. Normal enhancement pattern of the renal cortex. No dilatation of the ureter. GASTROINTESTINAL TRACT: Hiatal hernia, small to moderate size. No intestinal dilatation. Abundant stool. Collapsed appearance of the transverse colon and descending colon. ABDOMINAL WALL: No umbilical hernia. LYMPH NODES: No mesenteric or retroperitoneal lymphadenopathy. VASCULAR: No aneurysm or dissection, abdominal aorta. 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 OSSEOUS STRUCTURES: Mild multilevel lower spondylosis. MR/MR abdomen wo/w con IMPRESSION: 11 mm exophytic lesion upper pole right kidney. Concerning for malignancy. No pancreatic mass. Electronically signed by: Sawyer Portillo MD 01/13/2025 03:04 PM EST
--- OUTSIDE RECORDS SUMMARY | 2025-01-13 19:05 | XMS_ITS | Patient Health Record ---
Author Organization [facility] Address [address] [place] [address] Care Team Providers Care Manager Wireless Name Role Phone Courtney العراقي, Liset Primary Care Provider Bud Summers Unavailable [phone] Reason For Referral No Information Medications Medication SIG (Take, Route, Frequency, Duration) Notes Start Date End Date Status Pantoprazole Sodium 40 MG Tablet Delayed Release 1 tablet Orally BID; Duration: 30 Active Social History Social History Additional Details Category Social Info Options Details Miscellaneous: Marital status: Occupation: at home Section Notes: Nonsmoker; no sig. alcohol Problems Problem Type SNOMED Code ICD Code Onset Dates Problem Status W/U Status Risk Notes Problem Screening for malignant neoplasm of colon (567574244) Encounter for screening for malignant neoplasm of colon (Z12.11) Active confirmed Problem History of adenomatous polyp of colon (369497034) History of adenomatous polyp of colon (Z86.010) Active confirmed Problem Screening for malignant neoplasm of rectum (049892753) Encounter for screening for malignant neoplasm of rectum (Z12.12) Active confirmed Problem Gastroesophageal reflux disease without esophagitis (185504022) Gastroesophageal reflux disease without esophagitis (K21.9) Active confirmed Problem Family History of Cancer of Colon (Situation) (857189538) Family history of colon cancer (Z80.0) Active confirmed Problem Hiatal hernia (44375129) Hiatal hernia (K44.9) Active confirmed Plan Of Treatment Future Test Test Name Order Date UPPER GI ENDOSCOPY 12/28/2015 COLONOSCOPY 12/28/2015 Insurance Providers Payer Name Payer Address Payer Phone Subscriber Number Group Number Insured Name Patient Relationship to Insured Coverage Start Date Coverage End Date [facility] [address] [place], [place] [id number] [phone] [id number] COUTUREJANENE Self - patient is the insured Medical (General) History Medical History History ICD Code Screening Colonoscopy--2009- -1 small tubular adenoma, hyperplastic polyp, diverticulosis, internal hemorrhoids GERD--small to moderate-size d Hiatal hernia--EGD in 08/2009--no esophagitis nor Voss's esophagus Denies [place],DM,CVA,Lung disease,renal dise ase Surgical History Surgery Date(Month/Year) Cholecystectomy Left breast surgery--benign
== END 2025-01-13 13:37 | disposition home or self-care (01) ==
LOC: HO.MRI 13:36
PROVIDERS: PCP Internal Medicine; Visit Provider Internal Medicine Gastroenterology
DX: R93.5 Abnormal findings on diagnostic imaging of other abdominal regions, including retroperitoneum (principal); K86.9 Disease of pancreas, unspecified; N28.9 Disorder of kidney and ureter, unspecified
CPT/HCPCS: 74183; A9585

== ENCOUNTER 2025-01-22 11:19 | Outpatient (AMB) | payer BC, SELFPAY ==
--- NOTE | 2025-01-22 11:20 | AM.OFFWIN_ITS ---
Intake Vital Signs 01/22/25 11:31 Height 5 ft 4 in BMI Reason not done Patient refused/unable BP 126/80 Blood Pressure Location Rt brachial Position Sitting Respiration 16 Pulse 61 Pulse Source Pulse Oximeter Temp 97.7 F Temp Source Oral Pulse Oximetry (%) 98 Oxygen Delivery Method Room Air Intake Visit Reasons: EP fell on right arm Intake Note: Pt is here today c/o Lt arm due [place] Patient Tobacco Use Status: Never used Tobacco Allergies No Known Allergies (No Known Allergies*) Allergy (Verified 10/13/24 13:37) HPI HPI Comments History of Present Illness Details Chief Complaint: ?I fell on my left side last night and now I can?t lift my left arm.? History of Present Illness: 70-year-old female with past medical his tory of hypertension, hyperlipidemia, anxiety, GERD, obesity, and prediabetes presents with acute left upper extremity pain after a fall yesterday evening on the [place] She landed on her entire left side, striking her left shoulder/arm and head. Pain is located over the distal clavicle, humeral head, and radiates down to the elbow. She is unable to lift the arm above chest level and reports markedly limited active range of motion due to pain. No prior shoulder problems. She struck her head and believes she ?blacked out? briefly; denies current headache, vision changes, dizziness, or focal weakness. Had a transient headache on the way home, now resolved. Denies posterior scapular pain, chest pain, abdominal pain, or belly tenderness. No use of anticoagulants. 70-year-old female with left shoulder tr auma and possible concussion after fall. Problem #1: Left shoulder injury ? rule out rotator cuff tear / humeral or clavicular fracture Assessment: Acute left shoulder pain with significant loss of active ROM and localized tenderness over distal clavicle/humeral head after direct impact. Concern for rotator cuff injury; bony injury also to be excluded. Plan: * Obtain left shoulder and humerus X-rays today. * Advise limited use of left arm until imaging reviewed. * Follow-up: Patient already scheduled with Orthopedics on Friday for bilateral carpal tunnel; instructed to discuss shoulder findings at that visit. Problem #2: Head injury ? possible mild concussion Assessment: Head impact with possible brief loss of consciousness, transient resolved headache, currently asymptomatic with normal neurologic exam. Plan: * Patient educated on concussion precautions and warning signs of intracranial bleed (worsening headache, vomiting, confusion, focal deficits). * Advised to seek immediate emergency care if neurologic symptoms develop. * No CT performed in clinic ( none available). * Told her its recommended she gets one due to mechanism of injury and age. She feels fine and is not interested in goint to the ED at this time. Differential Diagnosis * Rotator cuff tear * Proximal humerus fracture * Clavicle fracture * Shoulder dislocation * Contusion/soft tissue injury * Brachial plexus injury * Concussion/head injury --> 66 years old raises risks for ICH (patient aware) 1220- Patient will go to ED for evaluati on --> Spoke to Kay[facility] Medical History Vaginal yeast infection Encounter for general adult medical examination with abnormal findings Nausea C. difficile diarrhea Elevated amylase Colon cancer screening Nausea and vomiting Pre-op examination Encounter for routine gynecological examination Syncope Chronic GERD Anxiety, generalized Prediabetes Hypertension, essential Lipid disorder Surgical History History of carpal tunnel release History of section Hx of cholecystectomy Family History Father HTN (hypertension) Myocardial infarction Colon cancer Crohn's disease Mother HTN (hypertension) Diverticulitis Brother CAD (coronary artery disease) Maternal Grandfather History of heart attack Maternal Grandmother Lung cancer Paternal Grandfather No problems noted. Paternal Grandmother No problems noted. Brother No problems noted. Brother No problems noted. Sister No problems noted. Sister No problems noted. Sister No problems noted. Son No problems noted. Daughter No problems noted. Social History Housing: House Patient Tobacco Use Status: Never used Tobacco e-Cigarette/Vaping Use: Never Used service: No Current occupational status: retired Cognitive needs: No Hearing needs: No Vision needs: No Review of Systems Narrative Review of Systems: Musculoskeletal: Positive for left shoulder/arm pain, decreased ROM. Neurologic: Denies current headache, vision changes, dizziness, weakness. Cardiovascular/Respiratory: Denies chest pain or shortness of breath. Gastrointestinal: Denies abdominal pain. (All other systems not discussed.) Const All systems reviewed & are unremarkable except as noted in HPI and below Physical Exam Exam Exam: General: Alert, in mild distress due to shoulder pain. Head: No palpable lumps or bumps noted by patient; no external trauma appreciated. Neuro: Oriented, able to walk unassisted; left leg strength intact; sensation intact to light touch in lower extremities. Cardiovascular: Distal pulses palpable and symmetric bilaterally. RRR Lungs; CTA b/l Musculoskeletal: Left upper extremity held adducted. Marked tenderness over distal clavicle and proximal humerus. Active abduction limited secondary to pain; patient unable to raise arm above chest level. Strength testing limited by pain. Elbow flexion/extension intact without pain. No posterior scapular tenderness. Vital Signs: Last Vital Signs Temp 97.7 F 01/22/25 11:31 Pulse 61 01/22/25 11:31 Resp 16 01/22/25 11:31 BP 126/80 01/22/25 11:31 Pulse Ox 98 01/22/25 11:31 Oxygen Delivery Method Room Air 01/22/25 11:31 vss Assessment & Plan Assessment & Plan (1) Left shoulder pain: Code(s): M25.512 - Pain in left shoulder (2) Head trauma: Code(s): S09.90XA - Unspecified injury of head, initial encounter Plan Patient will go [place] [facility] [place] Orders: Orders XR shoulder LT min 2V Today M25.512 - Pain in left shoulder XR humerus LT Today M25.512 - Pain in left shoulder Coding Level of Care Code Est Pt Level 3 (49601) Diagnoses Left shoulder pain M25.512 Head trauma S09.90XA
--- OUTSIDE RECORDS SUMMARY | 2025-01-22 11:22 | XMS_ITS | Patient Health Record ---
Author Organization [facility] Address [address] [place] [address] Care Team Providers Care Security Technician Name Role Phone Courtney العراقي, Liset Primary Care Provider Bud Summers Unavailable [phone] Reason For Referral No Information Medications Medication [...] Problem Status W/U Status Risk Notes Problem Information temporarily unavailable Encounter for screening for malignant neoplasm of colon (Z12.11) Active confirmed Problem Information temporarily unavailable History of adenomatous polyp of colon (Z86.010) Active confirmed Problem Information temporarily unavailable Encounter for screening for malignant neoplasm of rectum (Z12.12) Active confirmed Problem Information temporarily unavailable Gastroesophageal reflux disease without esophagitis (K21.9) Active confirmed Problem Information temporarily unavailable Family history of colon cancer (Z80.0) Active confirmed Problem Information temporarily unavailable Hiatal hernia (K44.9) Active confirmed Plan Of Treatment Future Test Test Name Order Date UPPER GI ENDOSCOPY 12/28/2015 COLONOSCOPY 12/28/2015 Insurance Providers Payer Name Payer Address Payer Phone Subscriber Number Group Number Insured Name Patient Relationship to Insured Coverage Start Date Coverage End Date [facility] [address] [place], [place] [id number] [phone] [id number] JANENE ROTHMAN Self - patient is the insured Medical (General) History Medical History History ICD Code Screening Colonoscopy--2009- -1 small tubular adenoma, hyperplastic polyp, diverticulosis, internal hemorrhoids GERD--small to moderate-size d Hiatal hernia--EGD in 08/2009--no esophagitis nor Voss's esophagus Denies OR,DM,CVA,Lung disease,renal dise ase Surgical History Surgery Date(Month/Year) Cholecystectomy Left breast surgery--benign
[2025-01-22 11:31] VITALS: BP 126/80; PULSE 61; RESP 16; TEMP 36.5; O2SAT 98
== END 2025-01-22 12:52 | disposition home or self-care (01) ==
PROVIDERS: PCP Internal Medicine; Visit Provider Physician Assistant
DX: M25.512 Pain in left shoulder (principal); S09.90XA Unspecified injury of head, initial encounter

== ENCOUNTER 2025-01-22 11:19 | Outpatient (REF) | payer BC, SELFPAY ==
--- NOTE | ~2025-01-22 | XR_ITS ---
CLINICAL HISTORY: M25.512 - Pain in left shoulder 2 view left shoulder Comparison: None provided Findings: No fractures or dislocations. Mild degenerative changes about the AC and glenohumeral joints. No erosions. No radiopaque foreign body. Left lung is clear. IMPRESSION: No acute left shoulder findings. This document has been electronically signed by: Paul Bolton MD on 01/22/2025 12:58:06
--- NOTE | ~2025-01-22 | XR_ITS ---
CLINICAL HISTORY: M25.512 - Pain in left shoulder 2 view left humerus Comparison: None provided Findings: No fractures or dislocations. No significant arthritic change. No radiopaque foreign body. IMPRESSION: No acute left humeral findings. This document has been electronically signed by: Paul Bolton MD on 01/22/2025 12:55:54
== END 2025-01-22 11:20 | disposition home or self-care (01) ==
LOC: HO.HMGCX 11:19
PROVIDERS: PCP Internal Medicine; Visit Provider Physician Assistant
DX: S09.90XA Unspecified injury of head, initial encounter (principal); M25.512 Pain in left shoulder; W01.0XXA Fall on same level from slipping, tripping and stumbling without subsequent striking against object, initial encounter
CPT/HCPCS: 73030; 73060

== ENCOUNTER → 2025-01-22 11:45 | Outpatient (BNV) | payer BC, SELFPAY | PROVIDERS: PCP Internal Medicine; Visit Provider Radiology Vascular & Interventional Radiology | DX: S09.90XA Unspecified injury of head, initial encounter (principal); Z04.3 Encounter for examination and observation following other accident; M25.512 Pain in left shoulder | CPT/HCPCS: 70450; 72125; 73030; 73060 ==

== ENCOUNTER 2025-01-22 12:34 | Emergency (ER) | payer BC, SELFPAY ==
--- NOTE | ~2025-01-22 | XR_ITS ---
CLINICAL HISTORY: fall onto L shoulder 4 views left shoulder Comparison: Prior exam performed the same day at 11:51 a.m. Findings: No fractures or dislocations. Trace acromioclavicular degenerative disease. No radiopaque foreign body. Normal visualized left chest. Impression: 1. No fracture or dislocation. This document has been electronically signed by: Jagdish Aviles MD on 01/22/2025 14:36:59
--- NOTE | ~2025-01-22 | CT_ITS ---
CLINICAL HISTORY: fall posterior head strike CT head without contrast Comparison: None Findings: No intracranial mass, midline shift, hydrocephalus, or acute hemorrhage. No CT evidence of acute ischemia. Visualized paranasal sinuses and mastoid air cells normal. Orbits unremarkable. No skull fracture Impression: 1. No acute intracranial abnormalities. This document has been electronically signed by: Jagdish Aviles MD on 01/22/2025 14:48:31
--- NOTE | ~2025-01-22 | CT_ITS ---
CLINICAL HISTORY: fall posterior head strike CT cervical spine without contrast Comparison: None Findings: Normal limited view of the intracranial contents. Soft tissues of the neck are normal. Lung apices are normal. Normal vertebral body alignment. No fractures or dislocations. Cervical degenerative disc changes are present, more significant C4-7. Impression: 1. No cervical vertebral fracture or traumatic malalignment. This document has been electronically signed by: Jagdish Aviles MD on 01/22/2025 14:56:35
[2025-01-22 12:49] VITALS: BP 156/71; PULSE 55; RESP 20; TEMP 36.6; O2SAT 98; BMI 31.8
--- NOTE | 2025-01-22 12:49 | ED.GENADULT ---
HPI - General Adult General Chief complaint: Extremity Injury, Upper Stated complaint: fall Related Data Previous Rx's ?Medication ?Instructions ?Recorded atenolol 50 mg tablet 50 mg PO DAILY #90 tabs 11/11/24 pantoprazole 40 mg tablet,delayed 40 mg PO DAILY 90 days #90 caps 01/04/25 release simvastatin 20 mg tablet 20 mg PO DAILY 90 days #90 tabs 01/04/25 escitalopram oxalate 5 mg tablet 5 mg PO DAILY #90 caps 01/17/25 Allergies Allergy/AdvReac Type Severity Reaction Status Date / Time No Known Allergies (No Known Allergy Verified 01/22/25 12:52 Allergies*) [facility] Past Medical History Medical History Vaginal yeast infection Encounter for general adult medical examination with abnormal findings Nausea C. difficile diarrhea Elevated amylase Colon cancer screening Nausea and vomiting Pre-op examination Encounter for routine gynecological examination Syncope Chronic GERD Anxiety, generalized Prediabetes Hypertension, essential Lipid disorder Surgical History History of carpal tunnel release History of section Hx of cholecystectomy Family History Family History Father HTN (hypertension) Myocardial infarction Colon cancer Crohn's disease Mother HTN (hypertension) Diverticulitis Brother CAD (coronary artery disease) Maternal Grandfather History of heart attack Maternal Grandmother Lung cancer Paternal Grandfather No problems noted. Paternal Grandmother No problems noted. Brother No problems noted. Brother No problems noted. Sister No problems noted. Sister No problems noted. Sister No problems noted. Son No problems noted. Daughter No problems noted. Social History Social History Housing: House Patient Tobacco Use Status: Never used Tobacco e-Cigarette/Vaping Use: Never Used Advance Directives: No Advance Directives Information Provided: No Do you have a plan to hurt others: No Plan service: No Current occupational status: retired Cognitive needs: No Hearing needs: No Vision needs: No Physical Exam ED Vital Signs: Vital Signs - 24 hr 01/22/25 12:49 Temperature 97.8 F Pulse Rate 55 Respiratory Rate 20 Blood Pressure 156/71 H Pulse Oximetry 98 BMI result Body Mass Index 31.8 Course Course Course Narrative: This is a Rapid Medical Examination (RME) performed by Larry Perez PA-C in triage. Full HPI, ROS, assessment and treatment plan per primary provider in the Main ED. Hx: 70 yo F here from walk in for eval of left shoulder pain s/p mechanical fall on the T in [place] yesterday. reports posterior head strike w/ LOC. landed on R shoulder. difficulty moving shoulder. no AC. Plan: imaging Reevaluation(s) Reevaluation #1: Patient left the emergency department before myself or any of the other clinicians could review or explain physical exam findings, test results, need or lack there of for additional testing, treatment options, or a treatment plan. Discharge Plan Discharge Clinical Impression: Fall Patient Disposition: Left W/O Completing Treatment Prescriptions: No Action atenolol 50 mg tablet 50 mg PO DAILY Qty: 90 0RF pantoprazole 40 mg tablet,delayed release (DR/EC) 40 mg PO DAILY 90 Days Qty: 90 0RF simvastatin 20 mg tablet 20 mg PO DAILY 90 Days Qty: 90 0RF escitalopram oxalate 5 mg tablet 5 mg PO DAILY Qty: 90 0RF Discharge Date/Time: 01/22/25 16:19
== END 2025-01-22 16:19 | disposition left against medical advice (07) ==
PROVIDERS: Emergency Provider Emergency Medicine; PCP Internal Medicine
DX: S09.90XA Unspecified injury of head, initial encounter (principal); M25.512 Pain in left shoulder; R51.9 Headache, unspecified; M54.2 Cervicalgia; W01.0XXA Fall on same level from slipping, tripping and stumbling without subsequent striking against object, initial encounter; Y93.01 Activity, walking, marching and hiking; Y92.816 Subway car as the place of occurrence of the external cause; Y99.8 Other external cause status
CPT/HCPCS: 70450; 72125; 73030; 99281; 99284

== ENCOUNTER 2025-01-24 13:11 | Outpatient (AMB) | payer BC, SELFPAY ==
[2025-01-24 13:14] VITALS: BMI 31.8
--- NOTE | 2025-01-24 13:14 | MHC.OFFVIS ---
Vital Signs 01/24/25 13:14 Height 5 ft 4 in Weight 185 lb BMI 31.8 Intake Visit Reasons: [employer]MAGD[employer] carpal tunnel syndrome Intake Note: Gabriela is a 70 year old right hand dominant female who presents today as a New Patient for evaluation of Bilateral Hand Numbness & Tingling. Patient complains of left hand numbness and tingling without associated sleep disturbance. Patient reports symptoms are daily and intermittent. She describes is as a burning sensation at the base of her left thumb. She also complains of stiffness forcing her to keep her hand partially closed. Denies finger locking. History of Right Carpal Tunnel Release by Dr. Champagne, ~ 2017 Impression 12/07/24: Moderately severe bilateral median neuropathy across carpal tunnel Allergies No Known Allergies (No Known Allergies*) Allergy (Verified 01/24/25 13:15) HPI HPI [employer] carpal tunnel syndrome: Details: Gabriela is a 70 year old right hand dominant female who presents today as a New Patient for evaluation of Bilateral Hand Numbness & Tingling. Patient complains of left hand numbness and tingling without associated sleep disturbance. Patient reports symptoms are daily and intermittent. Patient reports that the left hand is much worse in the right. She describes is as a burning sensation at the base of her left thumb. She also complains of stiffness forcing her to keep her hand partially closed. Denies finger locking. History of Right Carpal Tunnel Release by Dr. Champagne, ~ 2017 Impression 12/07/24: Moderately severe bilateral median neuropathy across carpal tunnel [facility] Medical History (Updated 01/23/25 @ 00:00 by Dana Pompa) Vaginal yeast infection Encounter for general adult medical examination with abnormal findings Nausea C. difficile diarrhea Elevated amylase Colon cancer screening Nausea and vomiting Pre-op examination Encounter for routine gynecological examination Syncope Chronic GERD Anxiety, generalized Prediabetes Hypertension, essential Lipid disorder Surgical History (Updated 01/24/25 @ 13:17 by GLORIA Decker) History of carpal tunnel release History of section Hx of cholecystectomy Family History Father HTN (hypertension) Myocardial infarction Colon cancer Crohn's disease Mother HTN (hypertension) Diverticulitis Brother CAD (coronary artery disease) Maternal Grandfather History of heart attack Maternal Grandmother Lung cancer Paternal Grandfather No problems noted. Paternal Grandmother No problems noted. Brother No problems noted. Brother No problems noted. Sister No problems noted. Sister No problems noted. Sister No problems noted. Son No problems noted. Daughter No problems noted. Social History (Updated 01/24/25 @ 13:16 by GLORIA Decker) Housing: House Patient Tobacco Use Status: Never used Tobacco e-Cigarette/Vaping Use: Never Used service: No Current occupational status: retired Current occupation: rt handed Cognitive needs: No Hearing needs: No Vision needs: No Review of Systems Const All systems reviewed & are unremarkable except as noted in HPI and below Physical Exam Vital Signs: BMI result Body Mass Index 31.8 Extrem Other: Neuro: Normal sensation of the tips of all digits of bilateral hands in the office today No thenar or intrinsic wasting. Good APB muscle firing and good finger cross. Vascular: Capillary refill brisk. ROM: Patient can make a fist and extend all their digits. Skin: No lacerations or abrasions noted. General: No ecchymosis. No erythema or evidence of infection. Assessment & Plan Assessment & Plan (1) Carpal tunnel syndrome, bilateral: Code(s): G56.03 - Carpal tunnel syndrome, bilateral upper limbs Category: Medical Plan 1. Left carpal tunnel syndrome Symptoms intermittent, daily, worse at night I educated the patient about the condition. I discussed both operative and nonoperative treatment options. The patient would like to proceed with surgery. The risks and benefits of operative treatment were discussed with the patient and the patient wishes to proceed with surgery. These risks include, but are not limited to, risk of damage to blood vessels, nerves, tendons, infection, recurrence, incomplete relief of preoperative symptoms, persistent pain, possible need for further surgery, and the risks associated with regional blocks and/or anesthesia. Plan is to take the patient to the operating room at some point in the next few weeks for the following procedures: 1. Left carpal tunnel release under local All of the preoperative paperwork including the consent was discussed today. All of the patient's questions were answered in the clinic today. The patient understands that they will be in contact with our rn surgical pcu to discuss scheduling their procedure. Patient denies diabetes, blood thinners, asthma, heart issues, lung issues, kidney issues, or current smoking. Coding Level of Care Code Est Pt Level 4 (03836) Diagnoses Carpal tunnel syndrome, bilateral G56.03
== END 2025-01-24 13:56 | disposition home or self-care (01) ==
LOC: HO.HOS 13:12
PROVIDERS: PCP Internal Medicine
DX: G56.03 Carpal tunnel syndrome, bilateral upper limbs (principal)
CPT/HCPCS: 99204

== ENCOUNTER 2025-01-28 10:40 | Outpatient (AMB) | payer BC, SELFPAY ==
[2025-01-28 10:44] VITALS: BP 129/72; PULSE 59
--- NOTE | 2025-01-28 10:44 | A.OFFVIS_ITS ---
Vital Signs 01/28/25 10:44 Height 5 ft 4 in BMI Reason not done Patient refused/unable BP 129/72 Blood Pressure Location Lt brachial Position Sitting Pulse 59 Comment PT declined to have wt taken Intake Visit Reasons: ct result Intake Note: Gabriela presents in office today for CT and MRI results. CC: Patient reports that the reason why sht had the CT scan done for is not longer a problem and now she has some other problems. She states that she needs to see a doctor for her kidneys. Prototype Sewer Required: No Accompanied by: Self / Same As Patient Allergies No Known Allergies (No Known Allergies*) Allergy (Verified 01/28/25 10:53) HPI HPI ct result: Details: Assessment & Plan (1) Abdominal pain: Code(s): R10.9 - Unspecified abdominal pain Category: Medical (2) Right ankle pain: Code(s): M25.571 - Pain in right ankle and joints of right foot Category: Medical (3) Tubular adenoma of colon: Code(s): D12.6 - Benign neoplasm of colon, unspecified Category: Medical (4) Chronic GERD: Code(s): K21.9 - Gastro-esophageal reflux disease without esophagitis Category: Medical (5) Family history of Crohn's disease: Code(s): Z83.79 - Family history of other diseases of the digestive system Category: Medical Plan History of Present Illness - The patient is a 69 year old female presenting with loose stools that have persisted after C diff infection. - Symptoms include passing stools 3-4 times daily with an oily consistency. - She denies abdominal pain currently but had a prior episode of some pain thought to be related to constipation. - Patient had her gallbladder removed many years ago. - No inflammatory bowel disease or significant food allergies detected in recent evaluations. - Daily fiber supplements have not significantly altered symptoms thus far. - Concerns revolve primarily around the sudden change in bowel habits and its potential implications. Specifically she is quite worried that she might have cancer. I believe that this is simply a combination of a severe intestinal infection combined with age-related changes and the pancreas not being able to produce the enzyme as well to help her digest fat. Plan - Initiate a bile binding agent trial with Carafate, starting at half a tablet daily, to manage stool consistency. - Arrange for an abdominal CT scan after confirming renal function with updated laboratory work. - Maintain fiber supplement, I have given her a quantity of 2 Carafate per day and she can adjust this upper down to her knee. We want to make sure we do not make her severely constipated as this cause her some pain in the past. - Follow-up post-CT scan to reassess treatment efficacy and patient symptomatology. - Advise patient to report new or worsening symptoms or adverse medication effects. Patient was informed and verbally consented to the use of an ambient scribe for clinic note documentation during this visit. Patient Instructions - Start taking half a tablet of Carafate each day. Gradually adjust the dose based on how you feel. - Discontinue MiraLax for now, but continue using your daily fiber supplement. - once radiology calls it to schedule the CAT scan call our office to schedule a follow-up appointment. - Report any new or worsening symptoms, such as more frequent stools or abdominal pain. - Contact us if you have any side effects from the medication. -please go for x-ray of your ankle and foot today. If it is fractured I will then refer you for appropriate care, if it is a sprain you will probably need to get an ankle support or Piter wrap and be nonweightbearing for period of time until it heals. Doorknob complaint of right ankle/foot pain. Patient can not identify any particular trauma. Physical exam there is an area of what looks like dependent bruising below the ankle pain on the lateral malleolus no particular pain along any of the lateral tarsus. Getting an x-ray of the foot and ankle. Return office visit after CAT scan Orders: Orders CT abdomen pelvis w IV con Today R10.9 - Unspecified abdominal pain Blood Urea Nitrogen Today R10.9 - Unspecified abdominal pain XR foot RT 2V Today M25.571 - Pain in right ankle and joints of right foot Creatinine Today R10.9 - Unspecified abdominal pain XR ankle RT min 3V Today M25.571 - Pain in right ankle and joints of right foot Medications: New sucralfate (Carafate) 2 grams (2 x 1 gram) PO QNOON 60 tabs 6RF barium sulfate 2%(w/v) (Readi-Cat 2) 150 mL PO ONCE 300 mL 0RF 1 day R10.9 - Unspecified abdominal pain Discontinued Zepbound (tirzepatide (weight loss)) for 4 weeks Discontinued Reason: Patient Completed Course 2.5 mg (0.5 mL) subcut QWEEK 2 mL 0RF NS X-RAY OF THE ANKLES 10/13/2024 FINDINGS: No fracture, dislocation, or suspicious bone lesion. No malalignment. The mortise is intact. The talar dome is normal. The subtalar joints appear normal. There are moderate-sized plantar and dorsal calcaneal spurs. There is no soft tissue abnormality. XR/XR ankle RT min 3V IMPRESSION: No acute findings of the right ankle. FINDINGS: No acute abnormality seen. There are moderate enthesophytes on calcaneus at the plantar fascial and Achilles attachments. There are no other abnormalities. XR/XR foot RT 2V IMPRESSION: Nonspecific calcaneal enthesophytes, stable. CT ABDOMEN AND PELVIS 12/10/2024 FINDINGS: LUNG BASES: No acute airspace disease. LIVER, GALLBLADDER, AND BILIARY TREE: Liver measures 16 cm. No focal mass. Portal veins, hepatic veins are patent. Gallbladder is absent. No intrahepatic or extrahepatic biliary ductal dilatation. PANCREAS: 3 cm soft tissue fullness, head of the pancreas. No peripancreatic fluid collection. No main pancreatic ductal dilatation. SPLEEN: 8 cm. No focal mass. ADRENAL GLANDS: No nodular lesions. KIDNEYS AND URETERS: 12 mm exophytic hypodensity, upper pole right kidney which measures 74 Hounsfield units. No hydronephrosis or nephrolithiasis in either kidney. BLADDER: Fluid-filled. GASTROINTESTINAL TRACT: Small hiatal hernia. Abundant stool, large intestine. Numerous diverticula in the sigmoid colon. No intestinal obstruction pattern. Terminal ileum is normal. Probable small normal appendix. No ascites. No pneumoperitoneum. No pneumatosis intestinalis. ABDOMINAL WALL: No umbilical hernia. LYMPH NODES: No specific prominent mesenteric. VASCULAR: Calcified plaques abdominal aorta wall and iliac arteries without aneurysm or dissection. Calcified plaques in the aortic valve. PELVIC VISCERA: Not enlarged. OSSEOUS STRUCTURES: Multilevel thoracolumbar spondylosis pronounced at L5-S1. 4.5 cm fat density lesion versus mass in the anterior right hip likely right iliac muscle. CT/CT abdomen pelvis w IV con IMPRESSION: Questionable 3 cm soft tissue fullness, pancreatic head. 12 mm exophytic hypodense lesion upper pole right kidney. Recommend dedicated dynamic IV contrast enhanced MRI abdomen. Diverticular disease, sigmoid colon. 4.5 cm lipoma, right iliac muscle. Atherosclerosis disease. Hepatomegaly, mild. Spondylosis, L5-S1. MRI OF THE ABDOMEN FINDINGS: LUNG BASES: No signal abnormality or enhancing lesion. LIVER, GALLBLADDER, AND BILIARY TREE: Liver measures 15 cm. Normal signal. No solid or cystic enhancing mass. Gallbladder is absent. No intrahepatic or extrahepatic biliary ductal dilatation. Common bile duct measures 4.4 mm. PANCREAS: No solid or cystic lesion. Main pancreatic duct measures 1.5 mm. No peripancreatic fluid collection. SPLEEN: 9 cm. No solid or cystic lesion. ADRENAL GLANDS: No nodular lesion. KIDNEYS AND URETERS: Right kidney: There is an 11 mm ill-defined isointense T1 and T2 probably thin septated mildly enhancing exophytic lesion in the upper pole. No hydronephrosis. No dilatation of the ureter. Left kidney: No hydronephrosis. Less than 1 cm nonenhancing fluid signal characteristic lesions. Normal enhancement pattern of the renal cortex. No dilatation of the ureter. GASTROINTESTINAL TRACT: Hiatal hernia, small to moderate size. No intestinal dilatation. Abundant stool. Collapsed appearance of the transverse colon and descending colon. ABDOMINAL WALL: No umbilical hernia. LYMPH NODES: No mesenteric or retroperitoneal lymphadenopathy. VASCULAR: No aneurysm or dissection, abdominal aorta. 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 OSSEOUS STRUCTURES: Mild multilevel lower spondylosis. MR/MR abdomen wo/w con IMPRESSION: 11 mm exophytic lesion upper pole right kidney. Concerning for malignancy. No pancreatic mass. TODAY'S VISIT [facility] Medical History Vaginal yeast infection Encounter for general adult medical examination with abnormal findings Nausea C. difficile diarrhea Elevated amylase Colon cancer screening Nausea and vomiting Pre-op examination Encounter for routine gynecological examination Syncope Chronic GERD Anxiety, generalized Prediabetes Hypertension, essential Lipid disorder Surgical History History of carpal tunnel release History of section Hx of cholecystectomy Family History Father HTN (hypertension) Myocardial infarction Colon cancer Crohn's disease Mother HTN (hypertension) Diverticulitis Brother CAD (coronary artery disease) Maternal Grandfather History of heart attack Maternal Grandmother Lung cancer Paternal Grandfather No problems noted. Paternal Grandmother No problems noted. Brother No problems noted. Brother No problems noted. Sister No problems noted. Sister No problems noted. Sister No problems noted. Son No problems noted. Daughter No problems noted. Social History Housing: House Patient Tobacco Use Status: Never used Tobacco e-Cigarette/Vaping Use: Never Used service: No Current occupational status: retired Current occupation: rt handed Cognitive needs: No Hearing needs: No Vision needs: No Review of Systems Const Denies fatigue, Denies fever(s), Denies night sweats, Denies poor appetite and Denies weight loss ENT Reports Normal hearing present, Denies dental pain, Denies dysphagia, Denies hearing loss, Denies mouth pain, Denies odynophagia, Denies throat swelling, Denies tongue swelling and Reports other (Dentition adequate) Card Reports no additional complaints Resp Reports no additional complaints GI Details: Denies abdominal pain, Denies melena, Denies bloating, Denies hematochezia, Reports constipation, Denies GI cramping, Denies dysphagia, Denies excessive flatus, Denies early satiety, Reports heartburn, Denies diarrhea, Reports loose stools, Denies nausea, Denies odynophagia, Denies vomiting and Denies hematemesis Skin/Breast Denies pruritus, Denies lesions, Denies rash and Denies jaundice Neuro Reports Normal hearing present and Denies Abnormal speech present Endo Denies fatigue Aller/Immun Denies throat swelling and Denies tongue swelling Physical Exam Vital Signs: Last Vital Signs Pulse 59 01/28/25 10:44 BP 129/72 01/28/25 10:44 Const General: cooperative, no acute distress, well developed and well groomed Nutritional Appearance: well nourished and obese Orientation/consciousness: oriented to person, oriented to place and oriented to time Limitations: No language barrier HEENT Head: Yes normocephalic and Yes atraumatic Eyes General: appearance normal, both eyes and all related structures Pupils: Equal, round and reactive pupils present Neck Neck: Yes normal visual inspection and Yes no lymphadenopathy Thyroid: Thyroid normal Resp Effort & Inspection: normal respiratory effort and able to speak in complete sentences Auscultation: clear to auscultation bilaterally Cardio Rate: regular rate Rhythm: regular rhythm Heart sounds: Normal, physiologic split S2 sound present Peripheral pulses: radial pulses present and posterior tibial pulses present GI Inspection: No distended, Yes Abdominal panniculus present and Yes obesity Palpation (GI): Soft to palpation, nontender, no guarding, not rigid and No hepatosplenomegaly present Percussion: Yes normal to percussion Auscultation: normal bowel sounds Rectal Exam - Female: deferred Skin General skin exam: no rashes or lesions noted, turgor normal, skin not dry, no jaundice, No spider nevi and no striae Rashes: no rashes Nails: normal Neuro General: oriented to person, oriented to place and oriented to time Cranial nerves: Yes Equal, round and reactive pupils present and Yes Normal hearing present Speech: No Abnormal speech present Extrem General: Yes normal to inspection, No clubbing, No cyanosis and No edema Psych Appearance: grossly normal and well kempt Mental Status: mental status grossly normal Speech and movement: Normal speech and movement present Affect: normal affect Attitude: cooperative Thought process: Normal thought process present and not confabulating Thought content: Normal thought content present Insight: Good insight present (Psych) Judgement: Good judgement present (Psych) Results Reviewed Results Reviewed: Laboratory Tests 12/23/24 11:16 CA 19-9 Antigen 5 X-RAY OF THE ANKLES 10/13/2024 FINDINGS: No fracture, dislocation, or suspicious bone lesion. No malalignment. The mortise is intact. The talar dome is normal. The subtalar joints appear normal. There are moderate-sized plantar and dorsal calcaneal spurs. There is no soft tissue abnormality. XR/XR ankle RT min 3V IMPRESSION: No acute findings of the right ankle. FINDINGS: No acute abnormality seen. There are moderate enthesophytes on calcaneus at the plantar fascial and Achilles attachments. There are no other abnormalities. XR/XR foot RT 2V IMPRESSION: Nonspecific calcaneal enthesophytes, stable. CT ABDOMEN AND PELVIS 12/10/2024 FINDINGS: LUNG BASES: No acute airspace disease. LIVER, GALLBLADDER, AND BILIARY TREE: Liver measures 16 cm. No focal mass. Portal veins, hepatic veins are patent. Gallbladder is absent. No intrahepatic or extrahepatic biliary ductal dilatation. PANCREAS: 3 cm soft tissue fullness, head of the pancreas. No peripancreatic fluid collection. No main pancreatic ductal dilatation. SPLEEN: 8 cm. No focal mass. ADRENAL GLANDS: No nodular lesions. KIDNEYS AND URETERS: 12 mm exophytic hypodensity, upper pole right kidney which measures 74 Hounsfield units. No hydronephrosis or nephrolithiasis in either kidney. BLADDER: Fluid-filled. GASTROINTESTINAL TRACT: Small hiatal hernia. Abundant stool, large intestine. Numerous diverticula in the sigmoid colon. No intestinal obstruction pattern. Terminal ileum is normal. Probable small normal appendix. No ascites. No pneumoperitoneum. No pneumatosis intestinalis. ABDOMINAL WALL: No umbilical hernia. LYMPH NODES: No specific prominent mesenteric. VASCULAR: Calcified plaques abdominal aorta wall and iliac arteries without aneurysm or dissection. Calcified plaques in the aortic valve. PELVIC VISCERA: Not enlarged. OSSEOUS STRUCTURES: Multilevel thoracolumbar spondylosis pronounced at L5-S1. 4.5 cm fat density lesion versus mass in the anterior right hip likely right iliac muscle. CT/CT abdomen pelvis w IV con IMPRESSION: Questionable 3 cm soft tissue fullness, pancreatic head. 12 mm exophytic hypodense lesion upper pole right kidney. Recommend dedicated dynamic IV contrast enhanced MRI abdomen. Diverticular disease, sigmoid colon. 4.5 cm lipoma, right iliac muscle. Atherosclerosis disease. Hepatomegaly, mild. Spondylosis, L5-S1. MRI OF THE ABDOMEN FINDINGS: LUNG BASES: No signal abnormality or enhancing lesion. LIVER, GALLBLADDER, AND BILIARY TREE: Liver measures 15 cm. Normal signal. No solid or cystic enhancing mass. Gallbladder is absent. No intrahepatic or extrahepatic biliary ductal dilatation. Common bile duct measures 4.4 mm. PANCREAS: No solid or cystic lesion. Main pancreatic duct measures 1.5 mm. No peripancreatic fluid collection. SPLEEN: 9 cm. No solid or cystic lesion. ADRENAL GLANDS: No nodular lesion. KIDNEYS AND URETERS: Right kidney: There is an 11 mm ill-defined isointense T1 and T2 probably thin septated mildly enhancing exophytic lesion in the upper pole. No hydronephrosis. No dilatation of the ureter. Left kidney: No hydronephrosis. Less than 1 cm nonenhancing fluid signal characteristic lesions. Normal enhancement pattern of the renal cortex. No dilatation of the ureter. GASTROINTESTINAL TRACT: Hiatal hernia, small to moderate size. No intestinal dilatation. Abundant stool. Collapsed appearance of the transverse colon and descending colon. ABDOMINAL WALL: No umbilical hernia. LYMPH NODES: No mesenteric or retroperitoneal lymphadenopathy. VASCULAR: No aneurysm or dissection, abdominal aorta. 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 OSSEOUS STRUCTURES: Mild multilevel lower spondylosis. MR/MR abdomen wo/w con IMPRESSION: 11 mm exophytic lesion upper pole right kidney. Concerning for malignancy. No pancreatic mass. Assessment & Plan Assessment & Plan (1) Pancreatic lesion: Comment: Ruled out as an actual lesion with follow-up MRI Code(s): K86.9 - Disease of pancreas, unspecified Category: Medical (2) Diarrhea: Code(s): R19.7 - Diarrhea, unspecified Category: Medical (3) Hiatal hernia: Code(s): K44.9 - Diaphragmatic hernia without obstruction or gangrene Category: Medical (4) Abdominal pain: Code(s): R10.9 - Unspecified abdominal pain Category: Medical (5) Chronic GERD: Code(s): K21.9 - Gastro-esophageal reflux disease without esophagitis Category: Medical (6) Right ankle pain: Code(s): M25.571 - Pain in right ankle and joints of right foot Category: Medical (7) Kidney lesion: Code(s): N28.9 - Disorder of kidney and ureter, unspecified Category: Medical Plan Subjective Patient presents to review recent imaging and symptoms. Initially concerned for a pancreatic problem, now reassured after blood work. She previously had increased bowel movements that have since calmed down; sucralfate did not help. 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 She asks about diverticular disease and expresses concern about a kidney ?hosea? noted on imaging. She prefers nephrology over urology for the kidney issue and requests a specific shear grinder operator helper. She reports a burning pain in the left leg requiring topical creams and pressure for relief, though she denies back pain. Gastrointestinal symptoms are well controlled with pantoprazole and added fiber, which she feels are helping. Relevant Past Medical, Social, and Family History - History of C. difficile infection (four courses of treatment) - Hyperlipidemia treated with cholesterol medicine Objective - Completed investigations and results: - Kidney MRI: Thin septated, mildly enhancing exophytic lesion in the upper pole; no hydronephrosis or dilation. - CT abdomen/pelvis: Diverticular disease; fat-density change of the right iliac muscle consistent with fatty replacement; lumbar spondylosis at L5?S1; calcified plaques in the abdominal aorta and iliac arteries without aneurysm or dissection; calcification involving the aortic valve; mild hepatomegaly consistent with fatty liver; pancreatic head without concerning findings. - Blood work: Results reassuring regarding pancreatic pathology per discussion. Assessment & Plan Renal lesion (upper pole, thin septated mildly enhancing exophytic lesion): Incidental lesion on MRI; no hydronephrosis. Low immediate concern but requires specialty evaluation to characterize and exclude clinically significant pathology. - Referral changed from urology to nephrology per patient preference and clinical appropriateness; referral placed to the requested shear grinder operator helper. - Patient to call nephrology to schedule; advised to cancel the urology appointment. - Discussed that nephrology may consider further characterization, potentially including ultrasound-guided biopsy. - Reassurance provided; goal is to exclude significant disease to alleviate worry. Diverticular disease: Education provided that risk of diverticulitis is low and not predicted by number or location of diverticula. Primary modifiable factor is avoiding constipation. - Continue measures to avoid constipation; patient currently without constip ation. Left leg burning pain; lumbar spondylosis with evidence of right iliac muscle fatty replacement: Symptoms described as burning, consistent with neuropathic pain. Imaging shows lumbar spondylosis (L5?S1) and fatty replacement of right iliac muscle suggesting chronic denervation; patient denies back pain. - Recommend patient ask primary care to obtain a dedicated MRI of the lumbar spine to assess for nerve impingement/radiculopathy. Atherosclerosis and aortic valve calcification: CT shows calcified plaques in abdominal aorta and iliac arteries without aneurysm/dissection; calcification noted at the aortic valve. Patient on cholesterol medication. - Continue lipid-lowering therapy. - Advise routine cardiac auscultation by primary care for development of a murmur; if present, consider echocardiographic evaluation for aortic stenosis. Mild hepatomegaly consistent with fatty liver: Reassured as mild; no immediate intervention discussed today. - Monitor clinically with primary care. Gastroesophageal symptoms; prior bowel frequency: Symptoms improved. Pantoprazole and dietary fiber are effective. - Continue pantoprazole as prescribed. - Continue daily fiber supplement. - Follow-up in GI clinic in 6 months. - Patient to update me regarding outcomes from nephrology evaluation. Orders: Referrals Nephrology Referral N28.9 - Disorder of kidney and ureter, unspecified Coding Level of Care Code Est Pt Level 4 (05482) Diagnoses Pancreatic lesion K86.9 Diarrhea R19.7 Hiatal hernia K44.9 Abdominal pain R10.9 Chronic GERD K21.9 Right ankle pain M25.571 Kidney lesion N28.9 Time Spent (min) 37
--- OUTSIDE RECORDS SUMMARY | 2025-01-28 12:47 | XMS_ITS | Patient Health Record ---
Author Organization [facility] Address [address] [place] [address] Care Team Providers Care Employment Adjudicator Name Role Phone Courtney العراقي, Liset Primary Care Provider Bud Summers Unavailable [phone] Reason For Referral No Information Medications Medication [...] Problem Screening for malignant neoplasm of colon (600267575) Encounter for screening for malignant neoplasm of colon (Z12.11) Active confirmed Problem History of adenomatous polyp of colon (918267061) History of adenomatous polyp of colon (Z86.010) Active confirmed Problem Screening for malignant neoplasm of rectum (654346664) Encounter for screening for malignant neoplasm of rectum (Z12.12) Active confirmed Problem Gastroesophageal reflux disease without esophagitis (424641534) Gastroesophageal reflux disease without esophagitis (K21.9) Active confirmed Problem Family History of Cancer of Colon (Situation) (431250633) Family history of colon cancer (Z80.0) Active confirmed Problem Hiatal hernia (84023206) Hiatal hernia (K44.9) Active confirmed Plan Of Treatment Future Test Test Name Order Date UPPER GI ENDOSCOPY 12/28/2015 COLONOSCOPY 12/28/2015 Insurance Providers Payer Name Payer Address Payer Phone Subscriber Number Group Number Insured Name Patient Relationship to Insured Coverage Start Date Coverage End Date [facility] [address] [place], [place] [id number] Self - patient is the insured Medical (General) History Medical History History ICD Code Screening Colonoscopy--2009- -1 small tubular adenoma, hyperplastic polyp, diverticulosis, internal hemorrhoids GERD--small to moderate-size d Hiatal hernia--EGD in 08/2009--no esophagitis nor Voss's esophagus Denies HI,DM,CVA,Lung disease,renal dise ase Surgical History Surgery Date(Month/Year) Cholecystectomy Left breast surgery--benign
== END 2025-01-28 11:22 | disposition home or self-care (01) ==
LOC: HO.HGI 10:41
PROVIDERS: PCP Internal Medicine; Visit Provider Nurse Practitioner
DX: K86.9 Disease of pancreas, unspecified (principal); R19.7 Diarrhea, unspecified; K44.9 Diaphragmatic hernia without obstruction or gangrene; R10.9 Unspecified abdominal pain; K21.9 Gastro-esophageal reflux disease without esophagitis; M25.571 Pain in right ankle and joints of right foot; N28.9 Disorder of kidney and ureter, unspecified
CPT/HCPCS: 99214